=== PATIENT | male | born 1945 | race Caucasian/White ===

== ENCOUNTER → 2023-07-16 13:03 | Outpatient (REF) | payer MEDICARE, OTHER, SELFPAY ==
[2023-07-16 12:19] LABS: % Basophils 0.5 % (0-2); % Eosinophils 5.1 % (0-6); % Immature Granulocytes 0.2 % (0-0.5); % Lymphocytes 42.7 % (20.5-51.1); % Monocytes 8.7 % (1.7-9.3); % Neutrophils 42.8 % (42.2-75.2); Absolute Eosinophils 0.3 10^3/uL (0-0.7); Absolute Lymphocytes 2.8 10^3/uL (1.2-3.4); Absolute Monocytes 0.6 10^3/uL (0.1-0.6); Absolute Neutrophils 2.8 10^3/uL (1.4-6.5); Hematocrit 38.8 % (39.0-52.0); Hemoglobin 13.1 g/dL (13.0-18.0); Mean Corp Hgb Conc. 33.8 g/dL (33.0-37.0); Mean Corpuscular Hgb 32.2 pg (27.0-31.0); Mean Corpuscular Volume 95.3 fL (80.0-94.0); Mean Platelet Volume 9.9 fL (7.4-10.4); Platelet Count 256 10^3/uL (130-400); Red Blood Cell Count 4.07 10^6/uL (4.70-6.10); White Blood Cell Count 6.4 10^3/uL (4.8-10.8)
[2023-07-16 13:07] LABS: ALT (SGPT) 19 U/L (0-50); AST (SGOT) 36 U/L (17-59); Albumin 4.3 g/dl (3.5-5.0); Alkaline Phosphatase 65 U/L (38-126); Blood Urea Nitrogen 22 mg/dl (9-20); Calcium 9.9 mg/dl (8.4-10.2); Carbon Dioxide 26 mmol/L (22-30); Chloride 105 mmol/L (98-107); Glucose 110 mg/dl (70-99); Sodium 137 mmol/L (135-145); Total Bilirubin 0.9 mg/dl (0.2-1.3); Total Protein 7.1 g/dl (6.3-8.2); eGFR > 60.00
[2023-07-16 13:27] LABS: PSA, Total - Diagnostic 2.28 ng/ml (0.0-4.0)
== END ==
LOC: OIDL 13:03
PROVIDERS: ATTENDING PHYSICIAN Nurse Practitioner Adult Health
DX: C61 Malignant neoplasm of prostate (principal)
CPT/HCPCS: 80053; 84153; 85025

== ENCOUNTER → 2023-08-06 09:45 | Outpatient (REF) | payer MEDICARE, OTHER, SELFPAY ==
[2023-08-06 12:42] LABS: % Basophils 0.7 % (0-2); % Eosinophils 2.7 % (0-6); % Immature Granulocytes 0.3 % (0-0.5); % Lymphocytes 34.8 % (20.5-51.1); % Monocytes 8.8 % (1.7-9.3); % Neutrophils 52.7 % (42.2-75.2); Absolute Basophils 0.1 10^3/uL (0-0.2); Absolute Eosinophils 0.3 10^3/uL (0-0.7); Absolute Lymphocytes 4.2 10^3/uL (1.2-3.4); Absolute Monocytes 1.1 10^3/uL (0.1-0.6); Absolute Neutrophils 6.3 10^3/uL (1.4-6.5); Hematocrit 38.3 % (39.0-52.0); Hemoglobin 12.9 g/dL (13.0-18.0); Mean Corp Hgb Conc. 33.7 g/dL (33.0-37.0); Mean Platelet Volume 10.6 fL (7.4-10.4); Nucleated Red Blood Cells % 0 % (-); Platelet Count 316 10^3/uL (130-400); Red Blood Cell Count 4.03 10^6/uL (4.70-6.10); Red Cell Dist. Width 12.8 % (11.5-14.5); White Blood Cell Count 11.9 10^3/uL (4.8-10.8)
[2023-08-06 13:16] LABS: ALT (SGPT) 18 U/L (0-50); AST (SGOT) 34 U/L (17-59); Albumin 4.5 g/dl (3.5-5.0); Alkaline Phosphatase 60 U/L (38-126); Blood Urea Nitrogen 27 mg/dl (9-20); Calcium 10.1 mg/dl (8.4-10.2); Carbon Dioxide 26 mmol/L (22-30); Chloride 104 mmol/L (98-107); Glucose 84 mg/dl (70-99); Potassium 4.6 mmol/L (3.5-5.1); Sodium 135 mmol/L (135-145); Total Protein 7.3 g/dl (6.3-8.2); eGFR > 60.00
[2023-08-06 13:47] LABS: PSA, Total - Diagnostic 2.28 ng/ml (0.0-4.0)
== END ==
LOC: HWLAB 09:45
PROVIDERS: ATTENDING PHYSICIAN Internal Medicine Hematology & Oncology; FAMILY PHYSICIAN Family Medicine
DX: C61 Malignant neoplasm of prostate (principal); C79.51 Secondary malignant neoplasm of bone; G89.3 Neoplasm related pain (acute) (chronic)
CPT/HCPCS: 36415; 80053; 84153; 85025

== ENCOUNTER → 2023-09-03 12:39 | Outpatient (REF) | payer MEDICARE, OTHER, SELFPAY ==
[2023-09-03 16:17] LABS: % Basophils 0.8 % (0-2); % Eosinophils 4.5 % (0-6); % Immature Granulocytes 0.4 % (0-0.5); % Lymphocytes 43.9 % (20.5-51.1); % Monocytes 9.2 % (1.7-9.3); % Neutrophils 41.2 % (42.2-75.2); Absolute Basophils 0.1 10^3/uL (0-0.2); Absolute Eosinophils 0.4 10^3/uL (0-0.7); Absolute Lymphocytes 3.7 10^3/uL (1.2-3.4); Absolute Monocytes 0.8 10^3/uL (0.1-0.6); Absolute Neutrophils 3.4 10^3/uL (1.4-6.5); Hematocrit 37.9 % (39.0-52.0); Hemoglobin 12.9 g/dL (13.0-18.0); Mean Corpuscular Hgb 32.7 pg (27.0-31.0); Mean Corpuscular Volume 95.9 fL (80.0-94.0); Mean Platelet Volume 10.9 fL (7.4-10.4); Nucleated Red Blood Cells % 0 % (-); Platelet Count 282 10^3/uL (130-400); Red Blood Cell Count 3.95 10^6/uL (4.70-6.10); Red Cell Dist. Width 12.5 % (11.5-14.5); White Blood Cell Count 8.4 10^3/uL (4.8-10.8)
[2023-09-03 16:20] LABS: ALT (SGPT) 17 U/L (0-50); AST (SGOT) 35 U/L (17-59); Albumin 4.2 g/dl (3.5-5.0); Alkaline Phosphatase 67 U/L (38-126); Blood Urea Nitrogen 25 mg/dl (9-20); Calcium 10.4 mg/dl (8.4-10.2); Carbon Dioxide 28 mmol/L (22-30); Chloride 103 mmol/L (98-107); Glucose 88 mg/dl (70-99); Potassium 4.3 mmol/L (3.5-5.1); Sodium 136 mmol/L (135-145); Total Bilirubin 1.1 mg/dl (0.2-1.3); eGFR > 60.00
[2023-09-03 16:50] LABS: PSA, Total - Diagnostic 1.79 ng/ml (0.0-4.0)
== END ==
LOC: HWLAB 12:39
PROVIDERS: ATTENDING PHYSICIAN Internal Medicine Hematology & Oncology; FAMILY PHYSICIAN Family Medicine
DX: C61 Malignant neoplasm of prostate (principal); C79.51 Secondary malignant neoplasm of bone; G89.3 Neoplasm related pain (acute) (chronic)
CPT/HCPCS: 36415; 80053; 84153; 85025

== ENCOUNTER → 2023-10-01 10:56 | Outpatient (REF) | payer MEDICARE, OTHER, SELFPAY ==
[2023-10-01 12:19] LABS: % Basophils 0.7 % (0-2); % Eosinophils 3.2 % (0-6); % Immature Granulocytes 0.3 % (0-0.5); % Lymphocytes 39.1 % (20.5-51.1); % Monocytes 8.1 % (1.7-9.3); % Neutrophils 48.6 % (42.2-75.2); Absolute Basophils 0.1 10^3/uL (0-0.2); Absolute Eosinophils 0.3 10^3/uL (0-0.7); Absolute Lymphocytes 3.5 10^3/uL (1.2-3.4); Absolute Monocytes 0.7 10^3/uL (0.1-0.6); Absolute Neutrophils 4.4 10^3/uL (1.4-6.5); Hematocrit 37.1 % (39.0-52.0); Hemoglobin 12.5 g/dL (13.0-18.0); Mean Corp Hgb Conc. 33.7 g/dL (33.0-37.0); Mean Corpuscular Hgb 32.6 pg (27.0-31.0); Mean Corpuscular Volume 96.9 fL (80.0-94.0); Mean Platelet Volume 10.3 fL (7.4-10.4); Nucleated Red Blood Cells % 0 % (-); Platelet Count 286 10^3/uL (130-400); Red Blood Cell Count 3.83 10^6/uL (4.70-6.10); Red Cell Dist. Width 12.8 % (11.5-14.5)
[2023-10-01 12:21] LABS: ALT (SGPT) 15 U/L (0-50); AST (SGOT) 28 U/L (17-59); Albumin 4.2 g/dl (3.5-5.0); Alkaline Phosphatase 59 U/L (38-126); Blood Urea Nitrogen 23 mg/dl (9-20); Calcium 10.1 mg/dl (8.4-10.2); Carbon Dioxide 30 mmol/L (22-30); Chloride 102 mmol/L (98-107); Glucose 104 mg/dl (70-99); Potassium 4.6 mmol/L (3.5-5.1); Sodium 139 mmol/L (135-145); Total Bilirubin 0.8 mg/dl (0.2-1.3); Total Protein 6.9 g/dl (6.3-8.2); eGFR > 60.00
[2023-10-01 12:59] LABS: PSA, Total - Diagnostic 2.07 ng/ml (0.0-4.0)
== END ==
LOC: HWLAB 10:56
PROVIDERS: ATTENDING PHYSICIAN Internal Medicine Hematology & Oncology; FAMILY PHYSICIAN Family Medicine
DX: C61 Malignant neoplasm of prostate (principal); C79.51 Secondary malignant neoplasm of bone; G89.3 Neoplasm related pain (acute) (chronic)
CPT/HCPCS: 36415; 80053; 84153; 85025

== ENCOUNTER 2023-10-07 06:18 | Outpatient (RCR) | payer MEDICARE, OTHER, SELFPAY | END 2023-10-07 10:34 | disposition home or self-care (01) | LOC: RPT 06:18 | PROVIDERS: ATTENDING PHYSICIAN Nurse Practitioner Adult Health; FAMILY PHYSICIAN Family Medicine | DX: G89.3 Neoplasm related pain (acute) (chronic) (principal); R53.83 Other fatigue; R26.89 Other abnormalities of gait and mobility; Z73.6 Limitation of activities due to disability | CPT/HCPCS: 97161 ==

== ENCOUNTER 2023-10-25 16:13 | Inpatient (IN) | payer MEDICARE, OTHER, SELFPAY ==
[2023-10-25] VITALS (24 sets, daily range): BP systolic 83–131; BP diastolic 40–88; BMI 33.4
--- NOTE | 2023-10-25 07:58 | ED.GENMED ---
History of Present Illness
General
Chief Complaint: Breathing Problem
Time Seen by Provider: 10/25/23 07:52
History of Present Illness
History of Present Illness:
77-year-old male with history of metastatic prostate cancer presents to the emergency department for evaluation of cough, shortness of breath, and general fatigue/weakness for the past 2 to 3 days. Patient's son notes that his blood pressure has
been running low this weekend. He has been constipated as well after starting new opiate pain medications for back pain secondary to prostate cancer metastases. He denies subjective fever however was noted to be febrile on arrival. He is also
hypoxic on arrival and does not require supplemental oxygen use.
Past History
Past History
ED Past Medical History: CAD, HTN and Other (Myotonic dystrophy)
ED Past Surgical History: Cardiac (cabg x 3, stents x 2)
Social History
Tobacco: Non-smoker
Alcohol: None
Drug: None
Personal:
Living: with family
Review of Systems
Review of Systems
Allergies reviewed?: Yes
All Other Systems: ROS reviewed and negative except as documented in HPI and ROS
Phy Exam
Physical Exam
Physical Exam:
GEN: Well appearing, NAD, WDWN
Eyes: PERRLA, EOMs intact, no scleral icterus
HENT: NCAT, oral mucosa moist, no JVD, no cervical adenopathy.
Lungs: Tachypnea, diminished breath sounds with bibasilar crackles, no wheezes
Cardiac: RRR, no M/R/G, no peripheral edema. Radial pulses 2+ bilat
Abdomen: S, NT, ND, NABS, no masses or hepatosplenomegaly
Neuro: AO x 3
MSK: No gross deformity or ecchymosis. 2+ bilateral lower extremity edema reportedly chronic. No digital clubbing
Skin: No rashes, petechiae. Normal color, no pallor or jaundice.
Psych: Calm, cooperative, proper hygiene
Scores
Heart Failure Risk
Heart Failure Risk Score: Not Applicable
Course
Orders/Labs/Results
Orders:
Orders
10/25/23 07:59
CR Chest - 2 Views Urgent
Comment:
Reason For Exam: cough/SOB
10/25/23 08:01
COVID-19 Antigen Urgent
Source: Nasal Swab
Complete Blood Count/With Diff Urgent
Comprehensive Metabolic Panel Urgent
Lactic Acid Q4H
Comment: CANCEL 2nd LACTIC ACID IF 1st LACTIC ACID IS LESS THAN 2
Prothrombin Time Urgent
Influenza A+B Rapid Molecular Urgent
KORIN Source: Nasal Swab
Specimen Description:
10/25/23 08:02
Blood Culture Q30M
KORIN Source: Blood/Venous
Specimen Description:
10/25/23 08:19
Blood Culture Q30M
KORIN Source: Blood/Venous
Specimen Description:
10/25/23 09:30
Acetaminophen [Tylenol] 650 mg PO NOW STA
Ibuprofen [Motrin] 400 mg PO NOW STA
10/25/23 09:39
Procalcitonin Urgent
PCT Algorithmm Indication: Respiratory
Azithromycin 500 mg/250 ml [Zithromax Infusion] 500 mg in 250 ml IV NOW
CefTRIAXone [Rocephin] 1,000 mg IV NOW STA
10/25/23 09:45
Add On- LAB Urgent
Tests Added?: procalcitonin
10/25/23 10:15
0.9% Sodium Chloride 1000 ml [Nss] 1,000 ml IV BOLUS
10/25/23 11:36
0.9% Sodium Chloride 1000 ml [Nss] 1,000 ml IV BOLUS
10/25/23 11:37
CT Chest Pe Study Urgent
Comment:
Reason For Exam: hypoxia, hypotension
10/25/23 12:00
Lactic Acid Q4H
Comment: CANCEL 2nd LACTIC ACID IF 1st LACTIC ACID IS LESS THAN 2
10/25/23 12:36
Urinalysis Reflex To Culture Urgent
Date Specimen was Collected: 10/25/23
Time Specimen was Collected: 12:35
Abnormal Lab Results
10/25/23
08:01
RBC 3.74 L 10^6/uL
(4.70-6.10)
Hgb 12.2 L g/dL
(13.0-18.0)
Hct 34.8 L %
(39.0-52.0)
MCH 32.6 H pg
(27.0-31.0)
Absolute Neuts (auto) 7.2 H 10^3/uL
(1.4-6.5)
Absolute Monos (auto) 1.3 H 10^3/uL
(0.1-0.6)
Lymphocytes % 15.9 L %
(20.5-51.1)
Monocytes % 12.1 H %
(1.7-9.3)
Creatinine 0.6 L mg/dL
(0.7-1.3)
Glucose 147 H mg/dl
(70-99)
10/25/23 08:01
10/25/23 08:01
Vital Signs
Initial and Last Documented VS:
Initial Vital Signs
Temp Pulse Resp BP Pulse Ox
100.4 F H 90 16 130/71 91
10/25/23 07:50 10/25/23 07:50 10/25/23 07:50 10/25/23 07:50 10/25/23 07:50
Last Documented Vital Signs
Temp Pulse Resp BP Pulse Ox
100.4 F H 90 16 107/60 97
10/25/23 07:50 10/25/23 07:50 10/25/23 07:50 10/25/23 12:30 10/25/23 12:30
MDM/Problems Addressed
MDM/Problems Addressed:
Unclear etiology of the patient's fever although with presence of cough and hypoxia with suspected pneumonia, no obvious infiltrate on chest x-ray however given patient's immunocompromise in the setting of metastatic prostate cancer we will cover
him with broad-spectrum pulmonary antibiotics and admit to the hospitalist service for further management and evaluation
*Critical Care Note
Total Time (30-74mins, 75-104mins- exclusive of procedures): Not Applicable
Update Note
Update Note:
1138: Pt with persistent/worsening hypotension despite IV fluids. Will obtain CTA chest to r/o PE
ED Attending Note
-
Portions of this chart may have been created with voice recognition software.� Occasional wrong word or��sound alike� substitutions may have occurred due to the inherent limitations of voice recognition software.
Discharge Plan
Departure
Patient Disposition: Admit
Date of Disposition: 10/25/23
Time of Disposition: 09:41
Admit to: Med/Surg
Presentation/result/management discussed w/ accepting MD/DO: Hospitalist
Discharge Problem:
Acute respiratory insufficiency, Pneumonia
Prescriptions:
No Action
metoprolol succinate 50 MG tablet extended release 24 hr
50 mg PO DAILY
aspirin 81 MG tablet,delayed release (DR/EC)
81 mg PO DAILY
[id number]-jcc-fmn-whccsaa-ast [MegaRed [place]-3 Krill Oil] 1,000-230-60 mg Capsule
1 cap PO DAILY
atorvastatin 40 mg tablet
40 mg PO DAILY
lisinopril 5 mg Tablet
5 mg PO DAILY
tamsulosin 0.4 mg Capsule
0.4 mg PO BID Qty: 60 0RF
docusate sodium 100 mg Capsule
100 mg PO BID Qty: 60 0RF
calcium carbonate [Calcium 600] 600 mg calcium (1,500 mg) Tablet
600 mg PO DAILY
ascorbic acid (vitamin C) [Vitamin C] 500 mg Tablet
500 mg PO DAILY
magnesium citrate Solution
300 ml PO DAILYPRN PRN (Reason: constipation)
cholecalciferol (vitamin D3) [Vitamin D3] 10 mcg (400 unit) Tablet
10 mcg PO DAILY
pyridoxine (vitamin B6) 500 mg Tablet
500 mg PO DAILY
folic acid 0.8 mg Capsule
0.8 mg PO DAILY
Orgovyx 120 mg Tablet
120 mg PO DAILY
Referrals:
Linda Ng DO [Family Provider] -
Interventions
Interventions:
*Risk Screen - Suicide Last Done: 10/25/23 07:59
*General Assessment Last Done: 10/25/23 07:55
*Neglect/Abuse Screening Last Done: 10/25/23 07:59
*ED COVID-19 Vaccine History Last Done: 10/25/23 07:50
ED- Cardiac Assessment Last Done: 10/25/23 07:58
ED- Pulmonary Assessment Last Done: 10/25/23 07:58
Discharge Date and Time
Print Language: INDONESIAN
[2023-10-25 08:19] LABS: % Basophils 0.7 % (0-2); % Immature Granulocytes 0.3 % (0-0.5); % Lymphocytes 15.9 % (20.5-51.1); % Monocytes 12.1 % (1.7-9.3); Absolute Basophils 0.1 10^3/uL (0-0.2); Absolute Eosinophils 0.1 10^3/uL (0-0.7); Absolute Lymphocytes 1.6 10^3/uL (1.2-3.4); Absolute Monocytes 1.3 10^3/uL (0.1-0.6); Absolute Neutrophils 7.2 10^3/uL (1.4-6.5); Hematocrit 34.8 % (39.0-52.0); Hemoglobin 12.2 g/dL (13.0-18.0); Mean Corp Hgb Conc. 35.1 g/dL (33.0-37.0); Mean Corpuscular Hgb 32.6 pg (27.0-31.0); Mean Platelet Volume 9.4 fL (7.4-10.4); Nucleated Red Blood Cells % 0 % (-); Platelet Count 329 10^3/uL (130-400); Red Blood Cell Count 3.74 10^6/uL (4.70-6.10); Red Cell Dist. Width 12.4 % (11.5-14.5); White Blood Cell Count 10.3 10^3/uL (4.8-10.8)
[2023-10-25 08:29] LABS: Lactic Acid 1.9 mmol/L (0.7-2.0)
[2023-10-25 08:30] LABS: ALT (SGPT) 18 U/L (0-50); AST (SGOT) 30 U/L (17-59); Albumin 4.1 g/dl (3.5-5.0); Alkaline Phosphatase 85 U/L (38-126); Blood Urea Nitrogen 18 mg/dl (9-20); Calcium 9.5 mg/dl (8.4-10.2); Carbon Dioxide 23 mmol/L (22-30); Chloride 102 mmol/L (98-107); Estimated Creatinine Clearance 107 ml/min; Glucose 147 mg/dl (70-99); Potassium 4.3 mmol/L (3.5-5.1); Sodium 137 mmol/L (135-145); Total Bilirubin 1.2 mg/dl (0.2-1.3); Total Protein 7.1 g/dl (6.3-8.2); eGFR > 60.00
[2023-10-25 08:33] LABS: COVID-19 Antigen Negative (Negative)
[2023-10-25] MEDS: TYLENOL 650 MG PO (09:33)
[2023-10-25] MEDS: MOTRIN 400 MG PO (09:33)
[2023-10-25] MEDS: ROCEPHIN 1000 MG IV (09:50)
[2023-10-25] MEDS: ZITHROMAX INFUSION 250 IV (09:50)
[2023-10-25] MEDS: NSS 1000 IV ×4 (10:18→21:18)
[2023-10-25 12:58] LABS: Urine Albumin Trace (Neg - Trace); Urine Bilirubin Negative (Negative); Urine Character Clear (Clear); Urine Color Yellow; Urine Glucose Negative (Negative); Urine Ketone Negative (Negative); Urine Leukocyte Negative (Negative); Urine Nitrite Negative (Negative); Urine Occult Blood Negative (Negative); Urine Urobilinogen Negative (Neg - 1+); Urine pH 6.5 (5.0-9.0)
[2023-10-25 14:38] LABS: Procalcitonin 0.07 ng/ml (0.0-0.25)
--- NOTE | 2023-10-25 15:38 | EDRN ---
ED RN: pt hypotensive but asymptomatic. Attending MD notified and awaiting further orders.
--- NOTE | 2023-10-25 16:02 | HPS.HSE ---
Addendum entered and electronically signed by Marisol Werner MD 10/25/23 19:40:
Patient seen and examined independently--agree with plan set forth by Dr. Perez
GENERAL: well developed, well nourished, male in no apparent distress
HEENT: NC/AT--O2 NC in place
HEART: regular rate and rhythm, +S1, +S2
LUNGS : clear to auscultation bilaterally
ABDOM: soft, nontender, nondistended, + bowel sounds
EXT: no cyanosis, clubbing, or edema
NEUROLOGIC: grossly intact
Pneumonia--likely community acquired--early sepsis with hypotension/shock but does not meet strict SIRS criteria--Lactate 1.9--CT chest 10/25/2023�There is no pulmonary embolism--There is right upper lobe pneumonia--There are blastic osseous
metastasis in the left scapula, T5 and M87--phexgnxd Rocephin/Doxycycline (interaction of azithromycin with relugolix)--continue IV fluids, received sepsis bolus dosing and is still hypotensive--started pressors--admit to IMU
Acute hypoxic respiratory insufficiency--due to community-acquired pneumonia--Patient on 2 L oxygen--Wean as tolerated, with O2 saturation maintained above 93%--Incentive spirometry
Prostate cancer--Metastatic prostate cancer with sclerotic bone lesions--On hormonal therapy with relugolix
Hyperlipidemia--Continue atorvastatin
Essential Hypertension--Metoprolol and lisinopril on hold due to hypotension
Constipation--MiraLAX as needed
DVT proph
CODE STATUS -- full code
Original Note:
Family Physician
-
Family Physician: Linda Ng
Chief Complaint
-
Shortness of breath, generalized weakness , cough
History of Present Illness
77-year-old male with past medical history of metastatic prostate cancer, CAD s/p CABG X3, hypertension, myotonic dystrophy type II presents to the hospital for evaluation of shortness of breath, cough and general fatigue/weakness since 4 days. He
denies chest pain, palpitations, abdominal pain, recent travel, recent sick contact. Patient reports his blood pressure has been running low from the past couple of weeks. He also reported having dizziness over the weekend, but no falls. Patient
reports taking tramadol as recommended by his oncologist for his low back pain secondary to prostate cancer bone mets, 5 days ago which made him constipated. He also reports having chronic urinary issues (thin urinary stream ). He denies
subjective fever however was noted to be febrile on arrival. He was also hypoxic requiring 2 L oxygen supplementation, nasal cannula. He was hypotensive at the time of examination 84/49.
Medical History
Past Medical History
Past Medical History: Reports CAD and HTN
Additional Past Medical History:
Prostate cancer with bone metastasis, myotonic dystrophy type II
Past Surgical History: Reports Other
Additional Past Surgical History:
CABG X3
Social History
Tobacco: Non-smoker
Alcohol: Occasional
Personal:
Living: With Family
Employment: Employed
Family History
Family History: Not pertinent
Allergies / Home Medications
Allergies reflects when Allergies were last updated in [employer]
Home Medications with original date entered in [employer]
Allergy/Medication List:
Home Medications Table - record
�Medication �Instructions �Recorded �Confirmed
aspirin 81 mg tablet,delayed 81 mg PO DAILY Blood clot 10/31/11 10/25/23
release prevention/tx
krill 1,000 mg-omega-3 230 mg-dha 1 cap PO DAILY Supplement 10/31/11 10/25/23
60 ad-ugz-sbyzysedo-astaxan
capsule (MegaRed [place]-3 Krill Oil)
metoprolol succinate 50 mg 50 mg PO DAILY Heart 10/31/11 10/25/23
tablet,extended release 24 hr disease/condition
atorvastatin 40 mg tablet 40 mg PO DAILY High cholesterol 07/02/22 10/25/23
lisinopril 5 mg tablet 5 mg PO DAILY Blood Pressure 02/25/23 10/25/23
docusate sodium 100 mg capsule 100 mg PO BID #60 caps 02/27/23 10/25/23
tamsulosin 0.4 mg capsule 0.4 mg PO BID #60 caps 02/27/23 10/25/23
ascorbic acid (vitamin C) 500 mg 500 mg PO DAILY 10/25/23 10/25/23
tablet (Vitamin C)
calcium carbonate (Calcium 600) 600 mg PO DAILY 10/25/23 10/25/23
cholecalciferol (vitamin D3) 10 10 mcg PO DAILY 10/25/23 10/25/23
mcg (400 unit) tablet (Vitamin D3)
folic acid 0.8 mg capsule 0.8 mg PO DAILY 10/25/23 10/25/23
magnesium citrate 300 ml PO DAILYPRN PRN constipation 10/25/23 10/25/23
pyridoxine (vitamin B6) 500 mg 500 mg PO DAILY 10/25/23 10/25/23
tablet
relugolix 120 mg tablet (Orgovyx) 120 mg PO DAILY 10/25/23 10/25/23
Patient Allergies
Allergy/AdvReac Type Severity Reaction Status Date / Time
clopidogrel bisulfate Allergy Hives Verified 10/25/23 07:52
[From Plavix]
ezetimibe Allergy muscle Verified 10/25/23 07:52
[From Vytorin 10-10] aches
simvastatin Allergy muscle Verified 10/25/23 07:52
[From Vytorin 10-10] aches
Review of Systems
-
A 12 point ROS was completed and negative except as noted: Yes
Physical Exam
Vital Signs
Vital Signs
Temp Pulse Resp BP Pulse Ox
100.4 F H 68 27 104/61 96
10/25/23 07:50 10/25/23 16:00 10/25/23 16:00 10/25/23 16:00 10/25/23 16:00
Physical Exam
General: Well Developed and Well Nourished
HEENT: NormoCephalic and Anicteric
Respiratory: Other (egophony right upper lobe)
Cardiac: S1/S2
GI: Soft, Non Tender, Non Distended and Normal Bowel Sounds
Skin: Warm and Dry
Neuro: Awake, Alert, Oriented and AO x 3
Psych: Calm
Laboratory Results
-
10/25/23 08:01
10/25/23 08:01
Laboratory Results
PT 14.0 Sec (11.4-14.6) 10/25/23 08:01
INR 1.10 10/25/23 08:01
Lactic Acid 1.9 mmol/L (0.7-2.0) 10/25/23 08:01
Total Bilirubin 1.2 mg/dl (0.2-1.3) 10/25/23 08:01
AST 30 U/L (17-59) 10/25/23 08:01
ALT 18 U/L (0-50) 10/25/23 08:01
Alkaline Phosphatase 85 U/L (38-126) 10/25/23 08:01
Impression/Plan
-
IMPRESSION:
Pneumonia
Acute hypoxic respiratory insufficiency
Hypotension
Prostate cancer
Hyperlipidemia
Hypertension
Constipation
PLAN:
#Pneumonia
Patient is febrile
Hypotensive
No leukocytosis, WBC 10.3
[address] chest 10/25/2023�There is no pulmonary embolism
There is right upper lobe pneumonia
There are blastic osseous metastasis in the left scapula, T5 and T12
Started on Rocephin, azithromycin
Trend fever curve
Trend CBC
#Acute hypoxic respiratory insufficiency
Patient on 2 L oxygen
Wean as tolerated, with O2 saturation maintained above 93%
Incentive spirometry
#Hypotension
IV fluids
Levophed, maintain MAP greater than 65
#Prostate cancer
Metastatic prostate cancer with sclerotic bone lesions
On hormonal therapy with relugolix
#Hyperlipidemia
Continue atorvastatin
#Hypertension
Metoprolol and lisinopril on hold
#Constipation
MiraLAX as needed
[2023-10-25] MEDS: FLOMAX 0.400000000000000022 MG PO (20:07)
[2023-10-25] MEDS: LOVENOX 40 MG SC (20:07)
[2023-10-25] MEDS: COLACE 100 MG PO (20:07)
[2023-10-25] MEDS: VIBRAMYCIN 100 MG PO (21:17)
[2023-10-26] VITALS (11 sets, daily range): BP systolic 99–126; BP diastolic 53–69; PULSE 78; O2SAT 96
[2023-10-26] MEDS: NSS 1000 IV ×3 (00:29→17:44)
[2023-10-26] MEDS: TYLENOL 650 MG PO ×4 (01:19→19:34)
[2023-10-26 04:32] LABS: % Basophils 0.6 % (0-2); % Eosinophils 2.7 % (0-6); % Immature Granulocytes 0.4 % (0-0.5); % Lymphocytes 22.4 % (20.5-51.1); % Monocytes 12.5 % (1.7-9.3); % Neutrophils 61.4 % (42.2-75.2); Absolute Basophils 0.1 10^3/uL (0-0.2); Absolute Eosinophils 0.2 10^3/uL (0-0.7); Absolute Monocytes 1.1 10^3/uL (0.1-0.6); Absolute Neutrophils 5.6 10^3/uL (1.4-6.5); Hematocrit 29.1 % (39.0-52.0); Mean Corp Hgb Conc. 34.4 g/dL (33.0-37.0); Mean Corpuscular Hgb 32.6 pg (27.0-31.0); Mean Corpuscular Volume 94.8 fL (80.0-94.0); Mean Platelet Volume 9.9 fL (7.4-10.4); Nucleated Red Blood Cells % 0 % (-); Platelet Count 292 10^3/uL (130-400); Red Blood Cell Count 3.07 10^6/uL (4.70-6.10); Red Cell Dist. Width 12.6 % (11.5-14.5); White Blood Cell Count 9.1 10^3/uL (4.8-10.8)
[2023-10-26 04:53] LABS: ALT (SGPT) 14 U/L (0-50); AST (SGOT) 28 U/L (17-59); Albumin 2.9 g/dl (3.5-5.0); Alkaline Phosphatase 70 U/L (38-126); Blood Urea Nitrogen 15 mg/dl (9-20); Carbon Dioxide 24 mmol/L (22-30); Chloride 108 mmol/L (98-107); Estimated Creatinine Clearance 107 ml/min; Glucose 98 mg/dl (70-99); Potassium 4.2 mmol/L (3.5-5.1); Sodium 137 mmol/L (135-145); Total Bilirubin 0.6 mg/dl (0.2-1.3); Total Protein 5.3 g/dl (6.3-8.2); eGFR > 60.00
--- NOTE | 2023-10-26 06:13 | PTCARENOTE ---
pt had 3 bm's and urinated each time- unable to get u/a. ax3- low grade fevers medicated with Tylenol. Levophed never needed- 2 liters to maintain sats- lungs are coarse. [employer] fundraiser cough
[2023-10-26] MEDS: FOLVITE 0.800000000000000044 MG PO (08:25)
[2023-10-26] MEDS: OSCAL CAL 500 500 MG PO (08:25)
[2023-10-26] MEDS: VITAMIN C 500 MG PO (08:25)
[2023-10-26] MEDS: FLOMAX 0.400000000000000022 MG PO ×2 (08:25→19:34)
[2023-10-26] MEDS: VIBRAMYCIN 100 MG PO ×2 (08:25→19:34)
[2023-10-26] MEDS: ASPIR LOW (ENTERIC COATED) 81 MG PO (08:25)
[2023-10-26] MEDS: VITAMIN D3 (cholecalciferol) 10 MCG PO (08:25)
[2023-10-26] MEDS: LIPITOR 40 MG PO (08:25)
[2023-10-26] MEDS: COLACE 100 MG PO ×2 (08:25→19:34)
[2023-10-26] MEDS: ROCEPHIN 1000 MG IV (10:14)
[2023-10-26] MEDS: STERILE WATER FOR INJECTION 10 ML IV (10:14)
[2023-10-26] MEDS: PREPARATION H OINTMENT 1 APPLIC RECTAL (11:05)
--- NOTE | 2023-10-26 13:13 | CM ---
Patient with Hx Metastatic prostate cancer with Dx pneumonia. O2 2L. Receiving IV Abx. PT & OT recommend HH.
Met with patient who resides with his in a 2 story house with ramp through garage entrance.
The patient has been independent in ADLs and ambulates using his rollator.
He also takes a SPC with him when he goes out in case he feels like he might fall - he uses it to help him get up off the ground.
The patient states he fell 5 days ago and also 2 months ago.
He works out at a gym 3x/week and has gym equipment at home.
DME - rollator, SPC
No prior VN or SNF.
PCP - Linda Ng
[facility]armacy - [facility]
Son Grabiel is primary contact per patient.
Offered VN and patient chooses [facility]- he agrees to SN/PT/OT.
Referral to [facility].
Plan watch for home O2 needs.
Plan home with [facility].
--- NOTE | 2023-10-26 13:33 | PTCARENOTE ---
Received patient to [place] alert and oriented. Ambulates with steady gait and 1 stand by assist, uses rollator. Oriented to room , call kaur in reach, denies any complaints or pain or discomfort.
--- NOTE | 2023-10-26 15:40 | W.PN.HOSP.TC ---
Today's Communication/Plan
-
Transfer to [facility]
Continue antibiotics
wean off o2 as possible
Assessment / Plan
Assessment / Plan
Community acquired Pneumonia
-early sepsis with hypotension/shock but does not meet strict SIRS criteria
-Lactate 1.9 in ER
-CT chest 10/25/2023�There is no pulmonary embolism--There is right upper lobe pneumonia--There are blastic osseous metastasis in the left scapula, T5 and T12
-continue Rocephin/Doxycycline (interaction of azithromycin with relugolix)
-BP remains soft although asymptomatic, transfer to med/surg.
Acute hypoxic respiratory insufficiency
-due to community-acquired pneumonia
-Patient on 2 L oxygen
-Wean as tolerated, with O2 saturation maintained above 93%
-Incentive spirometry
Prostate cancer
-Metastatic prostate cancer with sclerotic bone lesions
-On hormonal therapy with relugolix
Hyperlipidemia
-Continue atorvastatin
Essential Hypertension
-Metoprolol and lisinopril on hold due to hypotension
Constipation
-MiraLAX as needed
DVT proph
CODE STATUS -- full code
Anticipated Discharge: 24 - 48 hours
Subjective/Interval History
-
Date of Service: October 26, 2023
afebrile in night
remains on o2
no acute issues reported
Objective Data
-
Labs:
Laboratory Results
10/26/23
03:41
WBC 9.1
Hgb 10.0 L
Hct 29.1 L
Plt Count 292
Sodium 137
Potassium 4.2
Chloride 108 H
Carbon Dioxide 24
BUN 15
Creatinine 0.5 L
Glucose 98
Calcium 8.0 L D
Total Bilirubin 0.6
AST 28
ALT 14
Alkaline Phosphatase 70
Vital Signs:
Vital Signs
Temp Pulse Resp BP Pulse Ox
100.3 F 92 20 126/58 96
10/26/23 15:37 10/26/23 15:37 10/26/23 15:37 10/26/23 15:37 10/26/23 15:37
Review of Systems
-
Respiratory: Reports No Symptoms
Cardiac: Reports No Symptoms
Abdomen/GI: Reports No Symptoms
Physical Exam
-
General: No Apparent Distress and Comfortable
HEENT: Negative Oxygen
Respiratory: Clear to Auscultation
Cardiac: Regular Rhythm and S1/S2; Negative Murmur or Rub
GI: Soft, Nontender, Nondistended and Normal Bowel Sounds
Musculoskeletal: No Edema
Neuro: Awake, Alert, Oriented, No Motor Deficits and Nonfocal/Grossly Intact
Psych: Calm
[2023-10-26] MEDS: LOVENOX 40 MG SC (17:43)
[2023-10-26 20:39] LABS: Urine Albumin Negative (Neg - Trace); Urine Bilirubin Negative (Negative); Urine Character Clear (Clear); Urine Color Yellow; Urine Glucose Negative (Negative); Urine Ketone Negative (Negative); Urine Leukocyte Negative (Negative); Urine Nitrite Negative (Negative); Urine Occult Blood Negative (Negative); Urine Specific Gravity 1.015 (<1.030); Urine Urobilinogen Negative (Neg - 1+)
[2023-10-26] MEDS: NON-FORMULARY ITEM PO (21:54)
[2023-10-27] MEDS: TYLENOL 650 MG PO ×3 (01:35→18:35)
[2023-10-27 07:57] VITALS: BP 101/54
[2023-10-27] MEDS: NON-FORMULARY ITEM 120 MG PO (08:48)
[2023-10-27] MEDS: COLACE 100 MG PO ×2 (08:49→20:36)
[2023-10-27] MEDS: OSCAL CAL 500 500 MG PO (08:49)
[2023-10-27] MEDS: LIPITOR 40 MG PO (08:49)
[2023-10-27] MEDS: FLOMAX 0.400000000000000022 MG PO ×2 (08:49→20:36)
[2023-10-27] MEDS: VIBRAMYCIN 100 MG PO ×2 (08:49→20:36)
[2023-10-27] MEDS: ASPIR LOW (ENTERIC COATED) 81 MG PO (08:49)
[2023-10-27] MEDS: FOLVITE 0.800000000000000044 MG PO (08:49)
[2023-10-27] MEDS: VITAMIN D3 (cholecalciferol) 10 MCG PO (08:49)
[2023-10-27] MEDS: VITAMIN C 500 MG PO (08:50)
[2023-10-27] MEDS: STERILE WATER FOR INJECTION 10 ML IV (08:50)
[2023-10-27] MEDS: ROCEPHIN 1000 MG IV (08:50)
[2023-10-27 11:02] LABS: Hematocrit 29.9 % (39.0-52.0); Hemoglobin 10.2 g/dL (13.0-18.0); Mean Corp Hgb Conc. 34.1 g/dL (33.0-37.0); Mean Corpuscular Hgb 32.5 pg (27.0-31.0); Mean Corpuscular Volume 95.2 fL (80.0-94.0); Mean Platelet Volume 9.3 fL (7.4-10.4); Platelet Count 310 10^3/uL (130-400); Red Blood Cell Count 3.14 10^6/uL (4.70-6.10); White Blood Cell Count 12.3 10^3/uL (4.8-10.8)
[2023-10-27 11:24] LABS: Blood Urea Nitrogen 11 mg/dl (9-20); Calcium 8.5 mg/dl (8.4-10.2); Carbon Dioxide 25 mmol/L (22-30); Chloride 107 mmol/L (98-107); Estimated Creatinine Clearance 107 ml/min; Glucose 116 mg/dl (70-99); Potassium 3.7 mmol/L (3.5-5.1); Sodium 137 mmol/L (135-145); eGFR > 60.00
--- NOTE | 2023-10-27 11:39 | CM ---
Patient seen bedside, remains on O2. Patient reports his is on home O2 through [employer] if patient does require home oxygen. CM will continue to follow for all discharge planning needs.
Plan; home with [facility] when stable, watch O2 needs.
[2023-10-27 16:00] VITALS: BP 110/50
--- NOTE | 2023-10-27 16:44 | W.PN.HOSP.TC ---
Today's Communication/Plan
-
continue abx
wean off o2 as possible
Assessment / Plan
Assessment / Plan
Community acquired Pneumonia
-early sepsis with hypotension/shock but does not meet strict SIRS criteria
-Lactate 1.9 in ER
-CT chest 10/25/2023�There is no pulmonary embolism--There is right upper lobe pneumonia--There are blastic osseous metastasis in the left scapula, T5 and T12
-continue Rocephin/Doxycycline (interaction of azithromycin with relugolix)
-BP remains soft although asymptomatic, transfer to med/surg.
Acute hypoxic respiratory insufficiency
-due to community-acquired pneumonia
-Patient on 2 L oxygen
-Wean as tolerated, with O2 saturation maintained above 93%
-Incentive spirometry
Prostate cancer
-Metastatic prostate cancer with sclerotic bone lesions
-On hormonal therapy with relugolix
Hyperlipidemia
-Continue atorvastatin
Essential Hypertension
-Metoprolol and lisinopril on hold due to hypotension
Constipation
-MiraLAX as needed
DVT proph
CODE STATUS -- full code
Anticipated Discharge: Within 24 hours
Subjective/Interval History
-
Date of Service: October 27, 2023
Remains hypoxic on 2l O2 through nasal cannula
No other acute issues
Objective Data
-
Labs:
Laboratory Results
10/27/23
10:45
WBC 12.3 H
Hgb 10.2 L
Hct 29.9 L
Plt Count 310
Sodium 137
Potassium 3.7
Chloride 107
Carbon Dioxide 25
BUN 11
Creatinine 0.5 L
Glucose 116 H
Calcium 8.5
Vital Signs:
Vital Signs
Temp Pulse Resp BP Pulse Ox
97.4 F 79 18 110/50 94
10/27/23 16:00 06/25/24 16:00 10/27/23 16:00 10/27/23 16:00 10/27/23 16:00
I&O
10/26/23 10/27/23 10/28/23
06:59 06:59 06:59
Intake Total 870 / 870
Output Total 0 / 0
Balance 870 / 870
Review of Systems
-
Respiratory: Reports No Symptoms
Cardiac: Reports No Symptoms
Abdomen/GI: Reports No Symptoms
Physical Exam
-
General: No Apparent Distress and Comfortable
HEENT: Negative Oxygen
Respiratory: Other (Oxygen through NC)
Cardiac: Regular Rhythm and S1/S2; Negative Murmur or Rub
GI: Soft, Nontender and Nondistended
Musculoskeletal: No Edema
Neuro: Awake, Alert, Oriented, No Motor Deficits and Nonfocal/Grossly Intact
Psych: Calm
[2023-10-27 16:52] VITALS: PULSE 98; O2SAT 95
[2023-10-27] MEDS: LOVENOX 40 MG SC (17:10)
[2023-10-27 23:11] VITALS: BP 113/54
[2023-10-28 07:33] LABS: Hematocrit 28.9 % (39.0-52.0); Hemoglobin 9.9 g/dL (13.0-18.0); Mean Corp Hgb Conc. 34.3 g/dL (33.0-37.0); Mean Corpuscular Hgb 32.4 pg (27.0-31.0); Mean Corpuscular Volume 94.4 fL (80.0-94.0); Mean Platelet Volume 9.9 fL (7.4-10.4); Platelet Count 340 10^3/uL (130-400); Red Blood Cell Count 3.06 10^6/uL (4.70-6.10); Red Cell Dist. Width 13.1 % (11.5-14.5)
[2023-10-28 07:51] LABS: Blood Urea Nitrogen 12 mg/dl (9-20); Calcium 8.7 mg/dl (8.4-10.2); Carbon Dioxide 24 mmol/L (22-30); Chloride 106 mmol/L (98-107); Estimated Creatinine Clearance 107 ml/min; Glucose 107 mg/dl (70-99); Potassium 3.6 mmol/L (3.5-5.1); Sodium 137 mmol/L (135-145); eGFR > 60.00
[2023-10-28 08:00] VITALS: BP 114/57
[2023-10-28] MEDS: OSCAL CAL 500 500 MG PO (08:26)
[2023-10-28] MEDS: VIBRAMYCIN 100 MG PO (08:26)
[2023-10-28] MEDS: ASPIR LOW (ENTERIC COATED) 81 MG PO (08:26)
[2023-10-28] MEDS: NON-FORMULARY ITEM 120 MG PO (08:26)
[2023-10-28] MEDS: VITAMIN D3 (cholecalciferol) 10 MCG PO (08:26)
[2023-10-28] MEDS: FOLVITE 0.800000000000000044 MG PO (08:26)
[2023-10-28] MEDS: VITAMIN C 500 MG PO (08:27)
[2023-10-28] MEDS: LIPITOR 40 MG PO (08:27)
[2023-10-28] MEDS: FLOMAX 0.400000000000000022 MG PO (08:27)
[2023-10-28] MEDS: COLACE 100 MG PO (08:27)
[2023-10-28] MEDS: STERILE WATER FOR INJECTION 10 ML IV (10:09)
[2023-10-28] MEDS: ROCEPHIN 1000 MG IV (10:09)
--- NOTE | 2023-10-28 10:57 | W.PN.HOSP.TC ---
Today's Communication/Plan
-
d/c home with hh
Assessment / Plan
Assessment / Plan
Community acquired Pneumonia
-early sepsis with hypotension/shock but does not meet strict SIRS criteria
-Lactate 1.9 in ER
-CT chest 10/25/2023�There is no pulmonary embolism--There is right upper lobe pneumonia--There are blastic osseous metastasis in the left scapula, T5 and T12
-continue Rocephin/Doxycycline (interaction of azithromycin with relugolix)
-BP remains soft although asymptomatic, transfer to med/surg.
Acute hypoxic respiratory insufficiency
-due to community-acquired pneumonia
-Patient required home oxygen management. Home oxygen assessment ordered.
Prostate cancer
-Metastatic prostate cancer with sclerotic bone lesions
-On hormonal therapy with relugolix
Hyperlipidemia
-Continue atorvastatin
Essential Hypertension
-Metoprolol and lisinopril on hold due to hypotension
Constipation
-MiraLAX as needed
-Patient to get dose of Citroma
Hemorrhoids
-Anusol suppository and Preparation H prescription sent to pharmacy
DVT proph
CODE STATUS -- full code
More than 30 minutes spent in discharge including
Final examination of the patient
Summarizing hospital stay
Instructions for continuing care to all relevant caregivers
Preparation of discharge records, prescriptions, and referral forms
Total time spent (in minutes): 37 mins
Anticipated Discharge: Today
Subjective/Interval History
-
Date of Service: October 28, 2023
Resting comfortably in bed
remains on o2 through NC
no acute issues
Objective Data
-
Labs:
Laboratory Results
10/28/23
06:37
WBC 12.0 H
Hgb 9.9 L
Hct 28.9 L
Plt Count 340
Sodium 137
Potassium 3.6
Chloride 106
Carbon Dioxide 24
BUN 12
Creatinine 0.5 L
Glucose 107 H
Calcium 8.7
Vital Signs:
Vital Signs
Temp Pulse Resp BP Pulse Ox
98 F 76 21 114/57 97
10/28/23 08:00 10/28/23 08:00 10/28/23 08:00 10/28/23 08:00 10/28/23 08:00
I&O
10/27/23 10/28/23 10/29/23
06:59 06:59 06:59
Intake Total 870 / 870 960 / 960
Output Total 0 / 0
Balance 870 / 870 960 / 960
Review of Systems
-
Respiratory: Reports No Symptoms
Cardiac: Reports No Symptoms
Abdomen/GI: Reports No Symptoms
Physical Exam
-
General: No Apparent Distress and Comfortable
HEENT: Oxygen
Respiratory: Other (Oxygen through NC)
Cardiac: Regular Rhythm and S1/S2; Negative Murmur or Rub
GI: Soft, Nontender and Nondistended
Musculoskeletal: No Edema
Neuro: Awake, Alert, Oriented, No Motor Deficits and Nonfocal/Grossly Intact
Psych: Calm
[2023-10-28] MEDS: CITROMA 300 ML PO (12:06)
[2023-10-28] MEDS: ANUSOL HC 25 MG RECTAL (12:06)
--- NOTE | 2023-10-28 12:59 | VNURNOTE ---
Home Health Liaison met with patient at 1130 to discuss [facility] nurse/therapy, visits, schedule and homebound status. Patient is agreeable and understands that visits at home will be 2-3 x per week to assess and teach medical management.
[facility] brochure provided with contact information. Patient is aware that [facility] will contact them for start of care in 1-2 days after discharge from .
[facility] referral completed in [facility].
Awaiting home O2 assessment to be completed to determine need for O2. Patient would like to use [employer] if needed.
[2023-10-28 13:35] VITALS: BP 115/85
--- NOTE | 2023-10-28 14:17 | VNURNOTE ---
Home Health Liaison met with patient and [place] at 1200 to [facility], visits, schedule and homebound status. Patient is agreeable and understands that visits at home will be 2-3 x per week to assess and teach medical
management. Many questions answered.
[facility] brochure provided with contact information. Patient is aware that [facility] will contact them for start of care in 1-2 days after discharge from .
[facility] referral completed in [facility].
Liaison discussed various DME that patient would like to order for home: Lift chair, donut cushion, walker and commode.
Both patient and understand that lift chair could be rented at approximately $125/per month, commode and donut cushion may not be covered by insurance. DME company will call to discuss charges if any and rental fee and arrange delivery of
above items.
Lift chair, donut cushion, commode and walker ordered from [facility], all info faxed at [phone].
--- NOTE | 2023-10-28 14:27 | VNURNOTE ---
Disregard previous note written in error at 1417.
--- NOTE | 2023-10-28 14:51 | CM ---
CM reviewed chart, patient home with [facility]. Per Respiratory, patient does not qualify for home O2. CM will continue to follow for all discharge planning needs.
Plan; home with [facility].
== END 2023-10-28 14:17 | disposition home health service (06) | DRG 871 ==
LOC: 4 WEST ACU 16:13
PROVIDERS: Physician Assistant; Student in an Organized Health Care Education/Training Program; ADMITTING PHYSICIAN Internal Medicine; ATTENDING PHYSICIAN Hospitalist; EMERGENCY PHYSICIAN Emergency Medicine; FAMILY PHYSICIAN Family Medicine
DX: A41.9 Sepsis, unspecified organism (principal); J18.9 Pneumonia, unspecified organism; R65.21 Severe sepsis with septic shock; C79.51 Secondary malignant neoplasm of bone; R06.89 Other abnormalities of breathing; R09.02 Hypoxemia; C61 Malignant neoplasm of prostate; E78.5 Hyperlipidemia, unspecified; I10 Essential (primary) hypertension; K59.00 Constipation, unspecified; K64.9 Unspecified hemorrhoids; Z11.52 Encounter for screening for COVID-19
CPT/HCPCS: 71046; 71275; 80048; 80053; 81003; 83605; 84145; 85025; 85027; 85610; 87040; 87502; 87811; 97116; 97162; 97166; 99285; Q9967

== ENCOUNTER → 2023-11-03 07:40 | Outpatient (REF) | payer MEDICARE, OTHER, SELFPAY ==
[2023-11-03 09:37] LABS: % Basophils 0.8 % (0-2); % Eosinophils 3.6 % (0-6); % Immature Granulocytes 1.3 % (0-0.5); % Lymphocytes 37.5 % (20.5-51.1); % Monocytes 9.5 % (1.7-9.3); % Neutrophils 47.3 % (42.2-75.2); Absolute Basophils 0.1 10^3/uL (0-0.2); Absolute Eosinophils 0.4 10^3/uL (0-0.7); Absolute Immature Granulocytes 0.1 10^3/uL (0-0.05); Absolute Lymphocytes 3.6 10^3/uL (1.2-3.4); Absolute Monocytes 0.9 10^3/uL (0.1-0.6); Absolute Neutrophils 4.6 10^3/uL (1.4-6.5); Hematocrit 36.3 % (39.0-52.0); Hemoglobin 12.5 g/dL (13.0-18.0); Mean Corp Hgb Conc. 34.4 g/dL (33.0-37.0); Mean Corpuscular Hgb 32.2 pg (27.0-31.0); Mean Corpuscular Volume 93.6 fL (80.0-94.0); Mean Platelet Volume 9.2 fL (7.4-10.4); Nucleated Red Blood Cells % 0 % (-); Platelet Count 468 10^3/uL (130-400); Red Blood Cell Count 3.88 10^6/uL (4.70-6.10); Red Cell Dist. Width 13.2 % (11.5-14.5); White Blood Cell Count 9.7 10^3/uL (4.8-10.8)
[2023-11-03 09:52] LABS: ALT (SGPT) 39 U/L (0-50); AST (SGOT) 46 U/L (17-59); Albumin 3.9 g/dl (3.5-5.0); Alkaline Phosphatase 90 U/L (38-126); Blood Urea Nitrogen 20 mg/dl (9-20); Calcium 10.5 mg/dl (8.4-10.2); Carbon Dioxide 28 mmol/L (22-30); Chloride 103 mmol/L (98-107); Glucose 100 mg/dl (70-99); Potassium 4.5 mmol/L (3.5-5.1); Sodium 138 mmol/L (135-145); Total Bilirubin 0.8 mg/dl (0.2-1.3); Total Protein 6.8 g/dl (6.3-8.2); eGFR > 60.00
[2023-11-03 10:21] LABS: PSA, Total - Diagnostic 3.91 ng/ml (0.0-4.0)
[2023-11-03 10:23] LABS: Testosterone, Total 20.2 ng/dl (72-623)
== END ==
LOC: HWLAB 07:40
PROVIDERS: ATTENDING PHYSICIAN Internal Medicine Hematology & Oncology; FAMILY PHYSICIAN Family Medicine
DX: C61 Malignant neoplasm of prostate (principal); C79.51 Secondary malignant neoplasm of bone; G89.3 Neoplasm related pain (acute) (chronic)
CPT/HCPCS: 36415; 80053; 84153; 84403; 85025

== ENCOUNTER → 2023-11-10 08:33 | Outpatient (REF) | payer MEDICARE, OTHER, SELFPAY | LOC: RAD 08:33 | PROVIDERS: ATTENDING PHYSICIAN Internal Medicine Hematology & Oncology; FAMILY PHYSICIAN Family Medicine | DX: C61 Malignant neoplasm of prostate (principal); C79.51 Secondary malignant neoplasm of bone; G89.3 Neoplasm related pain (acute) (chronic) | CPT/HCPCS: 74177; 78306; A9503; Q9967 ==

== ENCOUNTER → 2023-11-17 15:48 | Outpatient (REF) | payer MEDICARE, OTHER, SELFPAY | LOC: HWRCS 15:48 | PROVIDERS: ATTENDING PHYSICIAN Internal Medicine Cardiovascular Disease; FAMILY PHYSICIAN Family Medicine | DX: R06.02 Shortness of breath (principal); Z95.1 Presence of aortocoronary bypass graft; R06.09 Other forms of dyspnea; R01.1 Cardiac murmur, unspecified | CPT/HCPCS: 93306 ==

== ENCOUNTER → 2023-12-02 08:53 | Outpatient (REF) | payer MEDICARE, OTHER, SELFPAY ==
[2023-12-02 12:12] LABS: % Basophils 0.7 % (0-2); % Eosinophils 3.2 % (0-6); % Immature Granulocytes 0.4 % (0-0.5); % Monocytes 8.5 % (1.7-9.3); % Neutrophils 48.2 % (42.2-75.2); Absolute Basophils 0.1 10^3/uL (0-0.2); Absolute Eosinophils 0.3 10^3/uL (0-0.7); Absolute Lymphocytes 3.3 10^3/uL (1.2-3.4); Absolute Monocytes 0.7 10^3/uL (0.1-0.6); Absolute Neutrophils 4.1 10^3/uL (1.4-6.5); Hemoglobin 12.2 g/dL (13.0-18.0); Mean Corp Hgb Conc. 34.9 g/dL (33.0-37.0); Mean Corpuscular Hgb 33.4 pg (27.0-31.0); Mean Corpuscular Volume 95.9 fL (80.0-94.0); Mean Platelet Volume 10.2 fL (7.4-10.4); Nucleated Red Blood Cells % 0 % (-); Platelet Count 314 10^3/uL (130-400); Red Blood Cell Count 3.65 10^6/uL (4.70-6.10); Red Cell Dist. Width 12.9 % (11.5-14.5); White Blood Cell Count 8.5 10^3/uL (4.8-10.8)
[2023-12-02 12:29] LABS: Blood Urea Nitrogen 28 mg/dl (9-20); Carbon Dioxide 23 mmol/L (22-30); Chloride 104 mmol/L (98-107); Glucose 116 mg/dl (70-99); Potassium 4.2 mmol/L (3.5-5.1); Sodium 135 mmol/L (135-145); eGFR > 60.00
[2023-12-02 12:56] LABS: PSA, Total - Diagnostic 4.77 ng/ml (0.0-4.0)
== END ==
LOC: HWLAB 08:53
PROVIDERS: ATTENDING PHYSICIAN Internal Medicine Hematology & Oncology; FAMILY PHYSICIAN Family Medicine
DX: C61 Malignant neoplasm of prostate (principal); C79.51 Secondary malignant neoplasm of bone; G89.3 Neoplasm related pain (acute) (chronic)
CPT/HCPCS: 36415; 80048; 84153; 85025

== ENCOUNTER → 2023-12-28 09:45 | Outpatient (REF) | payer MEDICARE, OTHER, SELFPAY | LOC: HWRAD 09:45 | PROVIDERS: ATTENDING PHYSICIAN Nurse Practitioner Family; FAMILY PHYSICIAN Family Medicine | DX: Z87.01 Personal history of pneumonia (recurrent) (principal) | CPT/HCPCS: 71046 ==

== ENCOUNTER → 2024-01-05 08:04 | Outpatient (REF) | payer MEDICARE, OTHER, SELFPAY ==
[2024-01-05 09:51] LABS: Blood Urea Nitrogen 19 mg/dl (9-20); Calcium 10.3 mg/dl (8.4-10.2); Carbon Dioxide 25 mmol/L (22-30); Chloride 105 mmol/L (98-107); Glucose 100 mg/dl (70-99); Potassium 4.4 mmol/L (3.5-5.1); Sodium 142 mmol/L (135-145); eGFR > 60.00
[2024-01-05 10:17] LABS: % Basophils 0.7 % (0-2); % Eosinophils 3.7 % (0-6); % Immature Granulocytes 0.3 % (0-0.5); % Lymphocytes 49.3 % (20.5-51.1); % Monocytes 9.8 % (1.7-9.3); % Neutrophils 36.2 % (42.2-75.2); Absolute Basophils 0.1 10^3/uL (0-0.2); Absolute Eosinophils 0.3 10^3/uL (0-0.7); Absolute Lymphocytes 3.3 10^3/uL (1.2-3.4); Absolute Monocytes 0.7 10^3/uL (0.1-0.6); Absolute Neutrophils 2.4 10^3/uL (1.4-6.5); Hemoglobin 12.2 g/dL (13.0-18.0); Mean Corp Hgb Conc. 34.9 g/dL (33.0-37.0); Mean Corpuscular Hgb 32.2 pg (27.0-31.0); Mean Corpuscular Volume 92.3 fL (80.0-94.0); Mean Platelet Volume 9.7 fL (7.4-10.4); Nucleated Red Blood Cells % 0 % (-); Platelet Count 345 10^3/uL (130-400); Red Blood Cell Count 3.79 10^6/uL (4.70-6.10); Red Cell Dist. Width 12.8 % (11.5-14.5); White Blood Cell Count 6.7 10^3/uL (4.8-10.8)
[2024-01-05 10:19] LABS: PSA, Total - Diagnostic 9.69 ng/ml (0.0-4.0)
== END ==
LOC: HWLAB 08:04
PROVIDERS: ATTENDING PHYSICIAN Internal Medicine Hematology & Oncology; FAMILY PHYSICIAN Family Medicine
DX: C61 Malignant neoplasm of prostate (principal); C79.51 Secondary malignant neoplasm of bone; G89.3 Neoplasm related pain (acute) (chronic)
CPT/HCPCS: 36415; 80048; 84153; 85025

== ENCOUNTER → 2024-01-19 13:46 | Outpatient (REF) | payer MEDICARE, OTHER, SELFPAY ==
[2024-01-19 15:56] LABS: % Basophils 0.6 % (0-2); % Immature Granulocytes 0.3 % (0-0.5); % Lymphocytes 39.4 % (20.5-51.1); % Monocytes 11.1 % (1.7-9.3); % Neutrophils 46.6 % (42.2-75.2); Absolute Basophils 0.1 10^3/uL (0-0.2); Absolute Eosinophils 0.2 10^3/uL (0-0.7); Absolute Lymphocytes 4.2 10^3/uL (1.2-3.4); Absolute Monocytes 1.2 10^3/uL (0.1-0.6); Hematocrit 37.1 % (39.0-52.0); Hemoglobin 12.6 g/dL (13.0-18.0); Mean Corpuscular Hgb 32.8 pg (27.0-31.0); Mean Corpuscular Volume 96.6 fL (80.0-94.0); Nucleated Red Blood Cells % 0 % (-); Platelet Count 359 10^3/uL (130-400); Red Blood Cell Count 3.84 10^6/uL (4.70-6.10); Red Cell Dist. Width 12.6 % (11.5-14.5); White Blood Cell Count 10.7 10^3/uL (4.8-10.8)
[2024-01-19 16:11] LABS: Blood Urea Nitrogen 28 mg/dl (9-20); Calcium 10.1 mg/dl (8.4-10.2); Carbon Dioxide 25 mmol/L (22-30); Chloride 99 mmol/L (98-107); Glucose 77 mg/dl (70-99); Potassium 4.7 mmol/L (3.5-5.1); Sodium 139 mmol/L (135-145); eGFR > 60.00
== END ==
LOC: HWLAB 13:46
PROVIDERS: ATTENDING PHYSICIAN Internal Medicine Hematology & Oncology; FAMILY PHYSICIAN Family Medicine
DX: C61 Malignant neoplasm of prostate (principal); C79.51 Secondary malignant neoplasm of bone; G89.3 Neoplasm related pain (acute) (chronic)
CPT/HCPCS: 36415; 80048; 84153; 85025

== ENCOUNTER → 2024-02-01 08:59 | Outpatient (REF) | payer MEDICARE, OTHER, SELFPAY ==
[2024-02-01 12:25] LABS: % Basophils 0.4 % (0-2); % Eosinophils 1.6 % (0-6); % Immature Granulocytes 0.1 % (0-0.5); % Monocytes 5.7 % (1.7-9.3); % Neutrophils 55.2 % (42.2-75.2); Absolute Eosinophils 0.1 10^3/uL (0-0.7); Absolute Lymphocytes 2.7 10^3/uL (1.2-3.4); Absolute Monocytes 0.4 10^3/uL (0.1-0.6); Absolute Neutrophils 4.1 10^3/uL (1.4-6.5); Hematocrit 36.8 % (39.0-52.0); Hemoglobin 12.9 g/dL (13.0-18.0); Mean Corp Hgb Conc. 35.1 g/dL (33.0-37.0); Mean Corpuscular Hgb 33.2 pg (27.0-31.0); Mean Corpuscular Volume 94.8 fL (80.0-94.0); Mean Platelet Volume 9.8 fL (7.4-10.4); Nucleated Red Blood Cells % 0 % (-); Platelet Count 313 10^3/uL (130-400); Red Blood Cell Count 3.88 10^6/uL (4.70-6.10); Red Cell Dist. Width 12.6 % (11.5-14.5); White Blood Cell Count 7.4 10^3/uL (4.8-10.8)
[2024-02-01 12:34] LABS: Blood Urea Nitrogen 16 mg/dl (9-20); Calcium 9.9 mg/dl (8.4-10.2); Carbon Dioxide 25 mmol/L (22-30); Chloride 103 mmol/L (98-107); Glucose 156 mg/dl (70-99); Potassium 3.9 mmol/L (3.5-5.1); Sodium 141 mmol/L (135-145); eGFR > 60.00
== END ==
LOC: HWLAB 08:59
PROVIDERS: ATTENDING PHYSICIAN Internal Medicine Hematology & Oncology; FAMILY PHYSICIAN Family Medicine
DX: C61 Malignant neoplasm of prostate (principal); C79.51 Secondary malignant neoplasm of bone; G89.3 Neoplasm related pain (acute) (chronic)
CPT/HCPCS: 36415; 80048; 84153; 85025

== ENCOUNTER → 2024-02-11 07:49 | Outpatient (REF) | payer MEDICARE, OTHER, SELFPAY | LOC: PAVMRI 07:49 | PROVIDERS: ATTENDING PHYSICIAN Internal Medicine Hematology & Oncology; FAMILY PHYSICIAN Family Medicine | DX: C61 Malignant neoplasm of prostate (principal); C79.51 Secondary malignant neoplasm of bone; G89.3 Neoplasm related pain (acute) (chronic); R97.21 Rising PSA following treatment for malignant neoplasm of prostate | CPT/HCPCS: 72158; A9575 ==

== ENCOUNTER → 2024-02-16 13:32 | Outpatient (REF) | payer MEDICARE, OTHER, SELFPAY ==
[2024-02-16 15:51] LABS: % Basophils 0.6 % (0-2); % Eosinophils 3.1 % (0-6); % Immature Granulocytes 0.2 % (0-0.5); % Lymphocytes 39.6 % (20.5-51.1); % Monocytes 10.3 % (1.7-9.3); % Neutrophils 46.2 % (42.2-75.2); Absolute Basophils 0.1 10^3/uL (0-0.2); Absolute Eosinophils 0.3 10^3/uL (0-0.7); Absolute Lymphocytes 3.3 10^3/uL (1.2-3.4); Absolute Monocytes 0.9 10^3/uL (0.1-0.6); Absolute Neutrophils 3.8 10^3/uL (1.4-6.5); Hematocrit 37.7 % (39.0-52.0); Mean Corp Hgb Conc. 34.5 g/dL (33.0-37.0); Mean Corpuscular Hgb 32.7 pg (27.0-31.0); Mean Platelet Volume 9.9 fL (7.4-10.4); Nucleated Red Blood Cells % 0 % (-); Platelet Count 297 10^3/uL (130-400); Red Blood Cell Count 3.97 10^6/uL (4.70-6.10); Red Cell Dist. Width 12.7 % (11.5-14.5); White Blood Cell Count 8.3 10^3/uL (4.8-10.8)
[2024-02-16 16:13] LABS: Blood Urea Nitrogen 21 mg/dl (9-20); Calcium 10.1 mg/dl (8.4-10.2); Carbon Dioxide 29 mmol/L (22-30); Chloride 98 mmol/L (98-107); Glucose 75 mg/dl (70-99); Potassium 4.5 mmol/L (3.5-5.1); Sodium 136 mmol/L (135-145); eGFR > 60.00
== END ==
LOC: HWLAB 13:32
PROVIDERS: ATTENDING PHYSICIAN Internal Medicine Hematology & Oncology; FAMILY PHYSICIAN Family Medicine
DX: C61 Malignant neoplasm of prostate (principal); C79.51 Secondary malignant neoplasm of bone; G89.3 Neoplasm related pain (acute) (chronic)
CPT/HCPCS: 36415; 80048; 84153; 85025

== ENCOUNTER 2024-02-26 12:07 | Emergency (ER) | payer MEDICARE, OTHER, SELFPAY ==
[2024-02-26 12:08] VITALS: BP 140/73
[2024-02-26 13:35] VITALS: BMI 30.2
--- NOTE | 2024-02-26 13:55 | ED.GENMED ---
History of Present Illness
<Leonie Dimas PA-C - Last Filed: 02/26/24 18:46>
General
Chief Complaint: Abdominal Pain
Source: patient
Exam Limitations: none
Time Seen by Provider: 02/26/24 13:21
Nursing documentation reviewed up to this point in time: agreed with
History of Present Illness
History of Present Illness:
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 Patient reports
that he started a new oral chemotherapy drug, Xtandi, 2 days ago and developed lower abdominal pain that day. He states pain has persisted, yet worsened since onset. He describes it as a constant aching pain throughout his lower abdomen. Patient
denies any fevers or chills. He has had a few episodes of vomiting over the past few days. His last bowel movement was 2 days ago. Patient denies any urinary symptoms.
Patient does take tramadol 50 mg every 6 hours for cancer related pain.
Patient did speak with his oncologist today, Dr. Pearson who recommended that patient be seen in the emergency department as they are unsure this abdominal pain may be secondary to new medication, progression of disease, but to rule out a possible
bowel obstruction. No history of prior abdominal surgeries.
Past History
<Leonie Dimas PA-C - Last Filed: 02/26/24 18:46>
Past History
ED Past Medical History: CAD, HTN and Other (Myotonic dystrophy)
ED Past Surgical History: Cardiac (cabg x 3, stents x 2)
Social History
Tobacco: Non-smoker
Alcohol: None
Drug: None
Personal:
Living: with family
Review of Systems
<Leonie Dimas PA-C - Last Filed: 02/26/24 18:46>
Review of Systems
Allergies reviewed?: Yes
All Other Systems: ROS reviewed and negative except as documented in HPI and ROS
Phy Exam
<Leonie Dimas PA-C - Last Filed: 02/26/24 18:46>
Physical Exam
Physical Exam:
Vitals: Patient's vital signs are stable. Afebrile
General: Patient is well appearing, no acute distress
Skin: Warm and dry, no rashes or lesions
Head: Normocephalic, atraumatic
Eyes: Sclera nonicteric. EOMs intact. No nystagmus.
Throat: Protecting airway
Neck: Normal ROM, no cervical spine tenderness, no meningismus
Cardiac: Regular rate and rhythm, no murmurs.
Pulm: Normal respiratory effort, no wheezes, rales, rhonchi heard on exam.
Abdomen: Abdomen soft. Mild diffuse abdominal tenderness. No rebound tenderness or guarding. No CVA tenderness
Extremities: No evidence of cyanosis or edema
Neuro: AAOx3. No focal neurologic deficits.
Psychiatric: Normal affect.
Course
<Leonie Dimas PA-C - Last Filed: 02/26/24 18:46>
Orders/Labs/Results
Orders:
Orders
02/26/24 13:35
IV Insert/Care/Rem.- Treatment PRN
02/26/24 13:37
Complete Blood Count/With Diff Urgent
Comprehensive Metabolic Panel Urgent
Lipase Urgent
02/26/24 13:53
0.9% Sodium Chloride 500 ml [Nss] 500 ml IV BOLUS
Iohexol [Omnipaque] See Protocol PO NOW STA
Morphine Sulfate 4 mg IV NOW STA
02/26/24 13:54
CT Abd/pel W Iv And Oral Contr Urgent
Comment: metastatic prostate cancer w/ mets to spine
Reason For Exam: Diffuse abdominal pain
02/26/24 14:07
Urinalysis Reflex To Culture Urgent
Date Specimen was Collected: 02/26/24
Time Specimen was Collected: 14:04
Urine Microscopic Reflex Cult Urgent
02/26/24 15:56
Morphine Sulfate 2 mg IV NOW STA
02/26/24 17:33
Lactulose [Duphalac/Chronulac] 30 grams PO NOW STA
02/26/24 17:59
Ondansetron Injectable [Zofran] 4 mg IV NOW STA
02/26/24 18:00
Ondansetron Injectable [Zofran] 4 mg .ROUTE .STK-MED ONE
Abnormal Lab Results
02/26/24 02/26/24
13:37 14:07
WBC 11.6 H 10^3/uL
(4.8-10.8)
RBC 4.02 L 10^6/uL
(4.70-6.10)
Hgb 12.6 L g/dL
(13.0-18.0)
Hct 36.4 L %
(39.0-52.0)
MCH 31.1 H pg
(27.0-31.0)
MPV 10.9 H fL
(7.4-10.4)
Abs Immat Gran (auto) 0.1 H 10^3/uL
(0-0.05)
Absolute Neuts (auto) 8.5 H 10^3/uL
(1.4-6.5)
Absolute Monos (auto) 0.9 H 10^3/uL
(0.1-0.6)
Lymphocytes % 18.5 L %
(20.5-51.1)
BUN 25 H mg/dl
(9-20)
Creatinine 0.6 L mg/dL
(0.7-1.3)
Ur Occult Blood Reflex 4+ A
(Negative)
Urine RBC 11-15 A /HPF
(0-2)
Urine Bacteria (Reflex) Few A
(Negative)
02/26/24 13:37
02/26/24 13:37
Vital Signs
Initial and Last Documented VS:
Initial Vital Signs
Temp Pulse Resp BP Pulse Ox
98.0 F 74 16 140/73 98
02/26/24 12:08 02/26/24 12:08 02/26/24 12:08 02/26/24 12:08 02/26/24 12:08
Last Documented Vital Signs
Temp Pulse Resp BP Pulse Ox
98.0 F 74 16 147/76 93
02/26/24 12:08 02/26/24 12:08 02/26/24 12:08 02/26/24 16:00 02/26/24 16:25
<Alexey Balderas, DO - Last Filed: 02/26/24 14:43>
Orders/Labs/Results
Orders:
Orders
02/26/24 13:35
IV Insert/Care/Rem.- Treatment PRN
02/26/24 13:37
Complete Blood Count/With Diff Urgent
Comprehensive Metabolic Panel Urgent
Lipase Urgent
02/26/24 13:53
0.9% Sodium Chloride 500 ml [Nss] 500 ml IV BOLUS
Iohexol [Omnipaque] See Protocol PO NOW STA
Morphine Sulfate 4 mg IV NOW STA
02/26/24 13:54
CT Abd/pel W Iv And Oral Contr Urgent
Comment: metastatic prostate cancer w/ mets to spine
Reason For Exam: Diffuse abdominal pain
02/26/24 14:07
Urinalysis Reflex To Culture Urgent
Date Specimen was Collected: 02/26/24
Time Specimen was Collected: 14:04
Urine Microscopic Reflex Cult Urgent
02/26/24 15:56
Morphine Sulfate 2 mg IV NOW STA
02/26/24 17:33
Lactulose [Duphalac/Chronulac] 30 grams PO NOW STA
02/26/24 17:59
Ondansetron Injectable [Zofran] 4 mg IV NOW STA
02/26/24 18:00
Ondansetron Injectable [Zofran] 4 mg .ROUTE .STK-MED ONE
Abnormal Lab Results
02/26/24 02/26/24
13:37 14:07
WBC 11.6 H 10^3/uL
(4.8-10.8)
RBC 4.02 L 10^6/uL
(4.70-6.10)
Hgb 12.6 L g/dL
(13.0-18.0)
Hct 36.4 L %
(39.0-52.0)
MCH 31.1 H pg
(27.0-31.0)
MPV 10.9 H fL
(7.4-10.4)
Abs Immat Gran (auto) 0.1 H 10^3/uL
(0-0.05)
Absolute Neuts (auto) 8.5 H 10^3/uL
(1.4-6.5)
Absolute Monos (auto) 0.9 H 10^3/uL
(0.1-0.6)
Lymphocytes % 18.5 L %
(20.5-51.1)
BUN 25 H mg/dl
(9-20)
Creatinine 0.6 L mg/dL
(0.7-1.3)
Ur Occult Blood Reflex 4+ A
(Negative)
Urine RBC 11-15 A /HPF
(0-2)
Urine Bacteria (Reflex) Few A
(Negative)
02/26/24 13:37
02/26/24 13:37
Vital Signs
Initial and Last Documented VS:
Initial Vital Signs
Temp Pulse Resp BP Pulse Ox
98.0 F 74 16 140/73 98
02/26/24 12:08 02/26/24 12:08 02/26/24 12:08 02/26/24 12:08 02/26/24 12:08
Last Documented Vital Signs
Temp Pulse Resp BP Pulse Ox
98.0 F 74 16 147/76 93
02/26/24 12:08 02/26/24 12:08 02/26/24 12:08 02/26/24 16:00 02/26/24 16:25
<Leonie Dimas PA-C - Last Filed: 02/26/24 18:46>
MDM/Problems Addressed
Differential Diagnosis Includes:
Not limited to: Medication side effect, constipation, bowel obstruction, diverticulitis, appendicitis, cholecystitis, etc.
MDM/Problems Addressed:
78-year-old male with history of metastatic prostate cancer presents to the emergency department for a few days of generalized abdominal pain. Did recently start new p.o. chemotherapy. Has not had a bowel movement in 2 days. He has had few
episodes of vomiting although denies any current nausea. No fevers or chills. No urinary symptoms. Patient sent by oncologist to rule out possible obstruction vs progression of disease vs other. Patient mildly hypertensive on arrival to
emergency department, otherwise vital signs stable. He is afebrile. Physical exam as above. Will obtain basic labs. Will check urine. Will obtain CT abdomen/pelvis with p.o./IV contrast for further evaluation. Patient given IV fluids, morphine.
Labs noted. No clinically significant abnormalities. Urine does show RBCs, no evidence of infection. CT report reviewed. There is mild progression of tumor around prostate gland causing mild obstruction of distal right ureter. No evidence of
bowel obstruction. Did discuss CT report with attending physician. Unknown if progressing tumor contributing to patient's symptoms. Although�on my own read of CT exam it does appear to be a significant amount of stool in the ascending colon.
Constipation likely contributing to patient's pain. Patient's new chemotherapy does have known side effect of constipation. Lower suspicion for acute infectious pathology given patient is afebrile, well-appearing, with no infectious evidence on CT
exam. Did discuss this with patient's oncologist, Dr. Pearson. Patient was given a dose of lactulose in the emergency department. Patient wanted to leave prior to having bowel movement. Advised to continue medications prescribed. He can trial
magnesium citrate at home if no bowel movement in a day or 2. Strict return precautions discussed with patient. He will follow with oncology, primary care. Patient comfortable with plan. All questions answered. Patient well-appearing, stable
upon discharge
Chronic conditions affecting care:
Metastatic prostate cancer with mets to bone
Acute Exacerbation and/or Progression of Chronic Illness:
N/A
<Leonie Dimas PA-C - Last Filed: 02/26/24 18:46>
*Radiology
Radiology exam reviewed: preliminary read by ED provider and radiology read reviewed
*Pulse Oximetry
Patient hypoxic: no
*EKG
Interpreted by ED Provider?: NA
*Chief Nurse Interpretation
Rate: Chief Nurse- N/A
*Critical Care Note
Total Time (30-74mins, 75-104mins- exclusive of procedures): Not Applicable
<Leonie Dimas PA-C - Last Filed: 02/26/24 18:46>
Patient Management
Discussion with other providers: Diamond Grader (Oncology - Dr. Pearson)
ED Attending Note
<Leonie Dimas PA-C - Last Filed: 02/26/24 18:46>
-
Portions of this chart may have been created with voice recognition software.� Occasional wrong word or��sound alike� substitutions may have occurred due to the inherent limitations of voice recognition software.
<Alexey Balderas DO - Last Filed: 02/26/24 14:43>
ED Attending Note
Patient seen and examined by attending physician: Yes
I performed the substantive portion of visit, reviewed & personally made and approve the management plan that is documented in note by myself or CHERI.: Yes
ED Attending Note:
Seen with PA examined independently 78-year-old male presents with constipation metastatic prostate cancer to [facility] referred in by his oncologist to rule out obstruction had a bowel movement 2 days ago which was incomplete, nontoxic-appearing,
clinically labs CT scan
Discharge Plan
Departure
Patient Disposition: Home (Routine Discharge)
Date of Disposition: 02/26/24
Time of Disposition: 17:56
Patient with high blood pressure during this ER visit?: Yes
Condition: Good
Discharge Problem:
Abdominal pain, Constipation
Instructions: Constipation, Adult (DC), Abdominal Pain, BLOOD PRESSURE
Prescriptions:
No Action
aspirin 81 MG tablet,delayed release (DR/EC)
81 mg PO DAILY
[id number]-ast [MegaRed [place]-3 Krill Oil] 1,000-230-60 mg Capsule
1 cap PO DAILY
atorvastatin 40 mg tablet
40 mg PO DAILY
lisinopril 5 mg Tablet
5 mg PO DAILY
tamsulosin 0.4 mg Capsule
0.4 mg PO BID Qty: 60 0RF
docusate sodium 100 mg Capsule
100 mg PO BID Qty: 60 0RF
calcium carbonate [Calcium 600] 600 mg calcium (1,500 mg) Tablet
600 mg PO DAILY
ascorbic acid (vitamin C) [Vitamin C] 500 mg Tablet
500 mg PO DAILY
magnesium citrate Solution
300 ml PO DAILYPRN PRN (Reason: constipation)
cholecalciferol (vitamin D3) [Vitamin D3] 10 mcg (400 unit) Tablet
10 mcg PO DAILY
pyridoxine (vitamin B6) 500 mg Tablet
500 mg PO DAILY
folic acid 0.8 mg Capsule
0.8 mg PO DAILY
Orgovyx 120 mg Tablet
120 mg PO DAILY
cefdinir 300 mg capsule
300 mg PO BID 5 Days Qty: 10 0RF
doxycycline hyclate 100 mg capsule
100 mg PO BID Qty: 10 0RF
hydrocortisone acetate [Anusol-HC] 25 mg suppository
25 mg [place] HS Qty: 12 0RF
Rx Instructions:
DONT USE MORE THEN 5 NIGHTS IN A ROW
Preparation H 0.25-14-74.9 % ointment
1 applic [place] [facility] PRN (Reason: hemorrhoids) Qty: 57 0RF
Referrals:
Denise Grant MD [Active] - Follow up in 2-3 days
Linda Ng DO [Family Provider] -
Activity Restrictions/Additional Instructions:
RETURN TO THE EMERGENCY DEPARTMENT WITH FEVERS, WORSENING ABDOMINAL PAIN, INTRACTABLE NAUSEA/VOMITING, INABILITY TO URINATE, WORSENING IN CURRENT SYMPTOMS, OR ANY OTHER CONCERS
-As discussed�your CT scan in the emergency department did not show any evidence of a bowel obstruction today.
-It is possible that some of your symptoms are related to your constipation. You were given a dose of lactulose in the emergency department. If you do not have a bowel movement in a day or so you can try magnesium citrate at home which you can buy
[id number].
-Continue to take your medications as prescribed. You should follow a high-fiber diet. Stay very well-hydrated.
-Follow-up with your oncologist/primary care for further evaluation/management
Monitor your symptoms closely return to the emergency department with any acute worsening/new symptoms.
Interventions
Interventions:
*Risk Screen - Suicide Last Done: 02/26/24 12:08
*General Assessment Last Done: 02/26/24 13:36
*Neglect/Abuse Screening Last Done: 02/26/24 12:08
ED- Fall Risk Assessment Last Done: 02/26/24 13:45
*ED COVID-19 Vaccine History Last Done: 02/26/24 13:36
RE-Dsihjm-Eblyornyuu Assessment Last Done: 02/26/24 13:45
Discharge Date and Time
Print Language: GERMAN
[2024-02-26 13:56] LABS: ALT (SGPT) 22 U/L (0-50); AST (SGOT) 52 U/L (17-59); Alkaline Phosphatase 47 U/L (38-126); Blood Urea Nitrogen 25 mg/dl (9-20); Calcium 10.1 mg/dl (8.4-10.2); Carbon Dioxide 26 mmol/L (22-30); Chloride 103 mmol/L (98-107); Estimated Creatinine Clearance 100 ml/min; Glucose 99 mg/dl (70-99); Lipase 37 U/L (23-300); Sodium 138 mmol/L (135-145); Total Bilirubin 1.2 mg/dl (0.2-1.3); Total Protein 6.5 g/dl (6.3-8.2); eGFR > 60.00
[2024-02-26] MEDS: MORPHINE SULFATE 4 MG IV (13:57)
[2024-02-26] MEDS: OMNIPAQUE 50 ML PO (13:58)
[2024-02-26] MEDS: NSS 500 IV (13:59)
[2024-02-26 14:16] LABS: Urine Albumin Negative (Neg - Trace); Urine Bilirubin Negative (Negative); Urine Character Clear (Clear); Urine Color Yellow; Urine Glucose Negative (Negative); Urine Ketone Negative (Negative); Urine Leukocyte Negative (Negative); Urine Nitrite Negative (Negative); Urine Occult Blood 4+ (Negative); Urine Urobilinogen Negative (Neg - 1+)
[2024-02-26 14:21] LABS: Urine Bacteria Few (Negative); Urine Mucus Few; Urine Squamous Cell 0-2 /LPF (Few); Urine White Cell 0-2 /HPF (0-5)
[2024-02-26 14:37] LABS: % Basophils 0.2 % (0-2); % Eosinophils 0.2 % (0-6); % Immature Granulocytes 0.4 % (0-0.5); % Lymphocytes 18.5 % (20.5-51.1); % Neutrophils 72.9 % (42.2-75.2); Absolute Immature Granulocytes 0.1 10^3/uL (0-0.05); Absolute Lymphocytes 2.2 10^3/uL (1.2-3.4); Absolute Monocytes 0.9 10^3/uL (0.1-0.6); Absolute Neutrophils 8.5 10^3/uL (1.4-6.5); Hematocrit 36.4 % (39.0-52.0); Hemoglobin 12.6 g/dL (13.0-18.0); Mean Corp Hgb Conc. 33.9 g/dL (33.0-37.0); Mean Corpuscular Hgb 31.1 pg (27.0-31.0); Mean Corpuscular Volume 91.8 fL (80.0-94.0); Mean Platelet Volume 10.9 fL (7.4-10.4); Nucleated Red Blood Cells % 0 % (-); Platelet Count 297 10^3/uL (130-400); Red Blood Cell Count 4.02 10^6/uL (4.70-6.10); Red Cell Dist. Width 13.1 % (11.5-14.5); White Blood Cell Count 11.6 10^3/uL (4.8-10.8)
[2024-02-26 15:00] VITALS: BP 141/79
[2024-02-26 16:00] VITALS: BP 147/76
[2024-02-26] MEDS: MORPHINE SULFATE 2 MG IV (16:19)
[2024-02-26] MEDS: DUPHALAC/CHRONULAC 30 GRAMS PO (17:47)
[2024-02-26] MEDS: ZOFRAN 4 MG IV (18:00)
== END 2024-02-26 19:08 | disposition home or self-care (01) ==
LOC: EMR 12:07
PROVIDERS: Physician Assistant; EMERGENCY PHYSICIAN Emergency Medicine; FAMILY PHYSICIAN Family Medicine
DX: K59.00 Constipation, unspecified (principal); R10.30 Lower abdominal pain, unspecified; R11.10 Vomiting, unspecified; C61 Malignant neoplasm of prostate; C79.51 Secondary malignant neoplasm of bone; I25.10 Atherosclerotic heart disease of native coronary artery without angina pectoris; E78.5 Hyperlipidemia, unspecified; G89.3 Neoplasm related pain (acute) (chronic); I10 Essential (primary) hypertension; G71.11 Myotonic muscular dystrophy; Z79.82 Long term (current) use of aspirin; Z95.1 Presence of aortocoronary bypass graft; Z95.5 Presence of coronary angioplasty implant and graft; Z88.8 Allergy status to other drugs, medicaments and biological substances
CPT/HCPCS: 99285; 96375; 96361; 96374; 96376; 74177; 80053; 81003; 81015; 83690; 85025; Q9967

== ENCOUNTER → 2024-03-15 08:36 | Outpatient (REF) | payer MEDICARE, OTHER, SELFPAY ==
[2024-03-15 12:14] LABS: % Basophils 0.5 % (0-2); % Eosinophils 2.5 % (0-6); % Immature Granulocytes 0.9 % (0-0.5); % Lymphocytes 17.1 % (20.5-51.1); % Monocytes 8.8 % (1.7-9.3); % Neutrophils 70.2 % (42.2-75.2); Absolute Basophils 0.1 10^3/uL (0-0.2); Absolute Eosinophils 0.3 10^3/uL (0-0.7); Absolute Immature Granulocytes 0.1 10^3/uL (0-0.05); Absolute Lymphocytes 1.9 10^3/uL (1.2-3.4); Absolute Neutrophils 7.9 10^3/uL (1.4-6.5); Hematocrit 35.4 % (39.0-52.0); Hemoglobin 12.1 g/dL (13.0-18.0); Mean Corp Hgb Conc. 34.2 g/dL (33.0-37.0); Mean Corpuscular Hgb 32.2 pg (27.0-31.0); Mean Corpuscular Volume 94.1 fL (80.0-94.0); Mean Platelet Volume 9.4 fL (7.4-10.4); Nucleated Red Blood Cells % 0 % (-); Platelet Count 362 10^3/uL (130-400); Red Blood Cell Count 3.76 10^6/uL (4.70-6.10); Red Cell Dist. Width 13.4 % (11.5-14.5); White Blood Cell Count 11.2 10^3/uL (4.8-10.8)
[2024-03-15 12:54] LABS: Blood Urea Nitrogen 43 mg/dl (9-20); Calcium 9.7 mg/dl (8.4-10.2); Carbon Dioxide 25 mmol/L (22-30); Chloride 104 mmol/L (98-107); Glucose 100 mg/dl (70-99); Potassium 4.3 mmol/L (3.5-5.1); Sodium 139 mmol/L (135-145); eGFR > 60.00
== END ==
LOC: HWLAB 08:36
PROVIDERS: ATTENDING PHYSICIAN Internal Medicine Hematology & Oncology; FAMILY PHYSICIAN Family Medicine
DX: C61 Malignant neoplasm of prostate (principal); C79.51 Secondary malignant neoplasm of bone; G89.3 Neoplasm related pain (acute) (chronic)
CPT/HCPCS: 36415; 80048; 84153; 85025

== ENCOUNTER 2024-04-03 12:03 | Inpatient (IN) | payer MEDICARE, OTHER, SELFPAY ==
[2024-04-03] VITALS (10 sets, daily range): BP systolic 94–148; BP diastolic 51–86; BMI 29.1
--- NOTE | 2024-04-03 08:06 | ED.GENMED ---
History of Present Illness
General
Chief Complaint: Breathing Problem
Time Seen by Provider: 04/03/24 08:06
History of Present Illness
History of Present Illness:
TIME OF INITIAL ENCOUNTER:
HPI: The patient presents due to shortness of breath and low oxygen readings at home. He states that his room air sats at rest were around 88% and with exertion were in the low 80%'s. When he was discharged this past October, he was on oxygen but has
not been using it more recently because his more recent sats have been in the mid to high 90% without the aid of oxygen. He appears to have prominence of the lower extremities however he states this is normal size for him and reports no new swelling.
EXAM:
GENERAL: The patient appears somewhat generally weak however he is able to lean forward without on the stretcher, room air sats are 88 to 89% (his meter showed 90%) on room air
HEENT: Moist oral mucosa
CARDIOVASCULAR: No murmurs, normal heart rate, regular rhythm, No chest wall tenderness
PULMONARY: No respiratory distress, some faint rales at the bases
ABDOMEN: Soft with no peritoneal signs, no tenderness
NEUROLOGIC: Good/fair equal strength all extremities, no coordination deficits
PSYCHIATRIC: Appropriate mental status, normal insight and judgement
EXTREMITIES: Nontender, soft tissue prominence of the distal lower extremities, moves all extremities equally
SKIN: No rash, no lesions
NUMBER AND COMPLEXITY OF PROBLEMS ADDRESSED AT THE ENCOUNTER
� Chronic conditions affecting care: Muscular dystrophy, has had pneumonia, CAD, high blood pressure
� Acute Exacerbation and/or Progression of Chronic Illness: This is an acute problem
� Differential Diagnosis includes: Progression of respiratory insufficiency related to muscular dystrophy, pneumonia, deconditioned state, CHF, progression of metastatic prostate
AMOUNT AND/OR COMPLEXITY OF DATA TO BE REVIEWED AND ANALYZED
� I performed an independent evaluation of and my interpretation is:
EKG: Sinus 93, right bundle branch block with associated ST abnormality, inferior Q waves
CT: CTA shows bilateral opacities with extensive differential per radiologist
X-rays: Chest x-ray unremarkable
Laboratory Studies: White count 4.5, hemoglobin 11.7, troponin 0.022, BNP 667
Other:
� Review of other/old records: The patient was admitted here in October 2023. At that time was diagnosed with community-acquired pneumonia. He was discharged on home oxygen at that time as well as cefdinir and doxycycline.
� Clinical information was obtained by an independent historian: I spoke to son and at bedside
� Prescriptions/Medications Considered but not given:
� Further testing considered but not performed:
RISK OF COMPLICATIONS AND/OR MORBIDITY OR MORTALITY OF PATIENT MANAGEMENT
� Social determinants of health affecting care: Lives at home, no longer requires oxygen
� Discussion with other providers: Hospitalist for admission, Dr. Knox
� Escalation of care including admission/observation vs risk of discharge considered: No evidence for PE based on CT imaging. However CT does show groundglass opacities of uncertain significance. However he is hypoxic. Will
try antibiotics and recommend he stay in the hospital as he has worsening room air sats.
ANY OTHER UPDATES:
Past History
Past History
ED Past Medical History: CAD, HTN and Other (Myotonic dystrophy)
ED Past Surgical History: Cardiac (cabg x 3, stents x 2)
Social History
Tobacco: Non-smoker
Alcohol: None
Drug: None
Personal:
Living: with family
Phy Exam
Physical Exam
Physical Exam:
See HPI
Scores
Heart Failure Risk
Heart Failure Risk Score: Not Applicable
Course
Orders/Labs/Results
Orders:
Orders
04/03/24 08:08
CR Chest - 2 Views Urgent
Comment:
Reason For Exam: sob
04/03/24 08:17
Ipratropium/Albuterol Sulfate [Duoneb] 3 ml INH R NOW ONE
04/03/24 08:42
Basic Metabolic Panel Urgent
Complete Blood Count/With Diff Urgent
NT-proBNP Urgent
Troponin I Urgent
04/03/24 08:57
CT Chest Pe Study Urgent
Comment:
Reason For Exam: hypoxia
04/03/24 10:39
Azithromycin 500 mg/250 ml [Zithromax Infusion] 500 mg in 250 ml IV NOW
CefTRIAXone [Rocephin] 1,000 mg IV NOW STA
04/03/24 10:42
Electrocardiogram (*1) Urgent
Reason for Study: Shortness of Breath
EKG- Treatment ONCE
04/03/24 11:21
COVID-19 Antigen Stat
Source: Nasal Swab
Procalcitonin Stat
PCT Algorithmm Indication: Respiratory
Influenza A+B Rapid Molecular Stat
KORIN Source: Nasal Swab
Specimen Description:
Abnormal Lab Results
04/03/24
08:42
WBC 4.5 L 10^3/uL
(4.8-10.8)
RBC 3.61 L 10^6/uL
(4.70-6.10)
Hgb 11.7 L g/dL
(13.0-18.0)
Hct 34.1 L %
(39.0-52.0)
MCV 94.5 H fL
(80.0-94.0)
MCH 32.4 H pg
(27.0-31.0)
Absolute Lymphs (auto) 1.0 L 10^3/uL
(1.2-3.4)
Immature Gran % 0.7 H %
(0-0.5)
Monocytes % 10.8 H %
(1.7-9.3)
BUN 22 H mg/dl
(9-20)
Creatinine 0.6 L mg/dL
(0.7-1.3)
Glucose 112 H mg/dl
(70-99)
04/03/24 08:42
04/03/24 08:42
Vital Signs
Initial and Last Documented VS:
Initial Vital Signs
Temp Pulse Resp BP Pulse Ox
36.6 C 101 18 112/80 92
04/03/24 07:58 04/03/24 07:58 04/03/24 07:58 04/03/24 07:58 04/03/24 07:58
Last Documented Vital Signs
Temp Pulse Resp BP Pulse Ox
36.6 C 91 16 127/70 95
04/03/24 07:58 04/03/24 09:00 04/03/24 09:00 04/03/24 09:00 04/03/24 09:00
*Critical Care Note
Total Time (30-74mins, 75-104mins- exclusive of procedures): Not Applicable
ED Attending Note
-
Portions of this chart may have been created with voice recognition software.� Occasional wrong word or��sound alike� substitutions may have occurred due to the inherent limitations of voice recognition software.
Discharge Plan
Departure
Patient Disposition: Admit
Date of Disposition: 04/03/24
Time of Disposition: 11:28
Presentation/result/management discussed w/ accepting MD/DO: Hospitalist
Discharge Problem:
Shortness of breath
Prescriptions:
No Action
aspirin 81 MG tablet,delayed release (DR/EC)
81 mg PO DAILY
[id number]-ast [MegaRed [place]-3 Krill Oil] 1,000-230-60 mg Capsule
1 cap PO DAILY
atorvastatin 40 mg tablet
40 mg PO DAILY
lisinopril 5 mg Tablet
5 mg PO DAILY
tamsulosin 0.4 mg Capsule
0.4 mg PO BID Qty: 60 0RF
docusate sodium 100 mg Capsule
100 mg PO BID Qty: 60 0RF
calcium carbonate [Calcium 600] 600 mg calcium (1,500 mg) Tablet
600 mg PO DAILY
ascorbic acid (vitamin C) [Vitamin C] 500 mg Tablet
500 mg PO DAILY
magnesium citrate Solution
300 ml PO DAILYPRN PRN (Reason: constipation)
cholecalciferol (vitamin D3) [Vitamin D3] 10 mcg (400 unit) Tablet
10 mcg PO DAILY
pyridoxine (vitamin B6) 500 mg Tablet
500 mg PO DAILY
folic acid 0.8 mg Capsule
0.8 mg PO DAILY
Orgovyx 120 mg Tablet
120 mg PO DAILY
cefdinir 300 mg capsule
300 mg PO BID 5 Days Qty: 10 0RF
doxycycline hyclate 100 mg capsule
100 mg PO BID Qty: 10 0RF
hydrocortisone acetate [Anusol-HC] 25 mg suppository
25 mg [place] HS Qty: 12 0RF
Rx Instructions:
DONT USE MORE THEN 5 NIGHTS IN A ROW
Preparation H 0.25-14-74.9 % ointment
1 applic [place] [facility] PRN (Reason: hemorrhoids) Qty: 57 0RF
Referrals:
Linda Ng DO [Family Provider] -
Interventions
Interventions:
*Risk Screen - Suicide Last Done: 04/03/24 08:01
*General Assessment Last Done: 04/03/24 08:01
*Neglect/Abuse Screening Last Done: 04/03/24 08:01
Discharge Date and Time
Print Language: [place]
[2024-04-03] MEDS: DUONEB 3 ML INH ×3 (09:04→19:57)
[2024-04-03 09:14] LABS: % Basophils 0.9 % (0-2); % Eosinophils 4.9 % (0-6); % Immature Granulocytes 0.7 % (0-0.5); % Lymphocytes 21.4 % (20.5-51.1); % Monocytes 10.8 % (1.7-9.3); % Neutrophils 61.3 % (42.2-75.2); Absolute Eosinophils 0.2 10^3/uL (0-0.7); Absolute Monocytes 0.5 10^3/uL (0.1-0.6); Absolute Neutrophils 2.8 10^3/uL (1.4-6.5); Hematocrit 34.1 % (39.0-52.0); Hemoglobin 11.7 g/dL (13.0-18.0); Mean Corp Hgb Conc. 34.3 g/dL (33.0-37.0); Mean Corpuscular Hgb 32.4 pg (27.0-31.0); Mean Corpuscular Volume 94.5 fL (80.0-94.0); Nucleated Red Blood Cells % 0 % (-); Platelet Count 283 10^3/uL (130-400); Red Blood Cell Count 3.61 10^6/uL (4.70-6.10); Red Cell Dist. Width 13.8 % (11.5-14.5); White Blood Cell Count 4.5 10^3/uL (4.8-10.8)
[2024-04-03 09:23] LABS: Blood Urea Nitrogen 22 mg/dl (9-20); Calcium 9.6 mg/dl (8.4-10.2); Carbon Dioxide 26 mmol/L (22-30); Chloride 105 mmol/L (98-107); Glucose 112 mg/dl (70-99); Potassium 4.2 mmol/L (3.5-5.1); Sodium 141 mmol/L (135-145); eGFR > 60.00
[2024-04-03 09:34] LABS: NT-proBNP 667 pg/ml; Troponin I 0.022 ng/ml
[2024-04-03] MEDS: ZITHROMAX INFUSION 250 IV (11:20)
[2024-04-03] MEDS: ROCEPHIN 1000 MG IV (11:21)
--- NOTE | 2024-04-03 11:23 | HPS.HSE ---
Family Physician
-
Family Physician: Linda Ng
Chief Complaint
-
hypoxia
History of Present Illness
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 CT chest with
patchy groundglass opacities that were not seen on CT chest in November 2023. Patient reports that he started a new oral chemotherapy drug, Xtandi on 02/24/24 and stopped 1 week before admission due to worsened dyspnea. Patient is not clear in his
history, said that dyspnea was only for 1 week but Xtandi stopped same time, says that he was d/c on O2 in October, however son stated that he was not a candidate for O2.
Recent PET in Feb 17 - without lung involvement
Medical History
Past Medical History
Past Medical History: Reports Other
Additional Past Medical History:
see HPI
Past Surgical History: Reports Other
Additional Past Surgical History:
See HPI
Social History
Tobacco: Non-smoker
Alcohol: None
Drug: None
Family History
Family History: Not pertinent
Allergies / Home Medications
Allergies reflects when Allergies were last updated in [facility].
Home Medications with original date entered in [facility]
Allergy/Medication List:
Allergies
Allergy/AdvReac Type Severity Reaction Status Date / Time
succinylcholine Allergy Severe Unknown Verified 04/03/24 07:56
clopidogrel bisulfate Allergy Hives Verified 02/26/24 12:11
[From Plavix]
ezetimibe Allergy muscle Verified 02/26/24 12:11
[From Vytorin 10-10] aches
simvastatin Allergy muscle Verified 02/26/24 12:11
[From Vytorin 10-10] aches
Home Medications - not reconciled at the time
aspirin 81 mg tablet,delayed release 81 mg PO DAILY Blood clot prevention/tx 10/31/11
krill 1,000 mg-omega-3 230 mg-dha 60 ix-wkb-iscrzckvi-astaxan capsule (MegaRed [place]-3 Krill Oil) 1 cap PO DAILY Supplement 10/31/11
atorvastatin 40 mg tablet 40 mg PO DAILY High cholesterol 07/02/22
lisinopril 5 mg tablet 5 mg PO DAILY Blood Pressure 02/25/23
docusate sodium 100 mg capsule 100 mg PO BID #60 caps 02/27/23
tamsulosin 0.4 mg capsule 0.4 mg PO BID #60 caps 02/27/23
ascorbic acid (vitamin C) 500 mg tablet (Vitamin C) 500 mg PO DAILY Supplement 10/25/23
calcium carbonate (Calcium 600) 600 mg PO DAILY Supplement 10/25/23
cholecalciferol (vitamin D3) 10 mcg (400 unit) tablet (Vitamin D3) 10 mcg PO DAILY Supplement 10/25/23
folic acid 0.8 mg capsule 0.8 mg PO DAILY Supplement 10/25/23
magnesium citrate 300 ml PO DAILYPRN PRN constipation 10/25/23
pyridoxine (vitamin B6) 500 mg tablet 500 mg PO DAILY Supplement 10/25/23
relugolix 120 mg tablet (Orgovyx) 120 mg PO DAILY PROSTATE CANCER 10/25/23
cefdinir 300 mg capsule 300 mg PO BID 5 days #10 caps 10/28/23
doxycycline hyclate 100 mg capsule 100 mg PO BID #10 caps 10/28/23
hydrocortisone acetate 25 mg rectal suppository (Anusol-HC) 25 mg TX HS #12 ea 10/28/23
phenylephrine 0.25 %-mineral oil 14 %-petrolatm 74.9 % rectal ointment (Preparation H) 1 applic TX AMHS PRN hemorrhoids #57 grams 10/28/23
Review of Systems
-
History Source: Patient
A 12 point ROS was completed and negative except as noted: Yes
Respiratory: Reports Trouble Breathing; Denies Cough
Physical Exam
Vital Signs
Vital Signs
Temp Pulse Resp BP Pulse Ox
97.9 F 91 16 127/70 95
04/03/24 07:58 04/03/24 09:00 04/03/24 09:00 04/03/24 09:00 04/03/24 09:00
Physical Exam
General: Well Nourished, No Apparent Distress and Comfortable
HEENT: NormoCephalic, Anicteric and Moist mucous membranes
Respiratory: Clear and Crackles (b/l); No Wheezes or Rales
Cardiac: S1/S2 and Regular Rhythm; No Murmur
GI: Soft, Non Tender and Non Distended
Genito-urinary: No costovertebral tender
Musculoskeletal: No Clubbing, No Cyanosis and No Edema
Skin: Warm
Neuro: Awake, Alert, Oriented and AO x 3
Psych: Calm
Laboratory Results
-
04/03/24 08:42
04/03/24 08:42
Laboratory Results
Troponin I 0.022 ng/ml 04/03/24 08:42
Data Reviewed
-
CT Scan: Report Reviewed by me
Lab Data: Labs Reviewed by me
Impression/Plan
-
A/P:
#Acute hypoxic respiratory failure, suspect pneumonitis, possibly drug induced
CT showed ground glass opacity, Velcro-like crackles on auscultation
Check procalcitonin
Started on Abx in ED - reasonable to cont
Check Legionella and S.Pneumonia Ag
Steroids in view of recent CA treatment change
Duoneb
Pulm consult
Might need home O2
#mild anemia
#mild leukopenia
follow CBC
#Prostate CA with osseous mets and R hydroureter with progression
#BPH
follow Cr
watch for urinary retention
Hematology consult
#CAD s/p CABG
#Essential HTN
#HLD
cont home meds
Trop 0.022
ProBNP 667 - less then on previous admission
DVt ppx on Lovenox
Full code
I have spent at least 79min reviewing chart, test results, communication with consultants and direct patient care
[2024-04-03 11:47] LABS: COVID-19 Antigen Negative (Negative)
[2024-04-03 11:59] LABS: Procalcitonin < 0.05 ng/ml (0.0-0.25)
--- NOTE | 2024-04-03 12:23 | CON.PUL ---
Consultation
Consultation Request
Date/Time Consultation Requested: 04/03/24
Date/Time Consultation Performed: 04/03/24
Performing Provider: Luis
Reason for Consultation: SOB
Medical History
-
History of Present Illness:
Patient is an 78-year-old male with previous history of CAD, hypertension, myotonic dystrophy presenting to ER with shortness of breath and desaturation at home. Reportedly saturations were 88% on room air and with exertion was in the low 80s.
He was hospitalized back in October for community acquired pneumonia and required oxygen supplementation.
Was started on Xtandi for his 3rd line chemotherapy agent and began developing symptoms. CT chest showing bilateral interstitial process. ProBNP and procal negative.
This agent has been stopped for 3 days now.
Denies history of lung disease in the past, never smoker.
Past Medical History
Past Medical History: Other (see list below)
Social History
Tobacco: Non-smoker
Alcohol: None
Drug: None
Family History
Family History: Reviewed & Not Pertinent
Allergies / Home Medications
Allergies
Allergy/AdvReac Type Severity Reaction Status Date / Time
succinylcholine Allergy Severe Unknown Verified 04/03/24 07:56
clopidogrel bisulfate Allergy Hives Verified 02/26/24 12:11
[From Plavix]
ezetimibe Allergy muscle Verified 02/26/24 12:11
[From Vytorin 10-10] aches
simvastatin Allergy muscle Verified 02/26/24 12:11
[From Vytorin 10-10] aches
Home Medications
�Medication �Instructions �Recorded �Confirmed �Last Taken �Type
aspirin 81 mg tablet,delayed 81 mg PO DAILY Blood clot 10/31/11 10/25/23 10/25/23 History
release prevention/tx
krill 1,000 mg-omega-3 230 mg-dha 1 cap PO DAILY Supplement 10/31/11 10/25/23 10/25/23 History
60 nb-gzr-bxsbkocow-astaxan
capsule (MegaRed [place]-3 Krill Oil)
atorvastatin 40 mg tablet 40 mg PO DAILY High cholesterol 07/02/22 10/25/23 10/25/23 History
lisinopril 5 mg tablet 5 mg PO DAILY Blood Pressure 02/25/23 10/25/23 10/25/23 History
docusate sodium 100 mg capsule 100 mg PO BID #60 caps 02/27/23 10/25/23 Unknown Rx
tamsulosin 0.4 mg capsule 0.4 mg PO BID #60 caps 02/27/23 10/25/23 10/25/23 Rx
ascorbic acid (vitamin C) 500 mg 500 mg PO DAILY Supplement 10/25/23 10/25/23 10/25/23 History
tablet (Vitamin C)
calcium carbonate (Calcium 600) 600 mg PO DAILY Supplement 10/25/23 10/25/23 10/25/23 History
cholecalciferol (vitamin D3) 10 10 mcg PO DAILY Supplement 10/25/23 10/25/23 10/25/23 History
mcg (400 unit) tablet (Vitamin D3)
folic acid 0.8 mg capsule 0.8 mg PO DAILY Supplement 10/25/23 10/25/23 10/25/23 History
magnesium citrate 300 ml PO DAILYPRN PRN constipation 10/25/23 10/25/23 10/23/23 History
pyridoxine (vitamin B6) 500 mg 500 mg PO DAILY Supplement 10/25/23 10/25/23 10/25/23 History
tablet
relugolix 120 mg tablet (Orgovyx) 120 mg PO DAILY PROSTATE CANCER 10/25/23 10/25/23 10/25/23 History
cefdinir 300 mg capsule 300 mg PO BID 5 days #10 caps 10/28/23 Unknown Rx
doxycycline hyclate 100 mg capsule 100 mg PO BID #10 caps 10/28/23 Unknown Rx
hydrocortisone acetate 25 mg 25 mg HI HS #12 ea 10/28/23 Unknown Rx
rectal suppository (Anusol-HC)
phenylephrine 0.25 %-mineral oil 1 applic HI AMHS PRN hemorrhoids 10/28/23 Unknown Rx
14 %-petrolatm 74.9 % rectal #57 grams
ointment (Preparation H)
Review of Systems
-
History Source: Patient
All other systems: Negative unless noted
Vitals / Labs / Diagnostic Testing
Vital Signs
Temp Pulse Resp BP Pulse Ox
97.9 F 91 16 127/70 95
04/03/24 07:58 04/03/24 09:00 04/03/24 09:00 04/03/24 09:00 04/03/24 09:00
Lab Data
04/03/24 08:42
04/03/24 08:42
Microbiology
04/03/24 11:21 Nasal Swab Influenza Types A & B (ZAIN) - Final
Negative for Influenza A & B, NAAT
Negative results must be combined with clinical observations
and patient history.
Nucleic Acid Amplification test (NAAT)performed on the
[employer] platform.
Diagnostic Testing:
Physical Exam
-
HEENT: Normocephalic, Anicteric and Moist Mucous Membranes
Cardiovascular: S1/S2 and Regular Rhythm
Respiratory: Clear and Non-Labored Respirations
GI: Soft, Non Distended and Non Tender
Neurology: Awake, Alert, Oriented and No Motor Deficits
Skin: Warm, Dry and Good Color
General: Comfortable and Other (NAD)
Assessment
-
Patient is an 78-year-old male with previous history of CAD, hypertension, myotonic dystrophy presenting to ER with shortness of breath and desaturation at home. Reportedly saturations were 88% on room air and with exertion was in the low 80s.
He was hospitalized back in October for community acquired pneumonia and required oxygen supplementation.
Was started on Xtandi for his 3rd line chemotherapy agent and began developing symptoms. CT chest showing bilateral interstitial process. ProBNP and procal negative.
We are asked for evaluation of abnormal CT 04/03/24.
Acute hypoxic respiratory failure
Shortness of breath
Abnormal CT Chest
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
Conditions present prior to admission
Prostate cancer with sclerotic bone lesions
Hyperlipidemia
Hypertension
Chronic constipation
Hemorrhoids
CAD status post CABG x 3, stents x 2
Myotonic dystrophy
RLD
Plan
No oxygen was needed on admission, currently saturating >90% on RA
Denies history of lung disease in the past, never smoker.
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
CXR/CT obtained indicating diffuse interstitial process, less likely metastatic disease though lymphangitic spread may appear this way on imaging
Xtandi has been stopped for 3 days now.
Would repeat CT chest in next 48 hours to assess if it has improved
If not, or worsening, may consider diagnostic bronchoscopy
Agree with IV steroids for now
Rapid taper if improving, given history of myotonic dystrophy
Could be concern for aspiration, has seen speech in 2022 and did well
Reconsult speech for eval again
ProBNP and procal negative
Prior ECHO results are reviewed indicating stable function
Will need outpatient pulmonary evaluation in our office for PFTs and 6MWT
Reviewed with patient
History of prostate cancer with disease to bone
Discussed case with Dr. Pearson as well, his OP oncologist
We will follow
Diagnostic Data
Chest X-Ray:
CT Scan: CHEST 04/03/24- No evidence of pulmonary embolism.
Moderate patchy groundglass opacity bilaterally in the upper and lower lobes. No focal dense consolidation. There is a broad differential, which may include air trapping/small airway disease, infection (usually atypical), interstitial edema, diffuse
alveolar damage, hypersensitivity pneumonitis, and acute eosinophilic pneumonia. Other possible considerations may include aspiration or hemorrhage. In the chronic setting, consider hypersensitivity pneumonitis, nonspecific interstitial pneumonia,
desquamative interstitial pneumonia/respiratory bronchiolitis, sarcoidosis, or alveolar proteinosis.
PET/CT 02/18/24- MEDIASTINUM: No suspicious [id number] lesions. LUNGS: No suspicious [id number] lesions.
There are multiple patent new retroperitoneal and pelvic lymphadenopathy which demonstrates Ga-68 avidity.
Gallium-68 avid osseous lesions noted as well.
Echo: 11/17/23- 1. Mild LVH with normal LV size and function with EF 61%
2. Mild to moderate MR
3. Aortic sclerosis without stenosis
4. Mild HI
PFT's:
Reports and relevant images were personally reviewed.
Total time spent on this consultation __75__ minutes which includes review of history, physical exam, medications, laboratory data, personal review of imaging, extensive review of outpatient records, discussion with care team and respiratory therapy.
[2024-04-03] MEDS: VIBRAMYCIN 100 MG PO ×2 (14:32→21:38)
[2024-04-03] MEDS: SOLU-MEDROL PF 40 MG IV (14:32)
[2024-04-03] MEDS: DUONEB INH (15:20)
[2024-04-03] MEDS: LOVENOX 40 MG SC (16:56)
--- NOTE | 2024-04-03 20:02 | CON.ONC ---
Impression
Impression
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
Hypoxic respiratory failure with diffuse GGO, suspect hypersensitivity to Xtandi
Myotnoic dystrophy
Plan
Plan
Has been started on steroids. Appreciate Pulmonary input.
Due to concerns about minimizing chances of steroid myopathy, consider bronch if not improving within a few days.
Disease progression in lung highly unlikely due to improving PSA.
D/C Xtandi and will explore other treatment options as outpt. Xtandi was first treatment in castrate resistant setting.
Thank you for consult, will follow along with you.
Patient History
History of Present Illness
78 yo male well known to me from the outpt setting for history of metastatic prostate cancer. Metastatic at to bone diagnosis. Efforts to treat disease have been complicated due to hx of myotonic dystrophy as pt anxious to avoid any therapies
which could contribute to loss of muscle mass. 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 He was on dexamethasone 4 mg daily 02/21 - 03/12 for pain control, discontinued
when he finished radiation to L1 with Dr. Otero/[facility]. He was started on Xtandi 02/22, has not felt well since then. Pain has completed resolved and PSA improved but pt started with shortness of breath and malaise shortly after starting Xtandi.
Came to ED yesterday with shortness of breath, found to be hypoxic, denies fever. Chest CT shows diffuse GGO b/l, upper and lower lobes. BNP unremarkable. Last dose of Xtandi was three days ago.
PMHx of CAD s/p CABG, HLD, HTN, BPH, Hx of acute hypoxic failure 2/2 pneumonia in October 2023.
Past-Medical/Surgical History
Past Medical History:
Myotonic dystrophy, CAD s/p CABG, HLD, HTN, BPH, Hx of acute hypoxic failure 2/2 pneumonia in October 2023.
Past Surgical History:
CABG x 2011
Social History
Tobacco: Non-smoker
Alcohol: None
Drug: None
Family History
Family History: Not pertinent
Patient Medication
�Medication �Instructions �Recorded �Confirmed �Last Taken �Type
aspirin 81 mg tablet,delayed 81 mg PO DAILY Blood clot 10/31/11 04/03/24 04/03/24 History
release prevention/tx
atorvastatin 40 mg tablet 40 mg PO QPM High cholesterol 07/02/22 04/03/24 04/02/24 History
lisinopril 5 mg tablet 5 mg PO DAILY Blood Pressure 02/25/23 04/03/24 04/03/24 History
tamsulosin 0.4 mg capsule 0.4 mg PO BID #60 caps 02/27/23 04/03/24 04/03/24 Rx
cholecalciferol (vitamin D3) 10 25 mcg PO DAILY Supplement 10/25/23 04/03/24 04/03/24 History
mcg (400 unit) tablet (Vitamin D3)
folic acid 0.8 mg capsule 0.8 mg PO DAILY Supplement 10/25/23 04/03/24 04/03/24 History
relugolix 120 mg tablet (Orgovyx) 120 mg PO DAILY PROSTATE CANCER 10/25/23 04/03/24 04/03/24 History
bisacodyl 5 mg tablet,delayed 15 mg PO DAILYPRN PRN constipation 04/03/24 04/03/24 04/01/24 History
release (Dulcolax (bisacodyl))
denosumab 120 mg/1.7 mL (70 mg/mL) 120 mg SC Q4W 04/03/24 04/03/24 Unknown History
subcutaneous solution (Xgeva)
metoprolol succinate 50 mg 25 mg PO DAILY 04/03/24 04/03/24 04/03/24 History
tablet,extended release 24 hr
(Toprol XL)
peg 400-propylene glycol (PF) 0.4 1 drp BOTH EYES DAILY 04/03/24 04/03/24 04/03/24 History
%-0.3 % eye drops in a dropperette
(Systane (PF))
polyethylene glycol 3350 17 gram 17 g PO DAILYPRN PRN constipation 04/03/24 04/03/24 04/02/24 History
oral powder packet (Miralax)
Active Medications
Generic Name Dose Route Start Last Admin
Trade Name Freq PRN Reason Stop Dose Admin
Acetaminophen 650 mg 04/03/24 13:31
Acetaminophen 325 Mg Tablet PO 05/01/24 13:30
Q4HPRN PRN
mild pain/ENGEL/temp> 100.4F
Albuterol/Ipratropium 3 ml 04/03/24 13:31 04/03/24 19:57
Ipratropium 0.5/Albuterol 3 Mg (3 Ml Ampul) INH 3 ml
R QID STEPHON Administration
Protocol
Albuterol/Ipratropium 3 ml 04/03/24 13:31
Ipratropium 0.5/Albuterol 3 Mg (3 Ml Ampul) INH
R Q4HPRN PRN
shortness of breath
Protocol
Aspirin 81 mg 04/04/24 08:00
Aspirin 81 Mg (Enteric Coated) Tablet PO 05/02/24 07:59
DAILY STEPHON
Atorvastatin Calcium 40 mg 04/04/24 08:00
Atorvastatin (Lipitor) 40 Mg Tablet PO 05/02/24 07:59
DAILY STEPHON
Bisacodyl 10 mg 04/03/24 13:31
Bisacodyl 10 Mg Rectal Suppository RECTAL 05/01/24 13:30
[id number] PRN
constipation
Ceftriaxone Sodium 1,000 mg 04/04/24 12:00
Ceftriaxone 1000 Mg / 10 Ml Vial IV
Q24H STEPHON
Doxycycline Hyclate 100 mg 04/03/24 13:31 04/03/24 14:32
Doxycycline 100 Mg Capsule PO 100 mg
Q12 STEPHON Administration
Enoxaparin Sodium 40 mg 04/03/24 18:00 04/03/24 16:56
Enoxaparin Sodium 40 Mg/0.4 Ml Syringe SC 05/01/24 17:59 40 mg
QPM STEPHON Administration
Folic Acid 0.8 mg 04/04/24 08:00
Folic Acid 0.4 Mg Tablet PO 05/02/24 07:59
DAILY STEPHON
Lisinopril 5 mg 04/04/24 08:00
Lisinopril 5 Mg Tablet PO 05/02/24 07:59
DAILY STEPHON
Methylprednisolone Sodium Succinate 40 mg 04/03/24 14:00 04/03/24 14:32
Methylprednisolone Pf 40 Mg/Ml Vial IV 05/01/24 13:59 40 mg
Q12H STEPHON Administration
Metoprolol Succinate 25 mg 04/04/24 08:00
Metoprolol 25 Mg Extended Release Tablet PO 05/02/24 07:59
DAILY STEPHON
Miconazole Nitrate 0 applic 04/03/24 20:00
Miconazole Powder Bottle TOPICAL 05/01/24 19:59
BID STEPHON
Patient's Own Med ( 0 mg 04/04/24 08:00
Relugolix [Orgovyx] PO 05/02/24 07:59
120 Mg Tablet 1 DAILY@0800 STEPHON
Tablet Po Daily)
Polyethylene Glycol 17 grams 04/03/24 13:31
Polyethylene Glycol Powder 17 Grams Packet PO 05/01/24 13:30
DAILYPRN PRN
constipation
Senna/Docusate Sodium 1 tablet 04/03/24 13:31
Docusate W/Senna (Tina-Colace) Tablet PO 05/01/24 13:30
BIDPRN PRN
constipation
Sodium Chloride 0 flush 04/03/24 20:00
Sodium Chloride 0.9% (Flush) Syringe IV 05/01/24 19:59
PER PROTOCOL STEPHON
Tamsulosin HCl 0.4 mg 04/03/24 20:00
Tamsulosin 0.4 Mg Capsule PO 05/01/24 19:59
BID STEPHON
Review of Systems
-
Denies fevers, chills. Denies cough.
Admits to progressive weakness.
HPI otherwise negative in detail except as per HPI.
Physical Exam
-
Awake, alert, non-toxic
Heart RRR
Lungs clear
Abd soft, non-tender
Extrem no edema
Neuro grossly non-focal
Labs
Lab Results
WBC 4.5 10^3/uL (4.8-10.8) L 04/03/24 08:42
RBC 3.61 10^6/uL (4.70-6.10) L 04/03/24 08:42
Hgb 11.7 g/dL (13.0-18.0) L 04/03/24 08:42
Hct 34.1 % (39.0-52.0) L 04/03/24 08:42
MCV 94.5 fL (80.0-94.0) H 04/03/24 08:42
MCH 32.4 pg (27.0-31.0) H 04/03/24 08:42
MCHC 34.3 g/dL (33.0-37.0) 04/03/24 08:42
RDW 13.8 % (11.5-14.5) 04/03/24 08:42
Plt Count 283 10^3/uL (130-400) 04/03/24 08:42
MPV 9.0 fL (7.4-10.4) 04/03/24 08:42
Abs Immat Gran (auto) 0.0 10^3/uL (0-0.05) 04/03/24 08:42
Absolute Neuts (auto) 2.8 10^3/uL (1.4-6.5) 04/03/24 08:42
Absolute Lymphs (auto) 1.0 10^3/uL (1.2-3.4) L 04/03/24 08:42
Absolute Monos (auto) 0.5 10^3/uL (0.1-0.6) 04/03/24 08:42
Absolute Eos (auto) 0.2 10^3/uL (0-0.7) 04/03/24 08:42
Absolute Basos (auto) 0.0 10^3/uL (0-0.2) 04/03/24 08:42
Immature Gran % 0.7 % (0-0.5) H 04/03/24 08:42
Neutrophils % 61.3 % (42.2-75.2) 04/03/24 08:42
Lymphocytes % 21.4 % (20.5-51.1) 04/03/24 08:42
Monocytes % 10.8 % (1.7-9.3) H 04/03/24 08:42
Eosinophils % 4.9 % (0-6) 04/03/24 08:42
Basophils % 0.9 % (0-2) 04/03/24 08:42
Creatinine 0.6 mg/dL (0.7-1.3) L 04/03/24 08:42
Vital Signs
Vital Signs
Temp Pulse Resp BP Pulse Ox
98.4 F 88 16 96/52 95
04/03/24 15:52 04/03/24 20:00 04/03/24 20:00 04/03/24 15:52 04/03/24 20:00
[2024-04-03] MEDS: FLOMAX 0.4 MG PO (21:38)
[2024-04-03] MEDS: DESENEX/MITRAZOL/ZEASORB 1 APPLIC TOPICAL (21:38)
[2024-04-04] MEDS: SOLU-MEDROL PF 40 MG IV ×2 (02:08→13:05)
[2024-04-04] MEDS: DUONEB 3 ML INH ×4 (07:30→19:45)
[2024-04-04 07:35] VITALS: BP 116/54
[2024-04-04] MEDS: ZESTRIL 5 MG PO (08:15)
[2024-04-04] MEDS: ASPIR LOW (ENTERIC COATED) 81 MG PO (08:15)
[2024-04-04] MEDS: TOPROL XL 25 MG PO (08:15)
[2024-04-04] MEDS: FLOMAX 0.4 MG PO ×2 (08:15→21:26)
[2024-04-04] MEDS: FOLVITE 0.8 MG PO (08:15)
[2024-04-04] MEDS: LIPITOR 40 MG PO (08:15)
[2024-04-04] MEDS: VIBRAMYCIN 100 MG PO ×2 (08:15→21:26)
[2024-04-04] MEDS: DESENEX/MITRAZOL/ZEASORB 1 APPLIC TOPICAL ×2 (08:17→21:26)
--- NOTE | 2024-04-04 09:45 | PTOTSP ---
Speech Therapy Evaluation:
Pt seen for bedside swallow evaluation. Pt with oropharyngeal swallow that appears within functional limits with no overt s/sx of aspiration with regular solids or thin liquids. Recommend to continue current diet level. CANE PILER to s/o.
Recommend:
1. Continue IDDSI Level 7 (regular) solids and thin liquids
2. Medications whole with thins
3. General aspiration precautions
4. CANE PILER to s/o. Please re-consult if indicated.
[2024-04-04 09:56] LABS: Hematocrit 31.6 % (39.0-52.0); Hemoglobin 10.7 g/dL (13.0-18.0); Mean Corp Hgb Conc. 33.9 g/dL (33.0-37.0); Mean Corpuscular Hgb 32.3 pg (27.0-31.0); Mean Corpuscular Volume 95.5 fL (80.0-94.0); Mean Platelet Volume 9.2 fL (7.4-10.4); Platelet Count 293 10^3/uL (130-400); Red Blood Cell Count 3.31 10^6/uL (4.70-6.10); Red Cell Dist. Width 13.9 % (11.5-14.5); White Blood Cell Count 3.3 10^3/uL (4.8-10.8)
--- NOTE | 2024-04-04 09:59 | W.PN.PUL.V3 ---
Today's Communication / Plan
-
Finite course of antibiotics.
Methylprednisolone-fairly rapid taper.
Radiographic follow-up.
Wean oxygen and increase activity
Assessment
-
Patient is an 78-year-old male with previous history of CAD, hypertension, myotonic dystrophy presenting to ER with shortness of breath and desaturation at home. Reportedly saturations were 88% on room air and with exertion was in the low 80s.
He was hospitalized back in October for community acquired pneumonia and required oxygen supplementation.
Was started on Xtandi for his 3rd line chemotherapy agent and began developing symptoms. CT chest showing bilateral interstitial process. ProBNP and procal negative.
We are asked for evaluation of abnormal CT 04/03/24.
Acute hypoxic respiratory failure
Shortness of breath
Abnormal CT Chest
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
Conditions present prior to admission:
Prostate cancer with sclerotic bone lesions
Hyperlipidemia
Hypertension
Chronic constipation
Hemorrhoids
CAD status post CABG x 3, stents x 2
Myotonic dystrophy
RLD
Plan
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
CXR/CT obtained indicating diffuse interstitial process, less likely metastatic disease though lymphangitic spread may appear this way on imaging
Xtandi has been stopped for 5 days now.
Would repeat CT chest in next 48 hours to assess if it has improved
If not, or worsening, may consider diagnostic bronchoscopy.
Nebulizers.
Wean oxygen
No oxygen was needed on admission, currently saturating >90% on RA
Denies history of lung disease in the past, never smoker.
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
Check cultures.
Ceftriaxone and doxycycline empirically-finite course
Continue with steroids-Methylprednisolone 40 mg IV every 12 hourstaper fairly rapidly given history of myotonic dystrophy.
Aspiration precautions.
Speech therapy evaluation noted-level VII, regular solids with thin liquids
History of prostate cancer with disease to bone
Discussed case with Dr. Pearson as well, his OP oncologist
Will need outpatient pulmonary evaluation in our office for PFTs and 6MWT
Reviewed with patient
Diagnostic Data
CT Scan: CHEST 04/03/24- No evidence of pulmonary embolism.
Moderate patchy groundglass opacity bilaterally in the upper and lower lobes. No focal dense consolidation. There is a broad differential, which may include air trapping/small airway disease, infection (usually atypical), interstitial edema, diffuse
alveolar damage, hypersensitivity pneumonitis, and acute eosinophilic pneumonia. Other possible considerations may include aspiration or hemorrhage. In the chronic setting, consider hypersensitivity pneumonitis, nonspecific interstitial pneumonia,
desquamative interstitial pneumonia/respiratory bronchiolitis, sarcoidosis, or alveolar proteinosis.
PET/CT 02/18/24- MEDIASTINUM: No suspicious [id number]-xhot lesions. LUNGS: No suspicious [id number] lesions.
There are multiple patent new retroperitoneal and pelvic lymphadenopathy which demonstrates Ga-68 avidity.
Gallium-68 avid osseous lesions noted as well.
Echo: 11/17/23- 1. Mild LVH with normal LV size and function with EF 61%
2. Mild to moderate MR
3. Aortic sclerosis without stenosis
4. Mild FL
Reports and relevant images were personally reviewed.
Subjective Data
-
Date of Service:
Date of Service: April 04, 2024
Chief Complaint: Pulmonary Follow Up and Dyspnea Follow Up
Subjective:
Overall feels better, less short of breath, saturations improved on room air, no chest pain, productive cough, or abdominal pain
Review of Systems
General: Other ( perHPI)
Objective Data
Data Reviewed
Vital Signs / I&O:
Vital Signs
Temp Pulse Resp BP Pulse Ox
98.4 F 115 20 107/62 93
04/04/24 07:35 04/04/24 08:15 04/04/24 07:35 04/04/24 08:15 04/04/24 07:35
Intake and Output
04/03/24 04/04/24 04/05/24
06:59 06:59 06:59
Intake Total 960 / 960
Balance 960 / 960
SaO2: 93
Nasal Cannula flow liters per minute: 3
Physical Exam
General: Respiratory Distress (n) and Comfortable
HEENT: Normocephalic and Anicteric
Cardiovascular: Regular Rhythm
Respiratory: Wheeze (n), Crackles, Rhonchi (n), Non-Labored Respirations, Accessory Resp Muscle Use (n) and Stridor (n)
GI: Soft, Non Distended and Non Tender
Neurology: Awake, Alert and Other ( muscular dystrophy)
Labs/Micro/Reports
Lab Data
04/04/24 09:03
Microbiology
04/03/24 17:03 Urine Legionella Urinary Antigen - Final
Negative for Legionella pneumophila Serogroup 1 antigen.
A negative result does not rule out the possiblity of
Legionella infection due to other serogroups or species of
Legionella. Clinical correlation is recommended.
04/03/24 17:03 Urine Streptococcus pneumoniae Antigen (M - Final
Negative for Streptococcus pneumoniae antigen.
A negative result does not exclude infection with
Streptococcus pneumoniae. Clinical correlation is
recommended.
04/03/24 11:21 Nasal Swab Influenza Types A & B (ZAIN) - Final
Negative for Influenza A & B, NAAT
Negative results must be combined with clinical observations
and patient history.
Nucleic Acid Amplification test (NAAT)performed on the
[employer] platform.
--- NOTE | 2024-04-04 10:09 | CM ---
Pt seen bedside. Initial assessment completed.
Pt lives w/ spouse in a 2STH-1 step to enter the home. Per pt, he and his reside only on [address].
Pt uses walker for ambulating. No other DME was identified
Pt denies SNF hx, had [facility] in the past
Address, point of contacts and insurances verified
PCP: Dr. Linda Ng
Pharmacy: [facility]
Plan: CM will cont to follow for d/c planning
[2024-04-04 10:22] LABS: ALT (SGPT) 15 U/L (0-50); AST (SGOT) 22 U/L (17-59); Albumin 3.3 g/dl (3.5-5.0); Alkaline Phosphatase 67 U/L (38-126); Blood Urea Nitrogen 23 mg/dl (9-20); Calcium 9.1 mg/dl (8.4-10.2); Carbon Dioxide 25 mmol/L (22-30); Chloride 104 mmol/L (98-107); Estimated Creatinine Clearance 92 ml/min; Glucose 247 mg/dl (70-99); Potassium 4.1 mmol/L (3.5-5.1); Sodium 138 mmol/L (135-145); Total Bilirubin 0.4 mg/dl (0.2-1.3); Total Protein 5.5 g/dl (6.3-8.2); eGFR > 60.00
--- NOTE | 2024-04-04 12:02 | W.PN.HOSP.TC ---
Today's Communication/Plan
-
IV steroids
Wean o2
Pulm recs
oob/pt/ot
Assessment / Plan
Assessment / Plan
General: Well Nourished, No Apparent Distress and Comfortable
HEENT: NormoCephalic, Anicteric and Moist mucous membranes
Respiratory: Clear and Crackles (b/l); No Wheezes or Rales
Cardiac: S1/S2 and Regular Rhythm; No Murmur
GI: Soft, Non Tender and Non Distended
Genito-urinary: No costovertebral tender
Musculoskeletal: No Clubbing, No Cyanosis and No Edema
Skin: Warm
Neuro: Awake, Alert, Oriented and AO x 3
Psych: Calm
A/P:
#Acute hypoxic respiratory failure, suspect pneumonitis, possibly drug induced
CT showed ground glass opacity, Velcro-like crackles on auscultation
Check procalcitonin
Started on Abx in ED - reasonable to cont however, procal negative.
Check Legionella and S.Pneumonia Ag-negative
COVID/FLU negative
Steroids in view of recent CA treatment change
Duoneb
Pulm consult
Might need home O2
Plan for repeat CT chest in 24-48h.
#mild anemia
#mild leukopenia
follow CBC
#Prostate CA with osseous mets and R hydroureter with progression
#BPH
follow Cr
watch for urinary retention
Hematology consult
#CAD s/p CABG
#Essential HTN
#HLD
cont home meds
Trop 0.022
ProBNP 667 - less then on previous admission
DVt ppx on Lovenox
Full code
Anticipated Discharge: > 48 hours
Subjective/Interval History
-
Date of Service: April 04, 2024
states breathing has improved
remains on 2L oxygen
Objective Data
-
Labs:
Laboratory Results
04/04/24
09:03
WBC 3.3 L
Hgb 10.7 L
Hct 31.6 L
Plt Count 293
Sodium 138
Potassium 4.1
Chloride 104
Carbon Dioxide 25
BUN 23 H
Creatinine 0.6 L
Glucose 247 H
Calcium 9.1
Total Bilirubin 0.4
AST 22
ALT 15
Alkaline Phosphatase 67
Vital Signs:
Vital Signs
Temp Pulse Resp BP Pulse Ox
98.4 F 85 16 107/62 95
04/04/24 07:35 04/04/24 11:35 04/04/24 11:35 04/04/24 08:15 04/04/24 11:35
I&O
04/03/24 04/04/24 04/05/24
06:59 06:59 06:59
Intake Total 960 / 960
Balance 960 / 960
Data Reviewed
-
Total Time Spent with Patient (in minutes): 52
[2024-04-04] MEDS: ROCEPHIN 1000 MG IV (13:04)
[2024-04-04 14:27] VITALS: BMI 29.1
[2024-04-04 14:44] VITALS: BP 97/49; PULSE 98; O2SAT 93
[2024-04-04 15:20] VITALS: BP 84/46
[2024-04-04] MEDS: ProAmatine 5 MG PO ×2 (15:27→23:31)
[2024-04-04] MEDS: NON-FORMULARY ITEM PO (17:05)
[2024-04-04] MEDS: LOVENOX 40 MG SC (17:17)
--- NOTE | 2024-04-04 20:52 | W.PN.ONC2 ---
Today's Communication / Plan
-
Monitor for improvement on steroids.
Low threshold for bronch.
Prefer to minimize steroids, if not needed, due to baseline muscle weakness.
Impression
Impression
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
Hypoxic respiratory failure with diffuse GGO, suspect hypersensitivity to Xtandi
Myotonic dystrophy
Plan
Plan
Has been started on steroids. Appreciate Pulmonary input.
Due to concerns about minimizing chances of steroid myopathy, consider bronch if not improving within a few days.
Disease progression in lung highly unlikely due to improving PSA.
D/C Xtandi and will explore other treatment options as outpt. Xtandi was first treatment in castrate resistant setting.
Subjective/Objective
Chief Complaint
Heme/Onc follow up of metastatic prostate cancer
Subjective
Feels a little better than yesterday although no change in O2 requirement so far. Gets short of breath with minimal activity.
Vital Signs:
Vital Signs
Temp Pulse Resp BP Pulse Ox
97.4 F 90 16 84/46 95
04/04/24 15:20 04/04/24 19:47 04/04/24 19:47 04/04/24 15:27 04/04/24 19:47
Lab Results:
Laboratory Data
WBC 3.3 10^3/uL (4.8-10.8) L 04/04/24 09:03
Hgb 10.7 g/dL (13.0-18.0) L 04/04/24 09:03
Plt Count 293 10^3/uL (130-400) 04/04/24 09:03
eGFR > 60.00 04/04/24 09:03
Physical Exam
HEENT: Moist Mucous Membranes; No Jaundice
Cardiology: Normal Sinus Rhythm, S1 and S2
Pulmonary: Clear
GI: Soft
Extremities: No C/C/E
Neuro: Non Focal
Review of Systems
Review of Systems
Constitutional: Reports Fatigue; Denies Fever
[2024-04-04 23:28] VITALS: BP 99/64
[2024-04-05] MEDS: SOLU-MEDROL PF 40 MG IV (01:37)
[2024-04-05 07:35] VITALS: BP 125/66
[2024-04-05] MEDS: FLOMAX 0.4 MG PO ×2 (07:39→20:12)
[2024-04-05] MEDS: TOPROL XL 12.5 MG PO (07:39)
[2024-04-05] MEDS: NON-FORMULARY ITEM 120 MG PO (07:40)
[2024-04-05] MEDS: LIPITOR 40 MG PO (07:40)
[2024-04-05] MEDS: VITAMIN D3 (cholecalciferol) 25 MCG PO (07:40)
[2024-04-05] MEDS: FOLVITE 0.8 MG PO (07:40)
[2024-04-05] MEDS: ASPIR LOW (ENTERIC COATED) 81 MG PO (07:40)
[2024-04-05] MEDS: VIBRAMYCIN 100 MG PO ×2 (07:40→20:12)
[2024-04-05] MEDS: REFRESH EYE DROPS (PF) 1 DROPS BOTH EYES (07:40)
[2024-04-05] MEDS: DESENEX/MITRAZOL/ZEASORB TOPICAL (07:45)
[2024-04-05] MEDS: DUONEB 3 ML INH ×4 (08:19→19:37)
[2024-04-05 08:39] LABS: % Basophils 0.2 % (0-2); % Immature Granulocytes 0.8 % (0-0.5); % Lymphocytes 18.8 % (20.5-51.1); % Neutrophils 75.2 % (42.2-75.2); Absolute Monocytes 0.3 10^3/uL (0.1-0.6); Absolute Neutrophils 3.8 10^3/uL (1.4-6.5); Hematocrit 33.6 % (39.0-52.0); Hemoglobin 11.1 g/dL (13.0-18.0); Mean Corpuscular Hgb 31.8 pg (27.0-31.0); Mean Corpuscular Volume 96.3 fL (80.0-94.0); Mean Platelet Volume 9.3 fL (7.4-10.4); Nucleated Red Blood Cells % 0 % (-); Platelet Count 350 10^3/uL (130-400); Red Blood Cell Count 3.49 10^6/uL (4.70-6.10); Red Cell Dist. Width 14.1 % (11.5-14.5)
[2024-04-05 08:58] LABS: Blood Urea Nitrogen 24 mg/dl (9-20); Calcium 9.4 mg/dl (8.4-10.2); Carbon Dioxide 26 mmol/L (22-30); Chloride 107 mmol/L (98-107); Estimated Creatinine Clearance 92 ml/min; Glucose 134 mg/dl (70-99); Potassium 4.6 mmol/L (3.5-5.1); Sodium 141 mmol/L (135-145); eGFR > 60.00
--- NOTE | 2024-04-05 10:15 | W.PN.PUL.V3 ---
Today's Communication / Plan
-
Decrease steroids-convert to prednisone 40 mg with fairly rapid taper in the next 24 hours
Wean oxygen
Increase activity
Outpatient radiographic follow-up
Hold on endoscopy
Assessment
-
Patient is an 78-year-old male with previous history of CAD, hypertension, myotonic dystrophy presenting to ER with shortness of breath and desaturation at home. Reportedly saturations were 88% on room air and with exertion was in the low 80s.
He was hospitalized back in October for community acquired pneumonia and required oxygen supplementation.
Was started on Xtandi for his 3rd line chemotherapy agent and began developing symptoms. CT chest showing bilateral interstitial process. ProBNP and procal negative.
We are asked for evaluation of abnormal CT 04/03/24.
Acute hypoxic respiratory failure
Shortness of breath
Abnormal CT Chest
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
Conditions present prior to admission:
Prostate cancer with sclerotic bone lesions
Hyperlipidemia
Hypertension
Chronic constipation
Hemorrhoids
CAD status post CABG x 3, stents x 2
Myotonic dystrophy
RLD
Plan
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
CXR/CT obtained indicating diffuse interstitial process, less likely metastatic disease though lymphangitic spread may appear this way on imaging
Xtandi has been stopped for 5 days now.
Clinically responding to discontinuation of medications and steroids
Repeat CT chest can be done as an outpatient
Assess for discharge supplemental oxygen needs-reportedly ambulated on room air with desaturation beata 89%-would not qualify for home oxygen
Nebulizers as needed
Hold off on bronchoscopy for now-explained rationale to him-improving
No oxygen was needed on admission, currently saturating >90% on RA
Denies history of lung disease in the past, never smoker.
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
Cultures reviewed-unrevealing
Ceftriaxone and doxycycline empirically-finite course
Continue with steroids-Methylprednisolone 40 mg IV every 12 hours-reduce to once daily and convert to prednisone 40 mg with fairly rapid taper in the next 24 hours
Aspiration precautions.
Speech therapy evaluation noted-level VII, regular solids with thin liquids
History of prostate cancer with disease to bone
Discussed case with Dr. Pearson as well, his OP oncologist
Will need outpatient pulmonary evaluation in our office for PFTs and 6MWT
Reviewed with patient
Diagnostic Data
CT Scan: CHEST 04/03/24- No evidence of pulmonary embolism.
Moderate patchy groundglass opacity bilaterally in the upper and lower lobes. No focal dense consolidation. There is a broad differential, which may include air trapping/small airway disease, infection (usually atypical), interstitial edema, diffuse
alveolar damage, hypersensitivity pneumonitis, and acute eosinophilic pneumonia. Other possible considerations may include aspiration or hemorrhage. In the chronic setting, consider hypersensitivity pneumonitis, nonspecific interstitial pneumonia,
desquamative interstitial pneumonia/respiratory bronchiolitis, sarcoidosis, or alveolar proteinosis.
PET/CT 02/18/24- MEDIASTINUM: No suspicious [id number]-avnc lesions. LUNGS: No suspicious Yo50-oudn lesions.
There are multiple patent new retroperitoneal and pelvic lymphadenopathy which demonstrates Ga-68 avidity.
Gallium-68 avid osseous lesions noted as well.
Echo: 11/17/23- 1. Mild LVH with normal LV size and function with EF 61%
2. Mild to moderate MR
3. Aortic sclerosis without stenosis
4. Mild CO
Reports and relevant images were personally reviewed.
Subjective Data
-
Date of Service:
Date of Service: April 05, 2024
Chief Complaint: Pulmonary Follow Up and Dyspnea Follow Up
Subjective:
Feels better, less desaturations, no chest congestion, sputum production, pleurisy or abdominal pain
Review of Systems
General: Other (Per HPI)
Objective Data
Data Reviewed
Vital Signs / I&O:
Vital Signs
Temp Pulse Resp BP Pulse Ox
98.0 F 105 20 125/66 94
04/05/24 07:35 04/05/24 08:22 04/05/24 08:22 04/05/24 07:39 04/05/24 08:22
Intake and Output
04/04/24 04/05/24 04/06/24
06:59 06:59 06:59
Intake Total 960 / 960 840 / 840
Balance 960 / 960 840 / 840
SaO2: 94
Nasal Cannula flow liters per minute: 2
Physical Exam
General: Respiratory Distress (n) and Comfortable
HEENT: Normocephalic and Anicteric
Cardiovascular: Regular Rhythm
Respiratory: Wheeze (n), Crackles, Rhonchi (n), Non-Labored Respirations, Accessory Resp Muscle Use (n) and Stridor (n)
GI: Soft, Non Distended and Non Tender
Neurology: Awake, Alert and Other ( muscular dystrophy)
Labs/Micro/Reports
Lab Data
04/05/24 07:32
04/05/24 07:32
Microbiology
04/03/24 17:03 Urine Legionella Urinary Antigen - Final
Negative for Legionella pneumophila Serogroup 1 antigen.
A negative result does not rule out the possiblity of
Legionella infection due to other serogroups or species of
Legionella. Clinical correlation is recommended.
04/03/24 17:03 Urine Streptococcus pneumoniae Antigen (M - Final
Negative for Streptococcus pneumoniae antigen.
A negative result does not exclude infection with
Streptococcus pneumoniae. Clinical correlation is
recommended.
04/03/24 11:21 Nasal Swab Influenza Types A & B (ZAIN) - Final
Negative for Influenza A & B, NAAT
Negative results must be combined with clinical observations
and patient history.
Nucleic Acid Amplification test (NAAT)performed on the
[employer] platform.
--- NOTE | 2024-04-05 11:43 | W.PN.HOSP.TC ---
Today's Communication/Plan
-
Decrease steroids to daily
Home O2 eval in the morning
Quick steroid taper regimen
Encourage out of bed
Off lisinopril. Monitor blood pressure.
Assessment / Plan
Assessment / Plan
General: Well Nourished, No Apparent Distress and Comfortable
HEENT: NormoCephalic, Anicteric and Moist mucous membranes
Respiratory: Dec bs, no franco crackles heard today, not tachypneic
Cardiac: S1/S2 and Regular Rhythm; No Murmur
GI: Soft, Non Tender and Non Distended
Genito-urinary: No costovertebral tender
Musculoskeletal: No Clubbing, No Cyanosis and No Edema
Skin: Warm
Neuro: Awake, Alert, Oriented and AO x 3
Psych: Calm
A/P:
#Acute hypoxic respiratory failure, suspect pneumonitis, possibly drug induced
CT showed ground glass opacity, Velcro-like crackles on auscultation
Check procalcitonin
Started on Abx in ED - reasonable to cont however, procal negative.
Check Legionella and S.Pneumonia Ag-negative
COVID/FLU negative
Steroids in view of recent CA treatment change
Duoneb
Pulm consult
Symptomatically patient improved significantly and no need for repeat CT chest. Pulmonary correspondence noted. Solu-Medrol decreased to 40 mg daily. Quick steroid taper on discharge.
Home O2 eval in morning
#mild anemia
#mild leukopenia
follow CBC
#Prostate CA with osseous mets and R hydroureter with progression
#BPH
follow Cr
watch for urinary retention
Hematology consult
#CAD s/p CABG
#Essential HTN
#HLD
Patient with soft blood pressure at times. DC lisinopril.
Trop 0.022
ProBNP 667 - less then on previous admission
DVt ppx on Lovenox
Full code
PT/OT-Home VN
Anticipated Discharge: Within 24 hours
Subjective/Interval History
-
Date of Service: April 05, 2024
Patient walking around the hallway
on room air
Sats >88%
Objective Data
-
Labs:
Laboratory Results
04/05/24
07:32
WBC 5.0
Hgb 11.1 L
Hct 33.6 L
Plt Count 350
Sodium 141
Potassium 4.6
Chloride 107
Carbon Dioxide 26
BUN 24 H
Creatinine 0.5 L
Glucose 134 H
Calcium 9.4
Vital Signs:
Vital Signs
Temp Pulse Resp BP Pulse Ox
98.0 F 105 20 125/66 94
04/05/24 07:35 04/05/24 08:22 04/05/24 08:22 04/05/24 07:39 04/05/24 10:15
I&O
04/04/24 04/05/24 04/06/24
06:59 06:59 06:59
Intake Total 960 / 960 840 / 840
Balance 960 / 960 840 / 840
Data Reviewed
-
Total Time Spent with Patient (in minutes): 51
[2024-04-05] MEDS: ROCEPHIN 1000 MG IV (11:46)
--- NOTE | 2024-04-05 11:59 | PN.CDI ---
CDI
- -
CDI:
Physician Documentation Request
Admit Date: 04/03/24 12:03
Dear Doctor Valentine,
Patient admitted for respiratory failure.
04/04 Heel Cover Splitter Assessment: 'Compared to weight of 205 lbs 1 month ago pt with a 20 lb (10%) weight loss significant. With weight loss of > 5% in 1 month and < 75% estimated needs > 1 month pt meets AND/ASPEN criteria for moderate protein
calorie malnutrition of chronic illness.'
Based on the above information and your assessment, which of the following most accurately represents the patient's nutritional status?
Moderate protein calorie malnutrition
Other
[place] Criteria ([facility] 2017)
2 or more criteria must be present for either
non severe or severe malnutrition
Note that the criteria differs related to the
presence of an acute or chronic illness
Acute Illness Chronic Illness
Energy Intake Non Severe: <75% for >7 days Non Severe: <75% for >1 month
Severe: <50% for >5 days Severe: <75% for >1 month
Weight Loss Non Severe: 1-2% over 1 week Non Severe: 5% over 1 month
5% over 1 month 7.5% over 3 months
7.5% over 3 months 10% over 6 months
1 year N/A 20% over 1 year
Severe: >2% over 1 week Severe: >5% over 1 month
>5% over 1 month >7.5% over 3 months
>7.5% over 3 months >10% over 6 months
1 year N/A >20% over 1 year
Body Fat Non Severe: Mild Decrease Non Severe: Mild Loss
Severe: Moderate Decrease Severe: Severe Loss
Muscle Mass Non Severe: Mild Decrease Non Severe: Mild Loss
Severe: Moderate Decrease Severe: Severe Loss
Fluid Accumulation Non Severe: Mild Accumulation Non Severe: Mild Accumulation
Severe: Moderate to severe Severe: Moderate to severe
accumulation accumulation
Reduced Outsole Splicer Strength Non Severe: N/A Non Severe: N/A
Severe: Measurably reduced Severe: Measurably reduced
Additional criteria that can be used to Determine if Mild or Moderate Malnutrition ([employer] Manual 2018)
Mild Moderate Severe
Albumin gm/dl <3.0 gm/dl <2.5 gm/dl <2.0 gm/dl
Pre Albumin mg/dl <15 gm/dl <10 mg/dl <5.0 mg/dl
BMI <18.5 <17 <16
Use of terms such as suspected, likely, concern for, or probable (associated with a specific diagnosis that is being evaluated, monitored, or treated as if it exists) are acceptable and can be coded in the inpatient setting, when documented at the
time of discharge.
Thank you,
Yudith Painter RN, BSN
CDI Specialist
Available via [place] text
Please use your independent medical judgment in providing your response.
--- NOTE | 2024-04-05 12:55 | CM ---
Chart reviewed. Pt currently on 2L O2. Home O2 eval tomorrow morning
BP monitoring
Per hospitalist note, poss d/c tomorrow
Will watch for home O2 eval recommendations if any
Plan: Home w/ possibly no needs vs needs
--- NOTE | 2024-04-05 14:32 | W.PN.ONC2 ---
Today's Communication / Plan
-
steroid taper per pulmonary. Prefer to minimize steroids, if not needed, due to baseline muscle weakness
OP follow up will be arranged upon discharge
Impression
Impression
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
Hypoxic respiratory failure with diffuse GGO, suspect hypersensitivity to Xtandi. Clinically responding to discontinuation of Xtandi and now on steroids
Myotonic dystrophy
Plan
Plan
Has been started on steroids taper. Appreciate Pulmonary input.
Disease progression in lung highly unlikely due to improving PSA.
D/C Xtandi and will explore other treatment options as outpt. Xtandi was first treatment in castrate resistant setting.
Subjective/Objective
Subjective
no new complaints
Vital Signs:
Vital Signs
Temp Pulse Resp BP Pulse Ox
98.0 F 105 20 125/66 94
04/05/24 07:35 04/05/24 08:22 04/05/24 08:22 04/05/24 07:39 04/05/24 10:15
Lab Results:
Laboratory Data
WBC 5.0 10^3/uL (4.8-10.8) 04/05/24 07:32
Hgb 11.1 g/dL (13.0-18.0) L 04/05/24 07:32
Plt Count 350 10^3/uL (130-400) 04/05/24 07:32
eGFR > 60.00 04/05/24 07:32
[2024-04-05 15:01] VITALS: BP 107/53
[2024-04-05 15:27] VITALS: BP 110/62; PULSE 110; PULSE 140; O2SAT 92
[2024-04-05] MEDS: LOVENOX 40 MG SC (17:43)
[2024-04-05] MEDS: DESENEX/MITRAZOL/ZEASORB 1 APPLIC TOPICAL (20:18)
[2024-04-05 23:43] VITALS: BP 135/71
[2024-04-06 06:31] VITALS: BMI 29.4
--- NOTE | 2024-04-06 06:42 | W.PN.ONC2 ---
Today's Communication / Plan
-
Outpt F/U Dr. Pearson.
Stable for D/C from Oncology perspective.
Oncology will sign off.
Impression
Impression
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
Hypoxic respiratory failure with diffuse GGO, suspect hypersensitivity to Xtandi. Clinically responding to discontinuation of Xtandi and now on steroids
Myotonic dystrophy
Plan
Plan
Has been started on steroids taper. Appreciate Pulmonary input.
Disease progression in lung highly unlikely due to improving PSA.
D/C Xtandi and will explore other treatment options as outpt. Xtandi was first treatment in castrate resistant setting.
Subjective/Objective
Chief Complaint
ACS Heme Onc
Subjective
Hoping to go home. Feels okay.
Vital Signs:
Vital Signs
Temp Pulse Resp BP Pulse Ox
98.4 F 98 18 135/71 93
04/05/24 23:43 04/05/24 23:43 04/05/24 23:43 04/05/24 23:43 04/05/24 23:43
Lab Results:
Laboratory Data
WBC 5.0 10^3/uL (4.8-10.8) 04/05/24 07:32
Hgb 11.1 g/dL (13.0-18.0) L 04/05/24 07:32
Plt Count 350 10^3/uL (130-400) 04/05/24 07:32
eGFR > 60.00 04/05/24 07:32
[2024-04-06 07:53] VITALS: BP 135/64
[2024-04-06 07:59] LABS: % Basophils 0.6 % (0-2); % Eosinophils 3.4 % (0-6); % Lymphocytes 20.6 % (20.5-51.1); % Monocytes 11.1 % (1.7-9.3); % Neutrophils 63.3 % (42.2-75.2); Absolute Eosinophils 0.2 10^3/uL (0-0.7); Absolute Immature Granulocytes 0.1 10^3/uL (0-0.05); Absolute Monocytes 0.6 10^3/uL (0.1-0.6); Absolute Neutrophils 3.1 10^3/uL (1.4-6.5); Hematocrit 34.5 % (39.0-52.0); Hemoglobin 11.5 g/dL (13.0-18.0); Mean Corp Hgb Conc. 33.3 g/dL (33.0-37.0); Mean Corpuscular Volume 96.1 fL (80.0-94.0); Mean Platelet Volume 8.9 fL (7.4-10.4); Nucleated Red Blood Cells % 0 % (-); Platelet Count 358 10^3/uL (130-400); Red Blood Cell Count 3.59 10^6/uL (4.70-6.10); Red Cell Dist. Width 14.2 % (11.5-14.5)
[2024-04-06] MEDS: DUONEB 3 ML INH (07:59)
[2024-04-06 08:32] LABS: Blood Urea Nitrogen 26 mg/dl (9-20); Calcium 9.5 mg/dl (8.4-10.2); Carbon Dioxide 27 mmol/L (22-30); Chloride 106 mmol/L (98-107); Estimated Creatinine Clearance 92 ml/min; Glucose 79 mg/dl (70-99); Potassium 3.9 mmol/L (3.5-5.1); Sodium 141 mmol/L (135-145); eGFR > 60.00
[2024-04-06] MEDS: TOPROL XL 12.5 MG PO (09:20)
[2024-04-06] MEDS: FOLVITE 0.8 MG PO (09:23)
[2024-04-06] MEDS: VIBRAMYCIN 100 MG PO (09:23)
[2024-04-06] MEDS: LIPITOR 40 MG PO (09:27)
[2024-04-06] MEDS: FLOMAX 0.4 MG PO (09:28)
[2024-04-06] MEDS: FLUSH (NSS) 2 FLUSH IV ×2 (09:28→12:56)
[2024-04-06] MEDS: SOLU-MEDROL PF 40 MG IV (09:28)
[2024-04-06] MEDS: VITAMIN D3 (cholecalciferol) 25 MCG PO (09:28)
[2024-04-06] MEDS: ASPIR LOW (ENTERIC COATED) 81 MG PO (09:28)
[2024-04-06] MEDS: REFRESH EYE DROPS (PF) 1 DROPS BOTH EYES (09:28)
[2024-04-06] MEDS: NON-FORMULARY ITEM 120 MG PO (09:29)
[2024-04-06] MEDS: DESENEX/MITRAZOL/ZEASORB 1 APPLIC TOPICAL (09:30)
--- NOTE | 2024-04-06 10:31 | W.PN.PUL.V3 ---
Today's Communication / Plan
-
.
Change methylprednisolone to prednisone with fairly rapid taper.
Outpatient pulmonary follow-up with radiographs to ensure clearing.
Outpatient oncological follow-up as well
Assessment
-
Patient is an 78-year-old male with previous history of CAD, hypertension, myotonic dystrophy presenting to ER with shortness of breath and desaturation at home. Reportedly saturations were 88% on room air and with exertion was in the low 80s.
He was hospitalized back in October for community acquired pneumonia and required oxygen supplementation.
Was started on Xtandi for his 3rd line chemotherapy agent and began developing symptoms. CT chest showing bilateral interstitial process. ProBNP and procal negative.
We are asked for evaluation of abnormal CT 04/03/24.
Acute hypoxic respiratory failure
Shortness of breath
Abnormal CT Chest
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
Conditions present prior to admission:
Prostate cancer with sclerotic bone lesions
Hyperlipidemia
Hypertension
Chronic constipation
Hemorrhoids
CAD status post CABG x 3, stents x 2
Myotonic dystrophy
RLD
Plan
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
CXR/CT obtained indicating diffuse interstitial process, less likely metastatic disease though lymphangitic spread may appear this way on imaging
Xtandi has been stopped for 6 days now-only took 3 days
Clinically responding to discontinuation of medications and steroids
Repeat CT chest can be done as an outpatient
Assess for discharge supplemental oxygen needs-reportedly ambulated on room air with desaturation beata 89%-would not qualify for home oxygen
Nebulizers as needed
Hold off on bronchoscopy for now-explained rationale to him-improving
No oxygen was needed on admission, currently saturating >90% on RA
Denies history of lung disease in the past, never smoker.
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
Cultures reviewed-unrevealing
Ceftriaxone and doxycycline empirically-finite course
Continue with steroids-Methylprednisolone 40 mg IV every 12 hours-reduce to once daily and convert to prednisone 40 mg with fairly rapid taper in the next 24 hours
Aspiration precautions.
Speech therapy evaluation noted-level VII, regular solids with thin liquids
History of prostate cancer with disease to bone
Discussed case with Dr. Castrejon
Will need outpatient pulmonary evaluation in our office for PFTs and 6MWT
Diagnostic Data
CT Scan: CHEST 04/03/24- No evidence of pulmonary embolism.
Moderate patchy groundglass opacity bilaterally in the upper and lower lobes. No focal dense consolidation. There is a broad differential, which may include air trapping/small airway disease, infection (usually atypical), interstitial edema, diffuse
alveolar damage, hypersensitivity pneumonitis, and acute eosinophilic pneumonia. Other possible considerations may include aspiration or hemorrhage. In the chronic setting, consider hypersensitivity pneumonitis, nonspecific interstitial pneumonia,
desquamative interstitial pneumonia/respiratory bronchiolitis, sarcoidosis, or alveolar proteinosis.
PET/CT 02/18/24- MEDIASTINUM: No suspicious Rf64-[id number] lesions. LUNGS: No suspicious Qd18-bttu lesions.
There are multiple patent new retroperitoneal and pelvic lymphadenopathy which demonstrates Ga-68 avidity.
Gallium-68 avid osseous lesions noted as well.
Echo: 11/17/23- 1. Mild LVH with normal LV size and function with EF 61%
2. Mild to moderate MR
3. Aortic sclerosis without stenosis
4. Mild AR
Reports and relevant images were personally reviewed.
Subjective Data
-
Date of Service:
Date of Service: April 06, 2024
Chief Complaint: Pulmonary Follow Up and Dyspnea Follow Up
Subjective:
Weaned to room air, no complaints shortness of breath, overall improved, no chest pain or abdominal pain
Review of Systems
General: Other ( per HPI)
Objective Data
Data Reviewed
Vital Signs / I&O:
Vital Signs
Temp Pulse Resp BP Pulse Ox
98 F 93 16 135/64 95
12/04/24 07:53 04/06/24 09:20 04/06/24 08:01 04/06/24 09:20 04/06/24 08:01
Intake and Output
04/05/24 04/06/24 04/07/24
06:59 06:59 06:59
Intake Total 840 / 840 1180 / 1180
Balance 840 / 840 1180 / 1180
SaO2: 95
Nasal Cannula flow liters per minute: 2
Physical Exam
General: Respiratory Distress (n) and Comfortable
HEENT: Normocephalic and Anicteric
Cardiovascular: Regular Rhythm
Respiratory: Wheeze (n), Crackles, Rhonchi (n), Non-Labored Respirations, Accessory Resp Muscle Use (n) and Stridor (n)
GI: Soft, Non Distended and Non Tender
Neurology: Awake, Alert and Other ( muscular dystrophy)
Labs/Micro/Reports
Lab Data
04/06/24 07:39
04/06/24 07:39
Microbiology
04/03/24 17:03 Urine Legionella Urinary Antigen - Final
Negative for Legionella pneumophila Serogroup 1 antigen.
A negative result does not rule out the possiblity of
Legionella infection due to other serogroups or species of
Legionella. Clinical correlation is recommended.
04/03/24 17:03 Urine Streptococcus pneumoniae Antigen (M - Final
Negative for Streptococcus pneumoniae antigen.
A negative result does not exclude infection with
Streptococcus pneumoniae. Clinical correlation is
recommended.
04/03/24 11:21 Nasal Swab Influenza Types A & B (ZAIN) - Final
Negative for Influenza A & B, NAAT
Negative results must be combined with clinical observations
and patient history.
Nucleic Acid Amplification test (NAAT)performed on the
[address] platform.
--- NOTE | 2024-04-06 12:06 | W.PN.HOSP.TC ---
Addendum entered and electronically signed by Santi Grijalva MD 04/06/24 12:56:
moderate protein calorie malnutrition of chronic illness.'
Addendum entered and electronically signed by Santi Grijalva MD 04/06/24 12:55:
95% room air rest- 91% room air ambulated 200 feet-did not qualify for home oxygen
Original Note:
Today's Communication/Plan
-
prednisone quick taper
Op pulm f/u
HOME 02 Eval pending
Assessment / Plan
Assessment / Plan
General: Well Nourished, No Apparent Distress and Comfortable
HEENT: NormoCephalic, Anicteric and Moist mucous membranes
Respiratory: Dec bs, with mild dry crackles heard
Cardiac: S1/S2 and Regular Rhythm; No Murmur
GI: Soft, Non Tender and Non Distended
Genito-urinary: No costovertebral tender
Musculoskeletal: No Clubbing, No Cyanosis and No Edema
Skin: Warm
Neuro: Awake, Alert, Oriented and AO x 3
Psych: Calm
A/P:
#Acute hypoxic respiratory failure, suspect pneumonitis, possibly drug induced vs. low likelihood of pna.
CT showed ground glass opacity, Velcro-like crackles on auscultation
Check procalcitonin
Started on Abx in ED - reasonable to cont however, procal negative. completed 5d course.
Check Legionella and S.Pneumonia Ag-negative
COVID/FLU negative
Steroids in view of recent CA treatment change.
Improvement noted with discontinuation of medication xTANDI
No plan for bronchoscopy for now
Duoneb
Pulm consult
Symptomatically patient improved significantly and no need for repeat CT chest. Pulmonary correspondence noted. Solu-Medrol decreased to 40 mg daily. Quick steroid taper on discharge.
Home O2 eval pending
#mild anemia
#mild leukopenia
follow CBC
#Prostate CA with osseous mets and R hydroureter with progression
#BPH
follow Cr
watch for urinary retention
Hematology consult-OP f/u
#CAD s/p CABG
#Essential HTN
#HLD
Patient with soft blood pressure at times. DC lisinopril.
Trop 0.022
ProBNP 667 - less then on previous admission
Myotonic dystrophy
RLD
DVt ppx on Lovenox
Full code
PT/OT-Home VN
Anticipated Discharge: Today
Subjective/Interval History
-
Date of Service: April 06, 2024
seen on room air this morning
states breathing has improved alot
Objective Data
-
Labs:
Laboratory Results
04/06/24
07:39
WBC 5.0
Hgb 11.5 L
Hct 34.5 L
Plt Count 358
Sodium 141
Potassium 3.9
Chloride 106
Carbon Dioxide 27
BUN 26 H
Creatinine 0.6 L
Glucose 79
Calcium 9.5
Vital Signs:
Vital Signs
Temp Pulse Resp BP Pulse Ox
98 F 93 16 135/64 95
04/06/24 07:53 04/06/24 09:20 04/06/24 08:01 04/06/24 09:20 04/06/24 10:31
I&O
04/05/24 04/06/24 04/07/24
06:59 06:59 06:59
Intake Total 840 / 840 1180 / 1180
Balance 840 / 840 1180 / 1180
--- NOTE | 2024-04-06 12:14 | W.DCSUMMARY ---
Discharge Summary
Discharge Data
Date of Admission: 04/03/24
Date of Discharge: 04/06/24
-
Pending Results: No
Hospital Course
78-year-old male with previous history of CAD, hypertension, myotonic dystrophy, prostate cancer, CAD status post CABG, hyperlipidemia, to ER with shortness of breath and hypoxemia at home. Patient has been receiving Xtandi chemotherapy regimen
for his prostate cancer. Patient was found to be in acute hypoxic respiratory failure. Patient was started on antibiotics. Patient underwent CT of the chest which showed No evidence of pulmonary embolism. Moderate patchy groundglass opacity
bilaterally in the upper and lower lobes. No focal dense consolidation. There is a broad differential, which may include air trapping/small airway disease, infection (usually atypical), interstitial edema, diffuse alveolar damage, hypersensitivity
pneumonitis, and acute eosinophilic pneumonia. Other possible considerations may include aspiration or hemorrhage. In the chronic setting, consider hypersensitivity pneumonitis, nonspecific interstitial pneumonia, desquamative interstitial
pneumonia/respiratory bronchiolitis, sarcoidosis, or alveolar proteinosis. Patient was started on high-dose of IV Decadron. Pulmonary and oncology was consulted. Patient was only be able to wean off oxygenation. Patient with soft blood pressure
lisinopril was discontinued. Patient was significant improvement with IV steroids. Antibiotics will be transitioned to p.o. antibiotics on discharge. IV Decadron with transition to p.o. prednisone quick taper regimen on discharge. Patient was
ambulating in the hallway without any difficulty. Patient did not qualify for home oxygenation. Patient was recommend to follow-up outpatient with pulmonary and oncology.
Discharge Plan
-
Patient Disposition: Home (Routine Discharge)
Discharge Diagnosis/Procedures: Acute hypoxic respiratory failure, suspect pneumonitis, possibly drug induced vs. low likelihood of pneumonia
Condition: Fair
Diet: As tolerated
Activity: With assistance and As tolerated
Driving Restrictions: As prior to admission
Referrals:
Eber Franco MD [Active] - in one to two weeks (Spirometry. 6 minute walk test)
Notte,Linda K., DO [Family Provider] - in less than 1 week
Additional Discharge Medication Instructions: Lisinopril was discontinued.
Prescriptions:
New
doxycycline hyclate 100 mg Capsule
100 mg PO Q12 2 Days Qty: 4 0RF
cefdinir 300 mg capsule
300 mg PO Q12H Qty: 4 0RF
prednisone 10 mg Tablet
See Rx Instructions .ROUTE .COMPLEX Qty: 30 0RF
Rx Instructions:
Take By Mouth:
40 mg daily x3 days, 30 mg daily x3 days,
20 mg daily x3 days, 10 mg daily x3 days.
Continued
aspirin 81 MG tablet,delayed release (DR/EC)
81 mg PO DAILY
atorvastatin 40 mg tablet
40 mg PO QPM
tamsulosin 0.4 mg Capsule
0.4 mg PO BID Qty: 60 0RF
cholecalciferol (vitamin D3) [Vitamin D3] 10 mcg (400 unit) Tablet
25 mcg PO DAILY
folic acid 0.8 mg Capsule
0.8 mg PO DAILY
Orgovyx 120 mg Tablet
120 mg PO DAILY
polyethylene glycol 3350 [Miralax] 17 gram Powder In Packet
17 g PO DAILYPRN PRN (Reason: constipation)
metoprolol succinate [Toprol XL] 50 mg Tablet Extended Release 24 Hr
12.5 mg PO DAILY
bisacodyl [Dulcolax (bisacodyl)] 5 mg Tablet,Delayed Release (Dr/Ec)
15 mg PO DAILYPRN PRN (Reason: constipation)
Systane (PF) 0.4-0.3 % Dropperette
1 drp BOTH EYES DAILY
Xgeva 120 mg/1.7 mL (70 mg/mL) Solution
120 mg SC Q4W
Discontinued
lisinopril 5 mg Tablet
5 mg PO DAILY
Discharge Orders:
Discharge Patient (As Directed); Ordered 04/06/24
Ordered By: Santi Grijalva
Discharge Date and Time
Print Language: OCCITAN
[2024-04-06] MEDS: DUONEB INH ×2 (12:16→15:25)
[2024-04-06] MEDS: ROCEPHIN 1000 MG IV (12:56)
[2024-04-06] MEDS: STERILE WATER FOR INJECTION 10 ML IV (12:56)
--- NOTE | 2024-04-06 13:46 | CM ---
Per hospitalist, pt is medically stable for d/c
Met w/ pt bedside, agreeable to d/c.
No home O2 needs per eval completed this morning
No rehab needs per PT as pt is back to PLOF
IMM reviewed, pt given copy. Copy placed in chart
Per pt, son will transport at d/c
No other needs identified at this time
Plan: Home; no needs
== END 2024-04-06 15:53 | disposition home or self-care (01) | DRG 205 ==
LOC: 4 EAST ACU 12:03
PROVIDERS: ADMITTING PHYSICIAN Internal Medicine; ATTENDING PHYSICIAN Hospitalist; CONSULT PHYSICIAN Internal Medicine; CONSULT PHYSICIAN Internal Medicine Hematology & Oncology; EMERGENCY PHYSICIAN Emergency Medicine; FAMILY PHYSICIAN Family Medicine
DX: J68.0 Bronchitis and pneumonitis due to chemicals, gases, fumes and vapors (principal); J96.01 Acute respiratory failure with hypoxia; N13.4 Hydroureter; C79.51 Secondary malignant neoplasm of bone; E44.0 Moderate protein-calorie malnutrition; J18.9 Pneumonia, unspecified organism; D64.9 Anemia, unspecified; N40.0 Benign prostatic hyperplasia without lower urinary tract symptoms; C61 Malignant neoplasm of prostate; I10 Essential (primary) hypertension; Z68.29 Body mass index [BMI] 29.0-29.9, adult; Z11.52 Encounter for screening for COVID-19
CPT/HCPCS: 71046; 71275; 80048; 80053; 83880; 84145; 84484; 85025; 85027; 87449; 87502; 87811; 87899; 92610; 93005; 94640; 96365; 96375; 97162; 97166; 97530; 99285; Q9967

== ENCOUNTER → 2024-04-12 09:48 | Outpatient (REF) | payer MEDICARE, OTHER, SELFPAY ==
[2024-04-12 12:36] LABS: % Basophils 0.4 % (0-2); % Eosinophils 0.8 % (0-6); % Immature Granulocytes 1.7 % (0-0.5); % Lymphocytes 15.4 % (20.5-51.1); % Monocytes 7.7 % (1.7-9.3); Absolute Eosinophils 0.1 10^3/uL (0-0.7); Absolute Immature Granulocytes 0.1 10^3/uL (0-0.05); Absolute Lymphocytes 1.3 10^3/uL (1.2-3.4); Absolute Monocytes 0.7 10^3/uL (0.1-0.6); Absolute Neutrophils 6.2 10^3/uL (1.4-6.5); Hematocrit 37.2 % (39.0-52.0); Hemoglobin 12.8 g/dL (13.0-18.0); Mean Corp Hgb Conc. 34.4 g/dL (33.0-37.0); Mean Corpuscular Hgb 33.2 pg (27.0-31.0); Mean Corpuscular Volume 96.6 fL (80.0-94.0); Mean Platelet Volume 9.7 fL (7.4-10.4); Nucleated Red Blood Cells % 0 % (-); Platelet Count 368 10^3/uL (130-400); Red Blood Cell Count 3.85 10^6/uL (4.70-6.10); Red Cell Dist. Width 14.4 % (11.5-14.5); White Blood Cell Count 8.4 10^3/uL (4.8-10.8)
[2024-04-12 12:58] LABS: Blood Urea Nitrogen 19 mg/dl (9-20); Calcium 9.9 mg/dl (8.4-10.2); Carbon Dioxide 27 mmol/L (22-30); Chloride 104 mmol/L (98-107); Glucose 104 mg/dl (70-99); Potassium 4.3 mmol/L (3.5-5.1); Sodium 138 mmol/L (135-145); eGFR > 60.00
[2024-04-12 13:27] LABS: PSA, Total - Diagnostic 5.27 ng/ml (0.0-4.0)
== END ==
LOC: HWLAB 09:48
PROVIDERS: ATTENDING PHYSICIAN Internal Medicine Hematology & Oncology; FAMILY PHYSICIAN Family Medicine
DX: C61 Malignant neoplasm of prostate (principal); C79.51 Secondary malignant neoplasm of bone; G89.3 Neoplasm related pain (acute) (chronic)
CPT/HCPCS: 36415; 80048; 84153; 85025

== ENCOUNTER → 2024-05-13 07:57 | Outpatient (REF) | payer MEDICARE, OTHER, SELFPAY ==
[2024-05-13 12:26] LABS: % Basophils 0.5 % (0-2); % Eosinophils 2.1 % (0-6); % Immature Granulocytes 0.3 % (0-0.5); % Lymphocytes 35.3 % (20.5-51.1); % Monocytes 9.3 % (1.7-9.3); % Neutrophils 52.5 % (42.2-75.2); Absolute Eosinophils 0.1 10^3/uL (0-0.7); Absolute Lymphocytes 2.2 10^3/uL (1.2-3.4); Absolute Monocytes 0.6 10^3/uL (0.1-0.6); Absolute Neutrophils 3.2 10^3/uL (1.4-6.5); Hematocrit 36.9 % (39.0-52.0); Hemoglobin 12.3 g/dL (13.0-18.0); Mean Corp Hgb Conc. 33.3 g/dL (33.0-37.0); Mean Corpuscular Hgb 33.2 pg (27.0-31.0); Mean Corpuscular Volume 99.5 fL (80.0-94.0); Mean Platelet Volume 9.8 fL (7.4-10.4); Nucleated Red Blood Cells % 0 % (-); Platelet Count 305 10^3/uL (130-400); Red Blood Cell Count 3.71 10^6/uL (4.70-6.10); Red Cell Dist. Width 13.8 % (11.5-14.5); White Blood Cell Count 6.1 10^3/uL (4.8-10.8)
[2024-05-13 12:53] LABS: ALT (SGPT) 13 U/L (0-50); AST (SGOT) 26 U/L (17-59); Albumin 3.8 g/dl (3.5-5.0); Alkaline Phosphatase 71 U/L (38-126); Blood Urea Nitrogen 20 mg/dl (9-20); Carbon Dioxide 27 mmol/L (22-30); Chloride 105 mmol/L (98-107); Direct Bilirubin 0.1 mg/dl (0.0-0.4); Glucose 100 mg/dl (70-99); Potassium 3.8 mmol/L (3.5-5.1); Sodium 139 mmol/L (135-145); Total Bilirubin 0.9 mg/dl (0.2-1.3); Total Protein 6.3 g/dl (6.3-8.2); eGFR > 60.00
[2024-05-13 13:09] LABS: PSA, Total - Diagnostic 1.17 ng/ml (0.0-4.0)
== END ==
LOC: HWRAD 07:57
PROVIDERS: ATTENDING PHYSICIAN Nurse Practitioner Family; FAMILY PHYSICIAN Family Medicine; REFERRING PHYSICIAN Internal Medicine Hematology & Oncology
DX: R93.89 Abnormal findings on diagnostic imaging of other specified body structures (principal); C61 Malignant neoplasm of prostate; G89.3 Neoplasm related pain (acute) (chronic); C79.51 Secondary malignant neoplasm of bone; R97.21 Rising PSA following treatment for malignant neoplasm of prostate
CPT/HCPCS: 36415; 71250; 80053; 82248; 84153; 85025

== ENCOUNTER → 2024-06-14 08:27 | Outpatient (REF) | payer MEDICARE, OTHER, SELFPAY ==
[2024-06-14 10:10] LABS: % Basophils 0.7 % (0-2); % Eosinophils 4.7 % (0-6); % Immature Granulocytes 0.5 % (0-0.5); % Lymphocytes 34.7 % (20.5-51.1); % Monocytes 9.4 % (1.7-9.3); Absolute Eosinophils 0.3 10^3/uL (0-0.7); Absolute Monocytes 0.5 10^3/uL (0.1-0.6); Absolute Neutrophils 2.9 10^3/uL (1.4-6.5); Hematocrit 36.6 % (39.0-52.0); Hemoglobin 12.3 g/dL (13.0-18.0); Mean Corp Hgb Conc. 33.6 g/dL (33.0-37.0); Mean Corpuscular Hgb 32.7 pg (27.0-31.0); Mean Corpuscular Volume 97.3 fL (80.0-94.0); Nucleated Red Blood Cells % 0 % (-); Platelet Count 313 10^3/uL (130-400); Red Blood Cell Count 3.76 10^6/uL (4.70-6.10); Red Cell Dist. Width 12.4 % (11.5-14.5); White Blood Cell Count 5.8 10^3/uL (4.8-10.8)
[2024-06-14 11:17] LABS: ALT (SGPT) 12 U/L (0-50); AST (SGOT) 23 U/L (17-59); Albumin 3.7 g/dl (3.5-5.0); Alkaline Phosphatase 61 U/L (38-126); Blood Urea Nitrogen 23 mg/dl (9-20); Calcium 9.7 mg/dl (8.4-10.2); Carbon Dioxide 27 mmol/L (22-30); Chloride 105 mmol/L (98-107); Glucose 107 mg/dl (70-99); Potassium 4.3 mmol/L (3.5-5.1); Sodium 138 mmol/L (135-145); Total Bilirubin 0.9 mg/dl (0.2-1.3); Total Protein 6.1 g/dl (6.3-8.2); eGFR > 60.00
[2024-06-14 11:26] LABS: PSA, Total - Diagnostic 2.43 ng/ml (0.0-4.0)
== END ==
LOC: HWLAB 08:27
PROVIDERS: ATTENDING PHYSICIAN Internal Medicine Hematology & Oncology; FAMILY PHYSICIAN Family Medicine
DX: C61 Malignant neoplasm of prostate (principal); G89.3 Neoplasm related pain (acute) (chronic); C79.51 Secondary malignant neoplasm of bone; R97.21 Rising PSA following treatment for malignant neoplasm of prostate
CPT/HCPCS: 36415; 80053; 84153; 85025

== ENCOUNTER → 2024-07-13 08:35 | Outpatient (REF) | payer MEDICARE, OTHER, SELFPAY ==
[2024-07-13 09:38] LABS: % Basophils 0.1 % (0-2); % Eosinophils 3.6 % (0-6); % Immature Granulocytes 0.6 % (0-0.5); % Lymphocytes 19.3 % (20.5-51.1); % Monocytes 10.5 % (1.7-9.3); % Neutrophils 65.9 % (42.2-75.2); Absolute Eosinophils 0.3 10^3/uL (0-0.7); Absolute Immature Granulocytes 0.1 10^3/uL (0-0.05); Absolute Lymphocytes 1.6 10^3/uL (1.2-3.4); Absolute Monocytes 0.9 10^3/uL (0.1-0.6); Absolute Neutrophils 5.6 10^3/uL (1.4-6.5); Hematocrit 37.9 % (39.0-52.0); Hemoglobin 12.8 g/dL (13.0-18.0); Mean Corp Hgb Conc. 33.8 g/dL (33.0-37.0); Mean Corpuscular Hgb 32.7 pg (27.0-31.0); Mean Corpuscular Volume 96.9 fL (80.0-94.0); Mean Platelet Volume 9.6 fL (7.4-10.4); Nucleated Red Blood Cells % 0 % (-); Platelet Count 317 10^3/uL (130-400); Red Blood Cell Count 3.91 10^6/uL (4.70-6.10); Red Cell Dist. Width 12.7 % (11.5-14.5); White Blood Cell Count 8.4 10^3/uL (4.8-10.8)
[2024-07-13 10:59] LABS: ALT (SGPT) 10 U/L (0-50); AST (SGOT) 19 U/L (17-59); Alkaline Phosphatase 61 U/L (38-126); Blood Urea Nitrogen 55 mg/dl (9-20); Calcium 9.8 mg/dl (8.4-10.2); Carbon Dioxide 24 mmol/L (22-30); Chloride 99 mmol/L (98-107); Glucose 109 mg/dl (70-99); Sodium 133 mmol/L (135-145); Total Bilirubin 1.2 mg/dl (0.2-1.3); Total Protein 6.5 g/dl (6.3-8.2); eGFR > 60.00
== END ==
LOC: HWLAB 08:35
PROVIDERS: ATTENDING PHYSICIAN Internal Medicine Hematology & Oncology; FAMILY PHYSICIAN Family Medicine
DX: C61 Malignant neoplasm of prostate (principal); G89.3 Neoplasm related pain (acute) (chronic); C79.51 Secondary malignant neoplasm of bone; R97.21 Rising PSA following treatment for malignant neoplasm of prostate
CPT/HCPCS: 36415; 80053; 84153; 85025

== ENCOUNTER → 2024-07-25 10:58 | Outpatient (REF) | payer MEDICARE, OTHER, SELFPAY ==
[2024-07-25 17:23] LABS: % Basophils 0.6 % (0-2); % Eosinophils 1.4 % (0-6); % Immature Granulocytes 0.5 % (0-0.5); % Lymphocytes 17.9 % (20.5-51.1); % Monocytes 8.5 % (1.7-9.3); % Neutrophils 71.1 % (42.2-75.2); Absolute Basophils 0.1 10^3/uL (0-0.2); Absolute Eosinophils 0.1 10^3/uL (0-0.7); Absolute Lymphocytes 1.5 10^3/uL (1.2-3.4); Absolute Monocytes 0.7 10^3/uL (0.1-0.6); Absolute Neutrophils 6.1 10^3/uL (1.4-6.5); Hematocrit 35.9 % (39.0-52.0); Hemoglobin 12.1 g/dL (13.0-18.0); Mean Corp Hgb Conc. 33.7 g/dL (33.0-37.0); Mean Corpuscular Hgb 32.6 pg (27.0-31.0); Mean Corpuscular Volume 96.8 fL (80.0-94.0); Nucleated Red Blood Cells % 0 % (-); Platelet Count 343 10^3/uL (130-400); Red Blood Cell Count 3.71 10^6/uL (4.70-6.10); Red Cell Dist. Width 12.5 % (11.5-14.5); White Blood Cell Count 8.6 10^3/uL (4.8-10.8)
[2024-07-25 17:34] LABS: ALT (SGPT) 13 U/L (0-50); AST (SGOT) 23 U/L (17-59); Albumin 4.1 g/dl (3.5-5.0); Alkaline Phosphatase 65 U/L (38-126); Blood Urea Nitrogen 48 mg/dl (9-20); Calcium 10.1 mg/dl (8.4-10.2); Carbon Dioxide 25 mmol/L (22-30); Chloride 103 mmol/L (98-107); Glucose 101 mg/dl (70-99); Potassium 4.5 mmol/L (3.5-5.1); Sodium 137 mmol/L (135-145); Total Bilirubin 0.6 mg/dl (0.2-1.3); Total Protein 6.5 g/dl (6.3-8.2); eGFR > 60.00
== END ==
LOC: HWCARD 10:58
PROVIDERS: ATTENDING PHYSICIAN Internal Medicine Hematology & Oncology; FAMILY PHYSICIAN Family Medicine
DX: C61 Malignant neoplasm of prostate (principal); G89.3 Neoplasm related pain (acute) (chronic); C79.51 Secondary malignant neoplasm of bone; R97.21 Rising PSA following treatment for malignant neoplasm of prostate
CPT/HCPCS: 36415; 80053; 84153; 85025

== ENCOUNTER → 2024-08-24 08:53 | Outpatient (REF) | payer MEDICARE, OTHER, SELFPAY ==
[2024-08-24 11:53] LABS: % Basophils 0.6 % (0-2); % Eosinophils 2.4 % (0-6); % Immature Granulocytes 0.3 % (0-0.5); % Lymphocytes 26.5 % (20.5-51.1); % Monocytes 10.6 % (1.7-9.3); % Neutrophils 59.6 % (42.2-75.2); Absolute Eosinophils 0.2 10^3/uL (0-0.7); Absolute Lymphocytes 1.8 10^3/uL (1.2-3.4); Absolute Monocytes 0.7 10^3/uL (0.1-0.6); Hematocrit 35.2 % (39.0-52.0); Hemoglobin 12.2 g/dL (13.0-18.0); Mean Corp Hgb Conc. 34.7 g/dL (33.0-37.0); Mean Corpuscular Hgb 33.1 pg (27.0-31.0); Mean Corpuscular Volume 95.4 fL (80.0-94.0); Mean Platelet Volume 9.3 fL (7.4-10.4); Nucleated Red Blood Cells % 0 % (-); Platelet Count 276 10^3/uL (130-400); Red Blood Cell Count 3.69 10^6/uL (4.70-6.10); Red Cell Dist. Width 14.2 % (11.5-14.5); White Blood Cell Count 6.7 10^3/uL (4.8-10.8)
[2024-08-24 12:13] LABS: ALT (SGPT) 14 U/L (0-50); AST (SGOT) 27 U/L (17-59); Albumin 3.9 g/dl (3.5-5.0); Alkaline Phosphatase 47 U/L (38-126); Blood Urea Nitrogen 39 mg/dl (9-20); Calcium 9.5 mg/dl (8.4-10.2); Carbon Dioxide 21 mmol/L (22-30); Chloride 107 mmol/L (98-107); Glucose 118 mg/dl (70-99); Sodium 139 mmol/L (135-145); Total Protein 6.3 g/dl (6.3-8.2); eGFR > 60.00
== END ==
LOC: HWLAB 08:53
PROVIDERS: ATTENDING PHYSICIAN Internal Medicine Hematology & Oncology; FAMILY PHYSICIAN Family Medicine
DX: C61 Malignant neoplasm of prostate (principal); G89.3 Neoplasm related pain (acute) (chronic); C79.51 Secondary malignant neoplasm of bone; R97.21 Rising PSA following treatment for malignant neoplasm of prostate
CPT/HCPCS: 36415; 80053; 84153; 85025

== ENCOUNTER → 2024-09-20 10:15 | Outpatient (REF) | payer MEDICARE, OTHER, SELFPAY ==
[2024-09-20 11:58] LABS: % Basophils 0.8 % (0-2); % Eosinophils 2.4 % (0-6); % Immature Granulocytes 0.3 % (0-0.5); % Lymphocytes 22.7 % (20.5-51.1); % Monocytes 10.2 % (1.7-9.3); % Neutrophils 63.6 % (42.2-75.2); Absolute Basophils 0.1 10^3/uL (0-0.2); Absolute Eosinophils 0.2 10^3/uL (0-0.7); Absolute Lymphocytes 1.5 10^3/uL (1.2-3.4); Absolute Monocytes 0.7 10^3/uL (0.1-0.6); Absolute Neutrophils 4.2 10^3/uL (1.4-6.5); Hematocrit 34.3 % (39.0-52.0); Hemoglobin 11.4 g/dL (13.0-18.0); Mean Corp Hgb Conc. 33.2 g/dL (33.0-37.0); Mean Corpuscular Hgb 32.5 pg (27.0-31.0); Mean Corpuscular Volume 97.7 fL (80.0-94.0); Mean Platelet Volume 9.5 fL (7.4-10.4); Nucleated Red Blood Cells % 0 % (-); Platelet Count 349 10^3/uL (130-400); Red Blood Cell Count 3.51 10^6/uL (4.70-6.10); Red Cell Dist. Width 14.6 % (11.5-14.5); White Blood Cell Count 6.6 10^3/uL (4.8-10.8)
[2024-09-20 12:13] LABS: ALT (SGPT) 14 U/L (0-50); AST (SGOT) 26 U/L (17-59); Albumin 3.8 g/dl (3.5-5.0); Alkaline Phosphatase 48 U/L (38-126); Blood Urea Nitrogen 21 mg/dl (9-20); Calcium 9.3 mg/dl (8.4-10.2); Carbon Dioxide 22 mmol/L (22-30); Chloride 109 mmol/L (98-107); Glucose 137 mg/dl (70-99); Potassium 3.8 mmol/L (3.5-5.1); Sodium 141 mmol/L (135-145); Total Bilirubin 0.7 mg/dl (0.2-1.3); Total Protein 6.2 g/dl (6.3-8.2); eGFR > 60.00
== END ==
LOC: HWLAB 10:15
PROVIDERS: ATTENDING PHYSICIAN Internal Medicine Hematology & Oncology; FAMILY PHYSICIAN Family Medicine
DX: C61 Malignant neoplasm of prostate (principal); G89.3 Neoplasm related pain (acute) (chronic); C79.51 Secondary malignant neoplasm of bone; R97.21 Rising PSA following treatment for malignant neoplasm of prostate
CPT/HCPCS: 36415; 80053; 84153; 85025

== ENCOUNTER → 2024-09-22 15:16 | Outpatient (REF) | payer MEDICARE, OTHER, SELFPAY ==
[2024-09-22 15:56] LABS: Urine Albumin 3+ (Neg - Trace); Urine Bilirubin Negative (Negative); Urine Character Slightly Cloudy (Clear); Urine Glucose Negative (Negative); Urine Ketone Negative (Negative); Urine Leukocyte 1+ (Negative); Urine Nitrite Positive (Negative); Urine Occult Blood 4+ (Negative); Urine Specific Gravity 1.015 (<1.030); Urine Urobilinogen 1+ (Neg - 1+)
[2024-09-22 16:02] LABS: Urine Squamous Cell 0-2 /LPF (Few)
[2024-09-22 16:03] LABS: Urine Red Blood Cell >100 /HPF (0-2)
[2024-09-22 16:04] LABS: Urine Bacteria Moderate (Negative)
== END ==
LOC: OIDL 15:16
PROVIDERS: ATTENDING PHYSICIAN Internal Medicine Hematology & Oncology
DX: C61 Malignant neoplasm of prostate (principal); G89.3 Neoplasm related pain (acute) (chronic); R97.21 Rising PSA following treatment for malignant neoplasm of prostate; C79.51 Secondary malignant neoplasm of bone
CPT/HCPCS: 81003; 81015

== ENCOUNTER 2024-09-27 14:48 | Inpatient (IN) | payer MEDICARE, OTHER, SELFPAY ==
[2024-09-27] VITALS (10 sets, daily range): BP systolic 86–135; BP diastolic 58–79; BMI 32.0
--- NOTE | 2024-09-27 09:50 | ED.GENMED ---
History of Present Illness
General
Chief Complaint: Weakness
Time Seen by Provider: 09/27/24 09:49
History of Present Illness
History of Present Illness:
TIME OF INITIAL ENCOUNTER: 9:50 AM
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 Last week he started having gross hematuria. He states that he is on baby aspirin and is allergic to Plavix. He is not on any anticoagulation. He has been feeling weaker.
He has been falling more recently. He also is concerned of rather significant left thigh pain. He is on narcotic analgesia which leads to constipation and is taking something to help prevent constipation in this morning range more recently having
loose stool. He is known to Dr. Pearson and to Dr. Tam
EXAM:
GENERAL: The patient appears chronically ill and weak and debilitated
HEENT: Moist oral mucosa
CARDIOVASCULAR: No murmurs, normal heart rate, regular rhythm, No chest wall tenderness
PULMONARY: No respiratory distress, breath sounds are clear and equal
ABDOMEN: Soft with no peritoneal signs, no tenderness
BACK: Decreased active range of motion of the thoracolumbar spine due to pain and weakness
NEUROLOGIC: Fair strength all extremities, no coordination deficits
PSYCHIATRIC: Appropriate mental status, normal insight and judgement
EXTREMITIES: No significant tenderness but there is rather significant edema left greater than right thigh, surgical scars noted to the left lower extremity related to prior bypass however the patient states that the edema is new
SKIN: Appears pale
NUMBER AND COMPLEXITY OF PROBLEMS ADDRESSED AT THE ENCOUNTER
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
� Acute Exacerbation and/or Progression of Chronic Illness: This is an acute problem
� Differential Diagnosis includes: Progression of prostate malignancy, bladder lesion,
AMOUNT AND/OR COMPLEXITY OF DATA TO BE REVIEWED AND ANALYZED
� I performed an independent evaluation of and my interpretation is:
EKG:
CT:
X-rays:
Laboratory Studies: White count 5.3, hemoglobin 9.8 which is slightly lower than prior, chemistries unremarkable however potassium not resulted due to hemolysis
Other: No evidence of DVT based on ultrasound imaging
� Review of other/old records: The patient was admitted here in April 2020 for and at that time was started on IV Decadron related to CT imaging that showed groundglass opacities and required oxygen. He had no PE at that time.
� Clinical information was obtained by an independent historian: I spoke to and son at bedside
� Prescriptions/Medications Considered but not given:
� Further testing considered but not performed:
RISK OF COMPLICATIONS AND/OR MORBIDITY OR MORTALITY OF PATIENT MANAGEMENT
� Social determinants of health affecting care: Lives at home
� Discussion with other providers: I initially notified Dr. Tam who happened to be here for another patient who recommended checking bladder scan. Notified Dr. Finley as well. Hospitalist, Dr. Messina for admission.
� Escalation of care including admission/observation vs risk of discharge considered: Bladder scan greater than 800 mL of urine. Placed three-way catheter and initially there was no significant drainage therefore the nurse
manually irrigated. Very dark bloody urine noted. Starting CBI. The patient's hemoglobin dropped. He appears very weak and debilitated.
ANY OTHER UPDATES:
Past History
Past History
ED Past Medical History: CAD, HTN and Other (Myotonic dystrophy)
ED Past Surgical History: Cardiac (cabg x 3, stents x 2)
Social History
Tobacco: Non-smoker
Alcohol: None
Drug: None
Personal:
Living: with family
Phy Exam
Physical Exam
Physical Exam:
See HPI
Course
Orders/Labs/Results
Orders:
Orders
09/27/24 10:03
0.9% Sodium Chloride 1000 ml [Nss] 1,000 ml IV BOLUS
09/27/24 10:13
US Periph Venous LOWER Ext LT Urgent
Comment:
Reason For Exam: L thigh swelling; prostate ca
09/27/24 10:41
Basic Metabolic Panel Urgent
Complete Blood Count/With Diff Urgent
09/27/24 11:45
Urinalysis Reflex To Culture Urgent
Date Specimen was Collected: 09/27/24
Time Specimen was Collected: 11:44
Urine Microscopic Reflex Cult Urgent
09/27/24 13:03
Crow Placement- Treatment ONCE
Reason for insertion: Acute Retention
09/27/24 13:31
CBI- Treatment PRN
Solution: saline
Irrigate to Clear?: Yes
Abnormal Lab Results
09/27/24 09/27/24
10:41 11:45
RBC 2.99 L 10^6/uL
(4.70-6.10)
Hgb 9.8 L g/dL
(13.0-18.0)
Hct 29.4 L %
(39.0-52.0)
MCV 98.3 H fL
(80.0-94.0)
MCH 32.8 H pg
(27.0-31.0)
RDW 15.0 H %
(11.5-14.5)
Absolute Monos (auto) 0.7 H 10^3/uL
(0.1-0.6)
Monocytes % 12.5 H %
(1.7-9.3)
Eosinophils % 6.6 H %
(0-6)
Chloride 109 H mmol/L
(98-107)
Glucose 103 H mg/dl
(70-99)
Urine Ketones 2+ A
(Negative)
Ur Occult Blood Reflex 4+ A
(Negative)
Urine Bilirubin 1+ A
(Negative)
Urine RBC >100 A /HPF
(0-2)
Urine Albumin (Reflex) 4+ A
(Neg - Trace)
09/27/24 10:41
05/27/25 10:41
Vital Signs
Initial and Last Documented VS:
Initial Vital Signs
Pulse Resp BP Pulse Ox
98 24 86/62 98
09/27/24 09:40 09/27/24 09:40 09/27/24 09:40 09/27/24 09:40
Last Documented Vital Signs
Temp Pulse Resp BP Pulse Ox
36.7 C 107 16 111/60 97
09/27/24 10:30 09/27/24 11:45 09/27/24 11:45 09/27/24 11:01 09/27/24 11:30
*Critical Care Note
Total Time (30-74mins, 75-104mins- exclusive of procedures): Not Applicable
ED Attending Note
-
Portions of this chart may have been created with voice recognition software.� Occasional wrong word or��sound alike� substitutions may have occurred due to the inherent limitations of voice recognition software.
Discharge Plan
Departure
Patient Disposition: Admit
Date of Disposition: 09/27/24
Time of Disposition: 13:36
Presentation/result/management discussed w/ accepting MD/DO: Hospitalist
Discharge Problem:
Acute urinary retention
Prescriptions:
No Action
aspirin 81 MG tablet,delayed release (DR/EC)
81 mg PO DAILY
atorvastatin 40 mg tablet
40 mg PO QPM
tamsulosin 0.4 mg Capsule
0.4 mg PO BID Qty: 60 0RF
cholecalciferol (vitamin D3) [Vitamin D3] 10 mcg (400 unit) Tablet
25 mcg PO DAILY
folic acid 0.8 mg Capsule
0.8 mg PO DAILY
Orgovyx 120 mg Tablet
120 mg PO DAILY
polyethylene glycol 3350 [Miralax] 17 gram Powder In Packet
17 g PO BID
bisacodyl [Dulcolax (bisacodyl)] 5 mg Tablet,Delayed Release (Dr/Ec)
5 mg PO BID
Xgeva 120 mg/1.7 mL (70 mg/mL) Solution
120 mg SC Q4W
metoprolol succinate [Toprol XL] 25 mg Tablet Extended Release 24 Hr
12.5 mg PO DAILY
Referrals:
Linda Ng, DO [Family Provider] -
Interventions
Interventions:
*Risk Screen - Suicide Last Done: 09/27/24 09:40
*General Assessment Last Done: 09/27/24 10:24
*Neglect/Abuse Screening Last Done: 09/27/24 09:40
*ED- Fall Risk Assessment Last Done: 09/27/24 10:24
*ED COVID-19 Vaccine History Last Done: 09/27/24 10:24
ED- Cardiac Assessment Last Done: 09/27/24 10:25
ED- Neurological Assessment Last Done: 09/27/24 10:25
ED- Pulmonary Assessment Last Done: 09/27/24 10:25
Discharge Date and Time
Print Language: GEORGIAN
--- NOTE | 2024-09-27 09:55 | EDRN ---
Dr. Morelos in room w/pt.
--- NOTE | 2024-09-27 10:27 | EDRN ---
POX 92-93% on RA. Pt pale and SOB at rest w/resp rate 24, placed on O2 at 2lpm via nc at this time.
[2024-09-27 10:51] LABS: % Basophils 0.6 % (0-2); % Eosinophils 6.6 % (0-6); % Immature Granulocytes 0.4 % (0-0.5); % Lymphocytes 24.3 % (20.5-51.1); % Monocytes 12.5 % (1.7-9.3); % Neutrophils 55.6 % (42.2-75.2); Absolute Eosinophils 0.4 10^3/uL (0-0.7); Absolute Lymphocytes 1.3 10^3/uL (1.2-3.4); Absolute Monocytes 0.7 10^3/uL (0.1-0.6); Hematocrit 29.4 % (39.0-52.0); Hemoglobin 9.8 g/dL (13.0-18.0); Mean Corp Hgb Conc. 33.3 g/dL (33.0-37.0); Mean Corpuscular Hgb 32.8 pg (27.0-31.0); Mean Corpuscular Volume 98.3 fL (80.0-94.0); Mean Platelet Volume 9.7 fL (7.4-10.4); Nucleated Red Blood Cells % 0 % (-); Platelet Count 264 10^3/uL (130-400); Red Blood Cell Count 2.99 10^6/uL (4.70-6.10); White Blood Cell Count 5.3 10^3/uL (4.8-10.8)
[2024-09-27] MEDS: NSS 1000 IV (11:00)
[2024-09-27 11:03] LABS: Blood Urea Nitrogen 19 mg/dl (9-20); Calcium 9.1 mg/dl (8.4-10.2); Carbon Dioxide 25 mmol/L (22-30); Chloride 109 mmol/L (98-107); Estimated Creatinine Clearance 87 ml/min; Glucose 103 mg/dl (70-99); Sodium 138 mmol/L (135-145); eGFR > 60.00
--- NOTE | 2024-09-27 11:42 | EDRN ---
Pt OOB w/assist of 2 to commode. Pt's gait is weak.
--- NOTE | 2024-09-27 11:53 | EDRN ---
Pt needed moderate assist of 2 to get OOB to commode and back onto stretcher. Pt did not have BM but voided bright red thick bloody urine jayden [address] mL [address]/ Dr. Morelos informed.
[2024-09-27 12:32] LABS: Urine Albumin 4+ (Neg - Trace); Urine Bilirubin 1+ (Negative); Urine Glucose Negative (Negative); Urine Ketone 2+ (Negative); Urine Leukocyte Negative (Negative); Urine Nitrite Negative (Negative); Urine Occult Blood 4+ (Negative); Urine Urobilinogen Negative (Neg - 1+)
[2024-09-27 12:42] LABS: Urine Character Bloody (Clear); Urine Color Red
[2024-09-27 12:50] LABS: Urine Amorphous Seen; Urine Red Blood Cell >100 /HPF (0-2); Urine Squamous Cell 0-2 /LPF (Few); Urine White Cell 0-2 /HPF (0-5)
--- NOTE | 2024-09-27 13:53 | HPS.HSE ---
Family Physician
-
Family Physician: Linda Ng
Chief Complaint
-
Hematuria, left thigh swelling
History of Present Illness
78-year-old male from home with 1 week of hematuria passing small clots. He states that all of a sudden his left thigh started to swell he denies any injury. In the ER he was noted to have urinary retention 800 cc that required manual irrigation
and a CBI Crow catheter 24 [place] placed. He had ultrasound of his left leg with no DVT present. He has had a hemoglobin drop from 11.4 on 09 20-9.8 on 09/27/2024. He denies headache, sore throat, fever, chills, chest pain, palpitations, cough,
shortness of breath, abdominal pain, nausea, vomiting, diarrhea. 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 daily with dexamethasone 2 mg daily and Xgeva 120 mg SQ every 4
weeks. He is followed by Dr. Pearson from [facility] and Dr. Tam from urology. 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
secondary to metastatic prostate cancer to bone on chronic oral opiates, HTN, HLD, CAD status post multiple stents, CABG x 3 vessel 13 years ago follows with [facility], myotonic dystrophy, RLD, pneumonia with hypoxic respiratory failure October
2023 secondary to Xtandi dry eye syndrome
Medical History
Past Medical History
Past Medical History: Reports Other
Additional Past Medical History:
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
Chronic pain secondary to metastatic prostate cancer to bone on chronic oral opiates
pneumonia with hypoxic respiratory failure October 2023 secondary to Xtandi
HTN
HLD
CAD status post multiple stents
CABG x 3 vessel 13 years ago follows with [facility]
myotonic dystrophy,
RLD
dry eye syndrome
Chronic ambulatory dysfunction uses rollator baseline
Past Surgical History: Reports Other
Additional Past Surgical History:
CABG x 3 vessel 13 years ago follows with [facility]
Multiple cardiac stents
Prostate biopsy 2023
Social History
Tobacco: Non-smoker
Alcohol: None
Drug: None
Personal:
Living: With Family ()
Employment: Retired
Family History
Family History: Not pertinent
Allergies / Home Medications
Allergies reflects when Allergies were last updated in [facility].
Home Medications with original date entered in [facility]
Allergy/Medication List:
Allergies
Allergy/AdvReac Type Severity Reaction Status Date / Time
succinylcholine Allergy Severe Unknown Verified 09/27/24 09:44
clopidogrel bisulfate Allergy Hives Verified 09/27/24 09:44
[From Plavix]
ezetimibe Allergy muscle Verified 09/27/24 09:44
[From Vytorin 10-10] aches
simvastatin Allergy muscle Verified 09/27/24 09:44
[From Vytorin 10-10] aches
Home Medications
aspirin 81 mg tablet,delayed release 81 mg PO DAILY Blood clot prevention/tx 10/31/11
atorvastatin 40 mg tablet 40 mg PO QPM High cholesterol 07/02/22
tamsulosin 0.4 mg capsule 0.4 mg PO BID #60 caps 02/27/23
cholecalciferol (vitamin D3) 10 mcg (400 unit) tablet (Vitamin D3) 25 mcg PO DAILY Supplement 10/25/23
folic acid 0.8 mg capsule 0.8 mg PO DAILY Supplement 10/25/23
relugolix 120 mg tablet (Orgovyx) 120 mg PO DAILY PROSTATE CANCER 10/25/23
bisacodyl 5 mg tablet,delayed release (Dulcolax (bisacodyl)) 5 mg PO BID 04/03/24
denosumab 120 mg/1.7 mL (70 mg/mL) subcutaneous solution (Xgeva) 120 mg SC Q4W 04/03/24
polyethylene glycol 3350 17 gram oral powder packet (Miralax) 17 g PO BID 04/03/24
acetaminophen 500 mg tablet (Tylenol Extra Strength) 1,000 mg PO TID 09/27/24
dexamethasone 2 mg tablet 2 mg PO DAILY 09/27/24
metoprolol succinate 25 mg tablet,extended release 24 hr (Toprol XL) 12.5 mg PO DAILY 09/27/24
Review of Systems
-
History Source: Patient and Family ( at bedside)
A 12 point ROS was completed and negative except as noted: Yes
Constitutional: Denies Fever or Chills
EENT: Denies Sore Throat or Runny Nose
Respiratory: Denies Cough or Trouble Breathing
Cardiac: Denies Chest Pain, Diaphoresis, Palpitations or Syncope
Abdomen/GI: Denies Abdominal Pain, Nausea, Vomiting, Diarrhea, Constipated or Bloody Stools
: Reports Frequency and Bleeding (Hematuria with clots x 1 week)
Musculoskeletal: Reports Edema (Left thigh edema x 1 week no injury); Denies Joint Pain or Joint Swelling
Skin: Denies Itching or Rash
Neurological: Denies Dizzy, Headache or Weakness
Endocrine: Reports No Symptoms
Hematologic/Lymphatic: Reports Bleeding (Hematuria/clots with urinary retention after Crow insertion required manual irrigation)
Psych: Reports Calm
Physical Exam
Vital Signs
Vital Signs
Temp Pulse Resp BP Pulse Ox
98.1 F 107 16 111/60 97
09/27/24 10:30 09/27/24 11:45 09/27/24 11:45 09/27/24 11:01 09/27/24 11:30
Physical Exam
General: Comfortable and Conversant; No Pain or Fever
HEENT: NormoCephalic, Anicteric, Moist mucous membranes, PERRLA, [place] Conjunctivae and No Ptosis
Respiratory: Clear; No Wheezes, Rales or Rhonchi
Cardiac: S1/S2, Regular Rhythm and Peripheral Edema (Left thigh edema no ecchymosis no injury nontender); No Murmur, Rub or Gallop
Breast: Deferred by me
GI: Soft, Non Tender, Non Distended, Normal Bowel Sounds and No Hepatosplenomegaly
Rectal: Deferred by Provider
Genito-urinary: Crow (24 [place] three-way Crow catheter with CBI draining red in color no current clots)
Musculoskeletal: No Clubbing, No Cyanosis and Edema, Left Lower Extremity (Left thigh +2 nonpitting edema no edema to left lower extremity); No Edema, Left Upper Extremity, Edema, Right Upper Extremity or Edema, Right Lower Extremity
Skin: Warm and Dry; No Rash
Neuro: AO x 3, No Motor Deficits, Nonfocal/grossly intact, Cranial Nerves Intact and No Sensory Deficits; No Slurred Speech, Facial Droop, Tremors or Sedated
Psych: Calm
Laboratory Results
-
09/27/24 10:41
09/27/24 10:41
Laboratory Results
Total Bilirubin Cancelled 09/27/24 10:41
AST Cancelled 09/27/24 10:41
ALT Cancelled 09/27/24 10:41
Alkaline Phosphatase Cancelled 09/27/24 10:41
Impression/Plan
-
Impression/plan:
Admit to MedSurg
#Gross hematuria/urinary retention possible radiation cystitis in setting of metastatic prostate cancer to Bone
#Prostate CA with osseous mets and R hydroureter with progression
#History of pneumonia with hypoxic respiratory failure October 2023 from Xtandi
#BPH
Hgb 9.8<11.4 on 09/20/2024
Had 800 cc urine retention requiring manual irrigation in ER
UA no infection noted
-Consult urology followed by Dr. Tam
-type and screen
-Obtain blood consent
-Monitor H&H
-CBI will require 24 [place] per urology
- Continue Flomax 0.4 mg p.o. twice daily with hold parameters
-Check CT abdomen pelvis
- Hold aspirin 81 mg daily
- Continue dexamethasone 2 mg daily, Orgovyx 120 mg daily
- Patient receives Xgeva 120 mg SQ every 4 weeks
#Chronic pain secondary to metastatic prostate cancer to bone on chronic oral opiates
Continue Tylenol 1000 mg 3 times daily, fentanyl patch 12 mcg every 72 H, oxycodone 5 mg every 6 hours as needed severe pain, bowel regimen
#Acute left thigh swelling unclear etiology
Peripheral vascular ultrasound left leg no DVT
-Check CT abdomen pelvis
#Essential HTN
BP 111/60
-Continue metoprolol succinate 12.5 mg daily with hold parameters, Flomax 0.4 mg p.o. twice daily with hold parameters
#CAD s/p CABG x 3 vessel 13 years ago
#History of CAD with multiple stents
follows with [facility]
-Hold aspirin
-Continue statin
#HLD
-Continue statin
#Myotonic dystrophy
#RLD
#Chronic ambulatory dysfunction uses rollator baseline
#Dry eye syndrome�continue Systane
DVT prophylaxis
SCDs
DNR per patient with at bedside
--- NOTE | 2024-09-27 14:33 | W.PN.UPDATE ---
Update Note
Progress Note Update
I have independently examined the patient and agree with H&P written on the same date
78yo M with PMHx of CAD s/p CABG, metastatic prostate cancer with metastasis to the bone, HLD, HTN, BPH, Hx of acute hypoxic failure 2/2 pneumonia in October 2023 came with 1 week of hematuria and LLE swelling lasted for the same period of time. found
in acute urinary retention. No LLE trauma noted. Started on CBI in ED and ruled out DVT with US.
A/P:
#Hematuria with anemia
#Prostate CA with osseous mets with Hx of RT to bladder, cannot exclude radiation cystitis
#BPH
#Acute urinary retention
Follow H&H
transfuse as needed
cont CBI
Urology consult
CT abd/pelvis with simultaneous LLE swelling and possible radiation cystitis with hematuria
Avoid antiplatelets and anticoagulation
anemia w/u
#LLE swelling
DVT ruled out
Concern for outflow obstruction in trunk - CT with IV contrast
#CAD s/p CABG
#Essential HTN
#HLD
cont home meds
DVt ppx on SCDs
Full code
I have spent at least 76min reviewing chart, test results, communication with consultants and direct patient care
--- NOTE | 2024-09-27 15:19 | EDRN ---
Bag #2 infusing still, 1950 was emptied from anderson catheter and 4th floor RN called and given this info to include the 1950 when she does her calculations when Bag #2 is completed.
--- NOTE | 2024-09-27 15:23 | PTCARENOTE ---
09/27- Patient transferred and oriented to unit without issue. AAOX3, Currently beginning Bag #3 of CBI. Urine dark red with clots in Crow Bag. As per ER Nurse, an additional 1950cc urine was emptied in ER but not documented, and we should take
credit for that 1950cc. See CBI Intervention for details of I&O. Patient states generalized chronic pain but denies any current complaints.
[2024-09-27] MEDS: LIPITOR 40 MG PO (16:31)
[2024-09-27] MEDS: TYLENOL 1000 MG PO ×2 (16:31→21:28)
[2024-09-27] MEDS: ROXICODONE 5 MG PO (16:32)
--- NOTE | 2024-09-27 16:35 | PTCARENOTE ---
09/27- Patient has existing Fentanyl Patch on R-lower abdomen that he states he just placed today. Date is 09/27 on existing patch. Patient refuses to take off his new existing patch. Returned Ordered Fentanyl patch to [facility] with [facility]. Texted
Physician and Pharmacy asking to change date of Fentanyl patch removal/administration to 72hours from today. Made both Physician and Pharmacy aware via text that patient refuses to take off existing patch, and ordered patch was returned.
--- NOTE | 2024-09-27 17:12 | W.PN.URO.CBU ---
Today's Communication / Plan
-
no intervention now will reevaluate in am after ct scan
Assessment / Plan
-
multiple problems Getting ct scan to see if lymph edema rt lower extremiity Will also see if major clots in bladder Will try and stop cbi but retention is problem with multiple possible etiologies including cancer, clot , constipation and
neurogenic. May requre cysto and urodynamics But for now ct scan tonight
Diagnosis
-
Date of Service: September 27, 2024
-
Patient Diagnosis:metastatic hormone resitant p cancer now with swollen rt leg without clots and painless hematuria and 800cc in bladder On asa and had xrt 1 month ago
Post Op Day:
Subjective
-
painfree but hates anderson but worried about ca
Objective
-
Vital Signs
Temp Pulse Resp BP Pulse Ox
98.0 F 96 18 135/65 95
09/27/24 15:51 09/27/24 15:51 09/27/24 15:51 09/27/24 15:51 09/27/24 15:51
Intake and Output
09/26/24 09/27/24 09/28/24
06:59 06:59 06:59
Output Total 950 / 950
Balance -950 / -950
Output:
Urine, [place] 800 / 800
True Urine Output from CBI 150 / 150
Laboratory Results
09/27/24 10:41
09/27/24 10:41
Review of Systems
-
: Difficulty Voiding and Dark Urine
Physical Exam
-
General - well developed, well nourished, no acute distress
Chest - clear bilaterally
Abdomen - soft, non-tender, positive bowel sounds, no CVAT, no incisional pain or distention
Genitalia - normal
Rectal - normal
Skin - warm & dry with no rash
Neuro - AOx3, no motor deficits
Extremities - no clubbing, no cyanosis,plus 4 rt edema
Incision - clean, dry
Dressing - clean, dry, intact
Care Review
Data Reviewed
Discussed with: Hospitalist and Nursing
Ultrasound: Image Pers Reviewed
--- NOTE | 2024-09-27 18:22 | W.PN.UPDATE ---
Update Note
Progress Note Update
ct scan reviewed advancing cancer bilateral hydro but creatinine 0.7 has blood products in bladder will hand irrigate pt may require turp to void yet pt has very poor prognsis and would like hospice to see pt while pondering an
operation
--- NOTE | 2024-09-27 18:50 | PTCARENOTE ---
09/27- Patient c/o lower anterior abdominal pain 'like it's full, like it's not emptying or clogged or something.' Patient is very anxious. Calming conversation attempted. While patient's Catheter was draining red urine with clots, it is now not
draining. Irrigated Crow Catheter with 40cc. Irrigation was smooth. Aspirated red urine with small sediment and clots smoothly. Crow began draining red with sediment again. Patient states beginning relief. This was done with Nightshift RN
during report.
[2024-09-27] MEDS: NEURONTIN 600 MG PO (20:17)
[2024-09-27] MEDS: DULCOLAX 5 MG PO (20:17)
[2024-09-27] MEDS: FLOMAX 0.4 MG PO (20:17)
[2024-09-28] MEDS: ROXICODONE 5 MG PO ×2 (04:26→14:15)
[2024-09-28 06:00] VITALS: BMI 33.0
[2024-09-28 07:00] VITALS: BP 113/73
--- NOTE | 2024-09-28 07:00 | PTCARENOTE ---
Pt. c/o groin/lower abd pain and pressure overnight and again had his CBI irrigated per protocol. Multiple small blood clots observed after catheter was irrigated. Patient stated that he felt relief after the catheter was irrigated and clots
drained. CBI irrigation rate increased and catheter is currently draining blood tinged output. Patient is resting comfortably at this time, plan of care continues.
[2024-09-28] MEDS: MIRALAX 17 GRAMS PO (08:01)
[2024-09-28] MEDS: TOPROL XL 12.5 MG PO (08:01)
[2024-09-28] MEDS: TYLENOL 1000 MG PO ×2 (08:02→17:25)
[2024-09-28] MEDS: VITAMIN D3 (cholecalciferol) 25 MCG PO (08:03)
[2024-09-28] MEDS: FLOMAX 0.4 MG PO ×2 (08:03→20:10)
[2024-09-28] MEDS: DULCOLAX 5 MG PO ×2 (08:03→20:10)
[2024-09-28] MEDS: FOLVITE 0.8 MG PO (08:03)
[2024-09-28] MEDS: DECADRON 2 MG PO (08:04)
[2024-09-28 08:14] LABS: ALT (SGPT) 12 U/L (0-50); AST (SGOT) 33 U/L (17-59); Albumin 3.3 g/dl (3.5-5.0); Alkaline Phosphatase 54 U/L (38-126); Blood Urea Nitrogen 15 mg/dl (9-20); Calcium 8.9 mg/dl (8.4-10.2); Carbon Dioxide 28 mmol/L (22-30); Chloride 112 mmol/L (98-107); Estimated Creatinine Clearance 88 ml/min; Glucose 88 mg/dl (70-99); Iron 56 ug/dl (49-181); Potassium 5.1 mmol/L (3.5-5.1); Sodium 141 mmol/L (135-145); Total Bilirubin 0.7 mg/dl (0.2-1.3); Total Protein 5.6 g/dl (6.3-8.2); eGFR > 60.00
[2024-09-28 08:24] LABS: Percent Saturation 22 % (20-50); Total Iron Binding Capacity 251 ug/dl (261-462)
[2024-09-28 08:33] LABS: % Basophils 0.4 % (0-2); % Eosinophils 3.6 % (0-6); % Immature Granulocytes 0.5 % (0-0.5); % Lymphocytes 13.6 % (20.5-51.1); % Neutrophils 74.9 % (42.2-75.2); Absolute Eosinophils 0.4 10^3/uL (0-0.7); Absolute Immature Granulocytes 0.1 10^3/uL (0-0.05); Absolute Lymphocytes 1.3 10^3/uL (1.2-3.4); Absolute Monocytes 0.7 10^3/uL (0.1-0.6); Absolute Neutrophils 7.2 10^3/uL (1.4-6.5); Hematocrit 27.8 % (39.0-52.0); Hemoglobin 9.1 g/dL (13.0-18.0); Mean Corp Hgb Conc. 32.7 g/dL (33.0-37.0); Mean Corpuscular Hgb 32.7 pg (27.0-31.0); Mean Platelet Volume 9.3 fL (7.4-10.4); Nucleated Red Blood Cells % 0 % (-); Platelet Count 371 10^3/uL (130-400); Red Blood Cell Count 2.78 10^6/uL (4.70-6.10); Red Cell Dist. Width 14.9 % (11.5-14.5); White Blood Cell Count 9.6 10^3/uL (4.8-10.8)
[2024-09-28 09:06] LABS: Folate > 20.0 ng/ml (2.76-20); Vitamin B12 329 pg/ml (239-931)
[2024-09-28 09:17] VITALS: BP 103/54; PULSE 103; O2SAT 88
[2024-09-28 09:20] VITALS: BP 103/56; PULSE 103; O2SAT 88
--- NOTE | 2024-09-28 10:23 | W.PN.HOSP.TC ---
Today's Communication/Plan
-
See PN
Assessment / Plan
Assessment / Plan
78yo M with PMHx of CAD s/p CABG, metastatic prostate cancer with metastasis to the bone, HLD, HTN, BPH, Hx of acute hypoxic failure 2/2 pneumonia in October 2023 came with 1 week of hematuria and LLE swelling lasted for the same period of time. found
in acute urinary retention. No LLE trauma noted. Started on CBI in ED and ruled out DVT with US.
A/P:
#acute blood loss anemia 2/2 Hematuria due to bleeding CA
#Prostate CA with osseous mets with Hx of RT to bladder, cannot exclude radiation cystitis
#BPH
#Acute urinary retention
#Bilateral hydronephrosis 2/2 distal ureteral obstruction by CA
Might need nephrostomy depending on GOC and Cr
Follow H&H
transfuse as needed
cont CBI
Urology consult: might need cystoscopy with TURP - family to decide
CT abd/pelvis with simultaneous LLE swelling and possible radiation cystitis with hematuria
Avoid antiplatelets and anticoagulation
#chills
one episode overnight
watch for fever or WBC elevation
low threshold for Abx, but no indication at this time
#LLE swelling
DVT ruled out
2/2 CA progression and lymphostasis due to lymphadenopathy and CA invasion of extraprostatic soft tissue
#GOC
With significant findings on CT scan, new developing lymphedema of LLE due to CA invasion of extraprostatic tissues, b/l hydronephrosis and obvious progression of the disease - Palliative care consult to discuss hospice.
#CAD s/p CABG
#Essential HTN
#HLD
#myotonic dystrophy
#chronic ambulatory dysfunction
#Dry eye
cont home meds
#Diverticulosis w/o diverticulitis
high fiber diet
DVt ppx on SCDs
Full code
I have spent at least 56min reviewing chart, test results, communication with consultants and direct patient care
Anticipated Discharge: > 48 hours
Subjective/Interval History
-
Date of Service: September 28, 2024
Objective Data
-
Labs:
Laboratory Results
09/28/24
06:12
WBC 9.6
Hgb 9.1 L
Hct 27.8 L
Plt Count 371 D
Sodium 141
Potassium 5.1
Chloride 112 H
Carbon Dioxide 28
BUN 15
Creatinine 0.7
Glucose 88
Calcium 8.9
Total Bilirubin 0.7
AST 33
ALT 12
Alkaline Phosphatase 54
Vital Signs:
Vital Signs
Temp Pulse Resp BP Pulse Ox
99.0 F 110 22 113/73 93
09/28/24 07:00 09/28/24 07:00 09/28/24 07:00 09/28/24 07:00 09/28/24 07:00
I&O
09/27/24 09/28/24 09/29/24
06:59 06:59 06:59
Intake Total 480 / 480
Output Total 1450 / 1450 3950 / 3950
Balance -970 / -970 -3950 / -3950
Review of Systems
-
History Source: Patient
All other systems: Reviewed and negative
Physical Exam
-
General: Comfortable
Cardiac: Regular Rhythm
GI: Soft, Nontender and Nondistended
Genito-urinary: Bloody Urine and Continuous Bladder Irrigation
Neuro: Awake, Alert, Oriented and AO x 3
Psych: Calm
--- NOTE | 2024-09-28 12:17 | W.PN.URO.CBU ---
Today's Communication / Plan
-
await decision for op room will call but if no decision will at least put off until decision is amde
Assessment / Plan
-
multiple problems Getting ct scan to see if lymph edema rt lower extremiity Will also see if major clots in bladder n debris in bladder but anderson draining Ptconsidering eval ubnder anesthesi to evacuate clot and fulgerate bleding sites to see
if he can void once clot free failure rates are possible asretention may not be due to clots Turp not good idea as will not heal due to daiation also if chils may need to posytone as too risky. await pt decision as othe rpossibilty is hosice and
home with anderson with or witout hospice
Diagnosis
-
Date of Service: September 28, 2024
-
Patient Diagnosis:
Post Op Day:
Patient Diagnosis:metastatic hormone resitant p cancer now with swollen rt leg without clots and painless hematuria and 800cc in bladder On asa and had xrt 1 month ago
Post Op Day:
Subjective
-
stable but hematuria had chill no fevr
Objective
-
Vital Signs
Temp Pulse Resp BP Pulse Ox
99.0 F 110 22 113/73 93
09/28/24 07:00 09/28/24 07:00 09/28/24 07:00 09/28/24 07:00 09/28/24 07:00
Intake and Output
09/27/24 09/28/24 09/29/24
06:59 06:59 06:59
Intake Total 480 / 480
Output Total 1450 / 1450 3950 / 3950
Balance -970 / -970 -3950 / -3950
Intake:
Oral fluids 480 / 480
Output:
Urine, [place] 800 / 800
True Urine Output from CBI 650 / 650 3950 / 3950
Laboratory Results
09/28/24 06:12
09/28/24 06:12
Review of Systems
-
Constitutional: Chills
: Difficulty Voiding and Dark Urine
Physical Exam
-
General - well developed, well nourished, no acute distress
Chest - clear bilaterally
Abdomen - soft, non-tender, positive bowel sounds, no CVAT, no incisional pain or distention
Genitalia - normal
Rectal - normal
Skin - warm & dry with no rash
Neuro - AOx3, no motor deficits
Extremities - no clubbing, no cyanosis, no edema
Incision - clean, dry
Dressing - clean, dry, intact
Counseling
-
pleae hand hairrigate by filling bladder wir 200- 300 cc then foster piston syringe to tr and free clots without need surgery
Care Review
Data Reviewed
Discussed with: Nursing
[2024-09-28 15:00] VITALS: BP 101/55
--- NOTE | 2024-09-28 16:14 | DOWNTIME ---
There was a [employer] Client Creative Coordinator Downtime on 09/28/2024 from 1230 to 09/28/2024 at 1550. Downtime documentation of patient's care, including medication administrations, has been reconciled in the electronic record per guidelines. Refer to the
patient's paper chart under the miscellaneous tab to see printed paper medication records and downtime forms.
--- NOTE | 2024-09-28 16:28 | W.CON.PAL ---
Consultation
-
Date/Time Consultation Requested: 09/27
Date/Time Consultation Performed: 09/28
Performing Provider: Nika JACQUES
Reason for Consult: Goals of Care Discussion
Reason for Admission
Illness Course/HPI
78 year old M with PMH of metastatic prostate cancer to the bone currently on treatment, known to as an outpatient for pain management. Admitted to with hematuria x1 week and L thigh swelling. Upon admission CT revealed bilateral
hydroureteronephrosis, moderate to severe left and mild right. Likely secondary to distal ureteral obstruction from the patient's known prostate cancer with extraprostatic extension into the adjacent pelvic soft tissues, left greater than right, and
marjan metastases in the pelvis likely contributing to his L thigh edema.
Seen by urology and started on CBG. PLanned for cysto with urology tomorrow, ?need for stenting vs nephrostomy.
Seen at bedside with patients present. Discussed POD on CT and planned for procedure. He would like to avoid 'the bag' if possible. Agreeable for cysto tomorrow. We discussed hospice given his POD despite treatment. He is not interested right
now. Will need onc input regarding next steps in treatment. If no other options, hospice would be his only option. If more treatment available, seems patient would be willing to do this. Await further input from them. Will follow up thursday.
Objective Data
-
Objective Data:
Vital Signs
Temp Pulse Resp BP Pulse Ox
98.4 F 81 18 101/55 93
09/28/24 15:00 09/28/24 15:00 09/28/24 15:00 09/28/24 15:00 09/28/24 15:00
Laboratory Results
09/28/24 06:12
09/28/24 06:12
Total Protein 5.6 g/dl (6.3-8.2) L 09/28/24 06:12
Albumin 3.3 g/dl (3.5-5.0) L 09/28/24 06:12
Urine Color Red 09/27/24 11:45
Urine Clarity Bloody (Clear) 09/27/24 11:45
Urine pH 7.0 (5.0-9.0) 09/27/24 11:45
Ur Specific [place] 1.010 (<1.030) 09/27/24 11:45
Urine Ketones 2+ (Negative) A 09/27/24 11:45
Urine Bilirubin 1+ (Negative) A 09/27/24 11:45
Palliative Performance Scale
Palliative Performance Scale:
PPS Level Ambulation Activity & Evidence of Disease Self Care Intake Conscious Level
100% Full Normal Activity & Work; Full Intake Full
No Evidence of Disease
90% Full Normal Activity & Work; Full Normal Full
Some Evidence of Disease
80% Full Normal Activity with Effort Full Normal or Full
Some Evidence of Disease Reduced
70% Reduced Unable Normal Job/Work Full Normal or Full
Significant Disease Reduced
60% Reduced Unable Hobby/Housework Occasional Normal or Full or Confusion
Significant Disease Assistance Reduced
50% Mainly Sit/Lie Unable to do Any Work Considerable Normal or Full or Confusion
Extensive Disease Assistance Req'd Reduced
40% Mainly in Bed Unable to do Most Activity Mainly Assistance Normal or Full or Drowsy;
Extensive Disease Reduced +/- Confusion
30% Totally Bed Unable to do Any Activity Total Care Normal or Full or Drowsy;
Bound Extensive Disease Reduced +/- Confusion
20% Totally Bed Bound Unable to do Any Activity Total Care Minimal to Full or Drowsy;
Extensive Disease Sips +/- Confusion
10% Totally Bed Bound Unable to do Any Activity Total Care Mouth Care Drowsy or Coma;
Extensive Disease Only +/- Confusion
0%
PPS Score Level:
Palliative Performance Score Response
Palliative Performance Score Response: 50%
Physical Exam
-
General: Well Developed and Appears Chronically Ill
HEENT: Normocephalic
Respiratory: Clear to Auscultation
Cardiac: Regular Rhythm
Peripheral Vascular: Edema, Left Lower Extremity
Neuro: Awake and Alert
Assessment / Plan
-
Assessment/Plan:
78 year old M with metastatic prostate cancer with POD
- not interested in hospice at this time, need further onc input about next steps in treatment if any
- fentanyl 12mcg q72 hours, oxycodone 5mg prn
- bowel regimen
- will follow up thursday. will see as outpatient for continued care if does not want hospice on discharge
Care Reviewed
Data Reviewed
Radiology procedure: Image Reviewed
Medical Tests: I reviewed
Reviewed with: Patient, Family and Physician
[2024-09-28] MEDS: PEPTO-BISMOL 2 TABLET PO (17:24)
[2024-09-28] MEDS: LIPITOR 40 MG PO (17:25)
[2024-09-28] MEDS: NEURONTIN 600 MG PO (20:10)
[2024-09-28] MEDS: TYLENOL PO (21:30)
[2024-09-28 23:00] VITALS: BP 117/60
[2024-09-29] VITALS (17 sets, daily range): BP systolic 87–124; BP diastolic 49–67; BMI 30.7
[2024-09-29] MEDS: TYLENOL PO (07:20)
[2024-09-29] MEDS: FOLVITE PO (07:20)
[2024-09-29] MEDS: VITAMIN D3 (cholecalciferol) PO (07:20)
[2024-09-29] MEDS: FLOMAX PO (07:20)
[2024-09-29] MEDS: MIRALAX PO (07:20)
[2024-09-29] MEDS: DECADRON PO (07:20)
[2024-09-29] MEDS: DULCOLAX PO (07:20)
[2024-09-29] MEDS: TOPROL XL PO (07:20)
[2024-09-29 07:46] LABS: % Basophils 0.3 % (0-2); % Eosinophils 3.5 % (0-6); % Immature Granulocytes 0.3 % (0-0.5); % Lymphocytes 20.4 % (20.5-51.1); % Monocytes 9.2 % (1.7-9.3); % Neutrophils 66.3 % (42.2-75.2); Absolute Eosinophils 0.2 10^3/uL (0-0.7); Absolute Lymphocytes 1.4 10^3/uL (1.2-3.4); Absolute Monocytes 0.6 10^3/uL (0.1-0.6); Absolute Neutrophils 4.6 10^3/uL (1.4-6.5); Hematocrit 25.5 % (39.0-52.0); Hemoglobin 8.4 g/dL (13.0-18.0); Mean Corp Hgb Conc. 32.9 g/dL (33.0-37.0); Mean Corpuscular Hgb 32.7 pg (27.0-31.0); Mean Corpuscular Volume 99.2 fL (80.0-94.0); Mean Platelet Volume 9.4 fL (7.4-10.4); Nucleated Red Blood Cells % 0 % (-); Platelet Count 344 10^3/uL (130-400); Red Blood Cell Count 2.57 10^6/uL (4.70-6.10); Red Cell Dist. Width 15.1 % (11.5-14.5); White Blood Cell Count 6.9 10^3/uL (4.8-10.8)
[2024-09-29 08:56] LABS: ALT (SGPT) 11 U/L (0-50); AST (SGOT) 29 U/L (17-59); Alkaline Phosphatase 49 U/L (38-126); Blood Urea Nitrogen 16 mg/dl (9-20); Calcium 8.8 mg/dl (8.4-10.2); Carbon Dioxide 26 mmol/L (22-30); Chloride 110 mmol/L (98-107); Estimated Creatinine Clearance 85 ml/min; Glucose 84 mg/dl (70-99); Potassium 4.7 mmol/L (3.5-5.1); Sodium 139 mmol/L (135-145); Total Bilirubin 0.7 mg/dl (0.2-1.3); Total Protein 5.4 g/dl (6.3-8.2); eGFR > 60.00
[2024-09-29] MEDS: DEMEROL 12.5 MG IV ×2 (09:42→09:56)
[2024-09-29] MEDS: ZOFRAN 4 MG IV (09:42)
[2024-09-29] MEDS: SUBLIMAZE 50 MCG IV ×2 (09:43→09:56)
--- NOTE | 2024-09-29 10:25 | PTCARENOTE ---
09/29- Patient returned from OR without issue. Patient c/o 09/20 pain and is hungary. Will administer PRN Pain medication as ordered. CBI running, with currently red clear urine in Crow bag. Crow CDI. No current bleeding at site of insertion.
--- NOTE | 2024-09-29 11:20 | CON.ONC ---
Documented by User: Fadi Vigil DO, Resident 09/29/24 12:08
Consultation
-
Date Consultation Requested: 09/28/24
Date Consultation Performed: 09/29/24
Requesting Provider: Kota Seo
Performing Provider: Milton Robles
Reason for Consultation: Prostate CA
Impression
Impression
Elier Delgadillo is an 78M with a past medical history of prostate adenocarcinoma with a [place] score of 9 and disease metastatic to bone and soft tissue. He is a patient of Dr. Pearson and is currently being treated with Orgovyx 120mg PO daily,
dexamethasone 2mg PO daily and Xgeva 120mg SQ q4wk. He has also recently been treated with one fraction of 800 cGY to L1-L4. Notably patient was initially treated with enzalutamide but developed pneumonitis. He presented to [facility] with 7 days of
hematuria and LLE swelling/weight gain. He is status post cystoscopy/clot evac/fulgaration with Dr. Finley.
Plan
Plan
We discussed adjuvant/alternative therapies with the patient.
These therapies will be discussed at greater length with patient and family in the outpatient setting, and there is no indication to change the patient's regimen while in the hospital.
Pneumonitis secondary to enzalutamide is a class effect and thus patient would not be a candidate for other ASRIs.
Aberiterone has been discussed with the patient by Dr. Eddy in the outpatient setting multiple times, and this would like be the next step in treatment.
Patient would be an unlikely candidate for systemic chemotherapy with taxanes given his history of myotonic dystrophy type 2, although Gevtana may be an option given gentler side effect profile.
Also can consider Pluvicto if the above therapies fail.
Patient History
History of Present Illness
Elier Delgadillo is an 78M with a past medical history of prostate adenocarcinoma with a [place] score of 9 and disease metastatic to bone and soft tissue. He is a patient of Dr. Pearson and is currently being treated with Orgovyx 120mg PO daily,
dexamethasone 2mg PO daily and Xgeva 120mg SQ q4wk. He has also recently been treated with one fraction of 800 cGY to L1-L4.
Patient presented to [facility] 2 days ago complaining of hematuria with small clots for approximately 7 days. The patient called his urologist and oncologist regarding the hematuria and was advised to keep a watchful eye for resolution vs. progression.
Hematuria continued for 7 days and patient also started to notice swelling of the left thigh and weight gain of 5-7 lbs despite a lower than normal appetite. This prompted the patient to come to the ED.
In ED patient was found to have acute urinary retention and 800cc of blood tinged urine with clots was drained. Patient subsequently underwent manual irrigation and CBI. An ultrasound of the LLE did not reveal any deep venous thrombosis. CT of the
abdomen and pelvis revealed bilateral hydroureteronephrosis, moderate to severe on the left and mild on the right. Likely secondary to distal ureteral obstruction from the patient's known prostate cancer with extraprostatic extension into the
adjacent pelvic soft tissues, left greater than right, and marjan metastases in the pelvis. Urinalysis revealed blood but no infection.
The patient was taken to the OR today for cystoscopy with clot evacuation and fulgeration. We met with him in his inpatient room after the surgery and patient states he is feeling well.
Patient also seen by palliative care who sees the patient on an outpatient basis as well. Hospice was discussed. Patients goals remain restorative, but he acknowledges that his prognosis is dicey. Per patient he does not even want to discuss hospice
if there are adjuvant/alternative therapies available. Heme/onc was consulted to comment on these therapies.
Past-Medical/Surgical History
PMHx
Metastatic prostate CA to bone, right hydroureter, LA, and soft tissue
Chronic pain secondary to metastatic prostate cancer to bone on chronic oral opiates
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
HTN
HLD
CAD s/p multiple stents
CABG x 3 vessel 13 years ago
Myotonic dystrophy type 2
RLD
Dry Eye Syndrome
Chronic Ambulatory Dysfunction
PSHx
CABG x 3 vessel 13 years ago
Multiple cardiac stents
Prostate biopsy 2023
Patient Medication
�Medication �Instructions �Recorded �Confirmed �Last Taken �Type
aspirin 81 mg tablet,delayed 81 mg PO DAILY Blood clot 10/31/11 09/27/24 09/27/24 History
release prevention/tx
atorvastatin 40 mg tablet 40 mg PO QPM High cholesterol 07/02/22 09/27/24 04/02/24 History
tamsulosin 0.4 mg capsule 0.4 mg PO BID #60 caps 02/27/23 09/27/24 09/27/24 Rx
cholecalciferol (vitamin D3) 10 25 mcg PO DAILY Supplement 10/25/23 09/27/24 09/27/24 History
mcg (400 unit) tablet (Vitamin D3)
folic acid 0.8 mg capsule 0.8 mg PO DAILY Supplement 10/25/23 09/27/24 09/27/24 History
relugolix 120 mg tablet (Orgovyx) 120 mg PO DAILY PROSTATE CANCER 10/25/23 09/27/24 09/27/24 History
bisacodyl 5 mg tablet,delayed 5 mg PO BID Constipation 04/03/24 09/27/24 09/27/24 History
release (Dulcolax (bisacodyl))
denosumab 120 mg/1.7 mL (70 mg/mL) 120 mg SC Q4W 04/03/24 09/27/24 Unknown History
subcutaneous solution (Xgeva)
polyethylene glycol 3350 17 gram 17 g PO DAILY 04/03/24 09/27/24 04/02/24 History
oral powder packet (Miralax)
acetaminophen 500 mg tablet 1,000 mg PO TID Pain 09/27/24 09/27/24 09/27/24 History
(Tylenol Extra Strength)
dexamethasone 2 mg tablet 2 mg PO DAILY Anti-Inflammatory 09/27/24 09/27/24 09/27/24 History
fentanyl 12 mcg/hr transdermal 1 patch transdermal Q72H Pain 05/09/27/24 09/27/24 History
patch
gabapentin 300 mg capsule 600 mg PO HS Neurological Condition 09/27/24 09/27/24 09/26/24 History
metoprolol succinate 25 mg 12.5 mg PO DAILY Blood Pressure 09/27/24 09/27/24 09/27/24 History
tablet,extended release 24 hr
(Toprol XL)
oxycodone 5 mg tablet 5 mg PO Q6HPRN PRN severe pain 09/27/24 09/27/24 09/27/24 History
Active Medications
Generic Name Dose Route Start Last Admin
Trade Name Freq PRN Reason Stop Dose Admin
Acetaminophen 1,000 mg 09/27/24 16:00 09/29/24 07:20
Acetaminophen 500 Mg Tablet PO 10/25/24 15:59 Not Given
TID STEPHON
Atorvastatin Calcium 40 mg 09/27/24 18:00 09/28/24 17:25
Atorvastatin (Lipitor) 40 Mg Tablet PO 10/25/24 17:59 40 mg
QPM STEPHON Administration
Bisacodyl 5 mg 09/27/24 20:00 09/29/24 07:20
Bisacodyl 5 Mg Enteric Coated Tablet PO 10/25/24 19:59 Not Given
BID STEPHON
Bismuth Subsalicylate 2 tablet 09/28/24 16:34 09/28/24 17:24
Pepto-Bismol Chewable Tablet (Bismuth Subsalicylate 262 Mg) PO 10/26/24 16:33 2 tablet
QIDPRN PRN Administration
upset stomach
Cholecalciferol 25 mcg 09/28/24 08:00 09/29/24 07:20
Cholecalciferol (Vitamin D3) 25 Mcg Tablet (1,000 Units) PO 10/26/24 07:59 Not Given
DAILY STEPHON
Dexamethasone 2 mg 09/28/24 08:00 09/29/24 07:20
Dexamethasone 2 Mg Tablet PO 10/26/24 07:59 Not Given
DAILY STEPHON
Fentanyl 1 patch 09/30/24 16:00
Fentanyl 12 Mcg/Hr Patch TRANSDERM 10/14/24 15:59
Q72H STEPHON
Fentanyl Citrate 50 mcg 09/29/24 08:01 09/29/24 09:56
Fentanyl (50 Mcg/Ml) 100 Mcg/2 Ml Ampul IV 09/30/24 08:01 50 mcg
PACU-Q5MPRN PRN Administration
severe pain
Fentanyl Citrate 25 mcg 09/29/24 08:01
Fentanyl (50 Mcg/Ml) 100 Mcg/2 Ml Ampul IV 09/30/24 08:01
PACU-Q5MPRN PRN
moderate pain
Folic Acid 0.8 mg 09/28/24 08:00 09/29/24 07:20
Folic Acid 0.4 Mg Tablet PO 10/26/24 07:59 Not Given
DAILY STEPHON
Gabapentin 600 mg 09/27/24 22:00 09/28/24 20:10
Gabapentin 300 Mg Capsule PO 10/25/24 21:59 600 mg
HS STEPHON Administration
Parenteral Electrolytes 1,000 mls @ 100 mls/hr 09/29/24 08:15
Normosol-R/Plasmalyte-A IV 09/30/24 08:01
PER PROTOCOL STEPHON
Metoprolol Succinate 12.5 mg 09/28/24 08:00 09/29/24 07:20
Metoprolol 12.5 Mg Extended Release Dose (1/2 Of 25 Mg Xl Tablet) PO 10/26/24 07:59 Not Given
DAILY STEPHON
Relugolix [Orgovyx] 0 mg 09/28/24 08:00
120 Mg Tablet Po PO 10/26/24 07:59
Daily DAILY STEPHON
Oxycodone HCl 5 mg 09/27/24 15:32 09/28/24 14:15
Oxycodone 5 Mg Regular Release Tablet PO 10/11/24 15:31 5 mg
Q6HPRN PRN Administration
severe pain
Patch Removal 0 patch 09/27/24 16:00 09/27/24 16:30
Remove Fentanyl Patch REMOVE 10/11/24 15:59 Not Given
Q72H STEPHON
Polyethylene Glycol 17 grams 09/28/24 08:00 09/29/24 07:20
Polyethylene Glycol Powder 17 Grams Packet PO 10/26/24 07:59 Not Given
DAILY STEPHON
Prochlorperazine Edisylate 5 mg 09/29/24 08:01
Prochlorperazine 10 Mg/2 Ml Vial IV 09/30/24 08:01
PACU-ONCEPRN PRN
nausea/vomiting
Sodium Chloride 0 flush 09/27/24 16:00
Sodium Chloride 0.9% (Flush) Syringe IV 10/25/24 15:59
PER PROTOCOL STEPHON
Tamsulosin HCl 0.4 mg 09/27/24 20:00 09/29/24 07:20
Tamsulosin 0.4 Mg Capsule PO 10/25/24 19:59 Not Given
BID STEPHON
Review of Systems
-
History Source: Patient
All Other Systems: Reviewed and Negative
Physical Exam
-
General: No Apparent Distress, Comfortable and Conversant
Cardiology: Normal Sinus Rhythm and No Murmur
Pulmonary: Clear; Negative Wheezes, Rales or Rhonchi
GI: Soft
Musculoskeletal: No Clubbing, No Cyanosis and Edema, Left Lower Extrem
Skin: Warm and Dry
Psych: Calm
Labs
Lab Results
WBC 6.9 10^3/uL (4.8-10.8) 09/29/24 07:06
RBC 2.57 10^6/uL (4.70-6.10) L 09/29/24 07:06
Hgb 8.4 g/dL (13.0-18.0) L 09/29/24 07:06
Hct 25.5 % (39.0-52.0) L 09/29/24 07:06
MCV 99.2 fL (80.0-94.0) H 09/29/24 07:06
MCH 32.7 pg (27.0-31.0) H 09/29/24 07:06
MCHC 32.9 g/dL (33.0-37.0) L 09/29/24 07:06
RDW 15.1 % (11.5-14.5) H 09/29/24 07:06
Plt Count 344 10^3/uL (130-400) 09/29/24 07:06
MPV 9.4 fL (7.4-10.4) 09/29/24 07:06
Abs Immat Gran (auto) 0.0 10^3/uL (0-0.05) 09/29/24 07:06
Absolute Neuts (auto) 4.6 10^3/uL (1.4-6.5) 09/29/24 07:06
Absolute Lymphs (auto) 1.4 10^3/uL (1.2-3.4) 09/29/24 07:06
Absolute Monos (auto) 0.6 10^3/uL (0.1-0.6) 09/29/24 07:06
Absolute Eos (auto) 0.2 10^3/uL (0-0.7) 09/29/24 07:06
Absolute Basos (auto) 0.0 10^3/uL (0-0.2) 09/29/24 07:06
Immature Gran % 0.3 % (0-0.5) 09/29/24 07:06
Neutrophils % 66.3 % (42.2-75.2) 09/29/24 07:06
Lymphocytes % 20.4 % (20.5-51.1) L 09/29/24 07:06
Monocytes % 9.2 % (1.7-9.3) 09/29/24 07:06
Eosinophils % 3.5 % (0-6) 09/29/24 07:06
Basophils % 0.3 % (0-2) 09/29/24 07:06
Creatinine 0.7 mg/dL (0.7-1.3) 09/29/24 07:06
Vital Signs
Vital Signs
Temp Pulse Resp BP Pulse Ox
97.8 F 82 18 95/59 93
09/29/24 11:15 09/29/24 11:15 09/29/24 11:15 09/29/24 11:15 09/29/24 11:15

Documented by User: Milton Robles DO 09/29/24 13:29
Plan
Plan
We discussed adjuvant/alternative therapies with the patient.
These therapies will be discussed at greater length with patient and family in the outpatient setting, and there is no indication to change the patient's regimen while in the hospital.
Pneumonitis secondary to enzalutamide is a class effect and thus patient would not be a candidate for other ASRIs.
Aberiterone has been discussed with the patient by Dr. Eddy in the outpatient setting multiple times, and this would like be the next step in treatment.
Patient would be an unlikely candidate for systemic chemotherapy with taxanes given his history of myotonic dystrophy type 2, although cabazitaxel may be an option given gentler side effect profile.
Also can consider Pluvicto if the above therapies fail.
[2024-09-29] MEDS: ROXICODONE 5 MG PO ×3 (12:02→22:49)
--- NOTE | 2024-09-29 12:15 | W.PN.HOSP.TC ---
Addendum entered and electronically signed by Kota Seo MD 09/29/24 12:30:
As per conversation with urology - will prefer to hold off ASA for 7 days total. With Hx of CABG - will probably allow a day-two more for monitoring before restart
Original Note:
Today's Communication/Plan
-
post cystoscopy - clear urine
follow AM labs
Start Abx for respiratory infection
check COVID-19, Influenza
Possible d/c in 24 h if hematuria resolve
Assessment / Plan
Assessment / Plan
78yo M with PMHx of CAD s/p CABG, metastatic prostate cancer with metastasis to the bone, HLD, HTN, BPH, Hx of acute hypoxic failure 2/2 pneumonia in October 2023 came with 1 week of hematuria and LLE swelling lasted for the same period of time. found
in acute urinary retention. No LLE trauma noted. Started on CBI in ED and ruled out DVT with US.
A/P:
#acute blood loss anemia 2/2 Hematuria due to bleeding CA
#Prostate CA with osseous mets with Hx of RT to bladder, cannot exclude radiation cystitis
#BPH
#Acute urinary retention
#Bilateral hydronephrosis 2/2 distal ureteral obstruction by CA
Might need nephrostomy, but with normal Cr - currently risk overweight benefit as discussed with urologist. Weekly BMP advised - patient and family verbalized understanding
Follow H&H
transfuse as needed
Urology consult: had cystoscopy on 09/29/24
CT abd/pelvis with simultaneous LLE swelling and possible radiation cystitis with hematuria
Avoid antiplatelets and anticoagulation
#chills with new cough in immunosuppressed patient
reasonable to treat empiric respiratory infection
Chest XR
#LLE swelling
DVT ruled out
2/2 CA progression and lymphostasis due to lymphadenopathy and CA invasion of extraprostatic soft tissue
#GOC
With significant findings on CT scan, new developing lymphedema of LLE due to CA invasion of extraprostatic tissues, b/l hydronephrosis and obvious progression of the disease - Palliative care consult to discuss hospice. At this time patient will
prefer to work with oncologist on possible options, not ready for hospice
Onco consult: Aberiterone has been discussed with the patient by Dr. Eddy in the outpatient setting multiple times, and this would like be the next step in treatment.
#CAD s/p CABG
#Essential HTN
#HLD
#myotonic dystrophy
#chronic ambulatory dysfunction
#Dry eye
cont home meds
#Diverticulosis w/o diverticulitis
high fiber diet
DVt ppx on SCDs
Full code
I have spent at least 56min reviewing chart, test results, communication with consultants and direct patient care
Anticipated Discharge: 24 - 48 hours
Subjective/Interval History
-
Date of Service: September 29, 2024
Objective Data
-
Labs:
Laboratory Results
09/29/24
07:06
WBC 6.9
Hgb 8.4 L
Hct 25.5 L
Plt Count 344
Sodium 139
Potassium 4.7
Chloride 110 H
Carbon Dioxide 26
BUN 16
Creatinine 0.7
Glucose 84
Calcium 8.8
Total Bilirubin 0.7
AST 29
ALT 11
Alkaline Phosphatase 49
Vital Signs:
Vital Signs
Temp Pulse Resp BP Pulse Ox
97.6 F 75 16 105/56 97
09/29/24 12:00 09/29/24 12:00 09/29/24 12:00 09/29/24 12:00 09/29/24 12:00
I&O
09/28/24 09/29/24 09/30/24
06:59 06:59 06:59
Intake Total 480 / 480 780 / 780 500 / 500
Output Total 1450 / 1450 12650 / 11425 200 / 200
Balance -970 / -970 -56463 / -80014 300 / 300
Physical Exam
-
General: Well Developed, Well Nourished and No Apparent Distress
Genito-urinary: Clear Urine and Continuous Bladder Irrigation
Psych: Calm
[2024-09-29] MEDS: NON-FORMULARY ITEM 1 MG PO (13:15)
[2024-09-29] MEDS: VIBRAMYCIN 100 MG PO ×2 (13:17→19:59)
[2024-09-29] MEDS: STERILE WATER FOR INJECTION 10 ML IV (13:17)
[2024-09-29] MEDS: ROCEPHIN 1000 MG IV (13:17)
[2024-09-29 13:48] LABS: COVID-19 Antigen Negative (Negative)
--- NOTE | 2024-09-29 15:23 | CM ---
Addendum entered by Briseida Mi 09/29/24 15:55:
grants manager spoke with patient and spouse regarding skilled placement and patient has declined skilled wants to return to home with Visiting Nurses, Visiting Nurse options reviewed with patient and patient has selected [facility], [facility] liaison contacted.
Original Note:
grants manager reviewed patient's chart and met with patient and patient lives with his spouse in a 2 story home, patient is independent with adl's and uses a rollator with ambulation, patient has a first floor set up with and sleeps in a recliner.
Per physical therapy the recommendation is for skilled placement skilled options reviewed with patient.
PCP: Linda Ng
Pharmacy: [facility] in [place]
Plan; Possible skilled placement, will review with patient.
[2024-09-29] MEDS: TYLENOL 1000 MG PO ×2 (16:19→21:40)
[2024-09-29] MEDS: LIPITOR 40 MG PO (16:19)
[2024-09-29] MEDS: FLOMAX 0.4 MG PO (19:59)
[2024-09-29] MEDS: DULCOLAX 5 MG PO (19:59)
[2024-09-29] MEDS: PEPTO-BISMOL 2 TABLET PO (20:01)
[2024-09-29] MEDS: NEURONTIN 600 MG PO (21:40)
[2024-09-30] MEDS: ROXICODONE 5 MG PO ×2 (06:01→11:16)
[2024-09-30 06:14] VITALS: BMI 30.7
[2024-09-30 07:05] LABS: % Basophils 0.2 % (0-2); % Eosinophils 0.1 % (0-6); % Immature Granulocytes 0.6 % (0-0.5); % Lymphocytes 19.9 % (20.5-51.1); % Monocytes 8.8 % (1.7-9.3); % Neutrophils 70.4 % (42.2-75.2); Absolute Immature Granulocytes 0.1 10^3/uL (0-0.05); Absolute Lymphocytes 1.6 10^3/uL (1.2-3.4); Absolute Monocytes 0.7 10^3/uL (0.1-0.6); Absolute Neutrophils 5.7 10^3/uL (1.4-6.5); Hematocrit 25.8 % (39.0-52.0); Hemoglobin 8.4 g/dL (13.0-18.0); Mean Corp Hgb Conc. 32.6 g/dL (33.0-37.0); Mean Corpuscular Hgb 33.2 pg (27.0-31.0); Mean Platelet Volume 9.4 fL (7.4-10.4); Nucleated Red Blood Cells % 0 % (-); Platelet Count 374 10^3/uL (130-400); Red Blood Cell Count 2.53 10^6/uL (4.70-6.10); Red Cell Dist. Width 15.3 % (11.5-14.5); White Blood Cell Count 8.1 10^3/uL (4.8-10.8)
[2024-09-30] MEDS: VIBRAMYCIN 100 MG PO (07:29)
[2024-09-30] MEDS: MIRALAX 17 GRAMS PO (07:29)
[2024-09-30] MEDS: FOLVITE 0.8 MG PO (07:29)
[2024-09-30] MEDS: DECADRON 2 MG PO (07:30)
[2024-09-30] MEDS: VITAMIN D3 (cholecalciferol) 25 MCG PO (07:30)
[2024-09-30] MEDS: DULCOLAX 5 MG PO (07:30)
[2024-09-30] MEDS: FLOMAX 0.4 MG PO (07:30)
[2024-09-30] MEDS: TOPROL XL 12.5 MG PO (07:31)
[2024-09-30] MEDS: NON-FORMULARY ITEM 120 MG PO (07:32)
[2024-09-30] MEDS: TYLENOL 1000 MG PO ×2 (07:34→15:18)
[2024-09-30 07:55] VITALS: BP 115/63
[2024-09-30 07:59] LABS: ALT (SGPT) 12 U/L (0-50); AST (SGOT) 26 U/L (17-59); Albumin 3.2 g/dl (3.5-5.0); Alkaline Phosphatase 51 U/L (38-126); Blood Urea Nitrogen 22 mg/dl (9-20); Carbon Dioxide 26 mmol/L (22-30); Chloride 108 mmol/L (98-107); Estimated Creatinine Clearance 85 ml/min; Glucose 148 mg/dl (70-99); Sodium 138 mmol/L (135-145); Total Bilirubin 0.3 mg/dl (0.2-1.3); Total Protein 5.5 g/dl (6.3-8.2); eGFR > 60.00
[2024-09-30] MEDS: DURAGESIC 12 MCG/HR PATCH 1 PATCH TRANSDERM (08:33)
--- NOTE | 2024-09-30 08:39 | W.PN.URO.CBU ---
Today's Communication / Plan
-
fill bladder 300cc or about remove anderson encourage voiding but if disytended ofr poor voiding then reinser [address] anderson and record bvolume
Assessment / Plan
-
urine clear hgb stable will remove anderson plan per hospitalist but if cannot void then we will rensert anderson by noon
Diagnosis
-
Date of Service: September 30, 2024
-
Patient Diagnosis:
Post Op Day:
Patient Diagnosis:
Post Op Day:
Patient Diagnosis:metastatic hormone resitant p cancer now with swollen rt leg without clots and painless hematuria and 800cc in bladder On asa and had xrt 1 month ago
Post Op Day:
Subjective
-
no hematuria
Objective
-
Vital Signs
Temp Pulse Resp BP Pulse Ox
98.1 F 76 18 115/63 95
09/30/24 07:55 09/30/24 07:55 09/30/24 07:55 09/30/24 07:55 09/30/24 07:55
Intake and Output
09/29/24 09/30/24 10/01/24
06:59 06:59 06:59
Intake Total 780 / 780 1160 / 1160
Output Total 06831 / 23800 7800 / 7800
Balance -28034 / -07885 -6640 / -6640
Intake:
Oral fluids 780 / 780 660 / 660
IV fluids (Total) 500 / 500
Normosol 500 / 500
Output:
True Urine Output from CBI 56254 / 20499 7800 / 7800
Laboratory Results
09/30/24 06:15
09/30/24 06:15
Review of Systems
-
: Difficulty Voiding
Physical Exam
-
General - well developed, well nourished, no acute distress
Chest - clear bilaterally
Abdomen - soft, non-tender, positive bowel sounds, no CVAT, no incisional pain or distention
Genitalia - normal
Rectal - normal
Skin - warm & dry with no rash
Neuro - AOx3, no motor deficits
Extremities - no clubbing, no cyanosis, no edema
Incision - clean, dry
Dressing - clean, dry, intact
Care Review
Data Reviewed
Discussed with: Nursing
--- NOTE | 2024-09-30 09:05 | PTCARENOTE ---
Crow removed per MD order, with no complications. 200ml instilled in bladder before removal per MD verbal order. Pt instructed to notify nurse when voiding occurs. will continue to monitor.
--- NOTE | 2024-09-30 09:55 | VNURNOTE ---
Home Health Liaison met with patient at bedside to discuss [facility] nurse/therapy, visits, schedule and homebound status. Patient is agreeable and understands that visits at home will be 2-3 x per week to assess and teach medical management. Awaiting
POC: home w/ anderson versus no anderson pending voiding trial. Patient stated he had a anderson at home in the past (had it for a week). Patient is aware that [facility] will contact them for start of care in 1-2 days after discharge from .
[facility] referral completed in [facility].
[2024-09-30] MEDS: PEPTO-BISMOL 2 TABLET PO (11:16)
--- NOTE | 2024-09-30 11:57 | W.PN.HOSP.TC ---
Today's Communication/Plan
-
TOV, if passed - DC
Assessment / Plan
Assessment / Plan
78yo M with PMHx of CAD s/p CABG, metastatic prostate cancer with metastasis to the bone, HLD, HTN, BPH, Hx of acute hypoxic failure 2/2 pneumonia in October 2023 came with 1 week of hematuria and LLE swelling lasted for the same period of time. found
in acute urinary retention. No LLE trauma noted. Started on CBI in ED and ruled out DVT with US. Had Cystoscopy, fulguration of multiple bleeding sites, evacuation of clot on 09/29/24, TOV starte don 09/30/24. If passed - can be d/c home as per
urologist, hosling ASA for 5 more days. patient to follow with his Oncology for treatment of his CA. Developed transient cough so started on Abx due to immunosuppressive state.
A/P:
#acute blood loss anemia 2/2 Hematuria due to bleeding CA
#Prostate CA with osseous mets with Hx of RT to bladder, cannot exclude radiation cystitis
#BPH
#Acute urinary retention
#Bilateral hydronephrosis 2/2 distal ureteral obstruction by CA
Might need nephrostomy, but with normal Cr - currently risk overweight benefit as discussed with urologist. Weekly BMP advised - patient and family verbalized understanding
Follow H&H
transfuse as needed
Urology consult: had cystoscopy on 09/29/24
CT abd/pelvis with simultaneous LLE swelling and possible radiation cystitis with hematuria
Avoid antiplatelets and anticoagulation
#chills with new cough in immunosuppressed patient
reasonable to treat empiric respiratory infection
Chest XR without pneumonia
COVID-19/Influenza PCR neg
#LLE swelling
DVT ruled out
2/2 CA progression and lymphostasis due to lymphadenopathy and CA invasion of extraprostatic soft tissue
Compression stockings thigh high can help
#GOC
With significant findings on CT scan, new developing lymphedema of LLE due to CA invasion of extraprostatic tissues, b/l hydronephrosis and obvious progression of the disease - Palliative care consult to discuss hospice. At this time patient will
prefer to work with oncologist on possible options, not ready for hospice
Onco consult: Aberiterone has been discussed with the patient by Dr. Eddy in the outpatient setting multiple times, and this would like be the next step in treatment.
#CAD s/p CABG
#Essential HTN
#HLD
#myotonic dystrophy
#chronic ambulatory dysfunction
#Dry eye
cont home meds
#Diverticulosis w/o diverticulitis
high fiber diet
DVt ppx on SCDs
Full code
I have spent at least 56min reviewing chart, test results, communication with consultants and direct patient care
Anticipated Discharge: Within 24 hours
Subjective/Interval History
-
Date of Service: September 30, 2024
Objective Data
-
Labs:
Laboratory Results
09/30/24
06:15
WBC 8.1
Hgb 8.4 L
Hct 25.8 L
Plt Count 374
Sodium 138
Potassium 5.0
Chloride 108 H
Carbon Dioxide 26
BUN 22 H
Creatinine 0.7
Glucose 148 H
Calcium 9.0
Total Bilirubin 0.3
AST 26
ALT 12
Alkaline Phosphatase 51
Vital Signs:
Vital Signs
Temp Pulse Resp BP Pulse Ox
98.1 F 76 18 115/63 95
09/30/24 07:55 09/30/24 07:55 09/30/24 07:55 09/30/24 07:55 09/30/24 07:55
I&O
09/29/24 09/30/24 10/01/24
06:59 06:59 06:59
Intake Total 780 / 780 1160 / 1160
Output Total 45704 / 31995 7800 / 7800 -200 / -200
Balance -55720 / -57098 -6640 / -6640 200 / 200
Review of Systems
-
History Source: Patient
All other systems: Reviewed and negative
Physical Exam
-
General: Comfortable
HEENT: Normocephalic
Respiratory: Clear to Auscultation
GI: Soft, Nontender and Nondistended
Neuro: Awake, Alert, Oriented and AO x 3
Psych: Calm
[2024-09-30 12:15] VITALS: BP 117/71; PULSE 72; O2SAT 95
--- NOTE | 2024-09-30 12:33 | W.PN.ONC ---
Today's Communication / Plan
-
Follow up with Dr. Pearson outpatient for adjuvent/alternative therapy recommendations.
Impression
Impression
Elier Delgadillo is an 78M with a past medical history of prostate adenocarcinoma with a [place] score of 9 and disease metastatic to bone and soft tissue. He is a patient of Dr. Pearson and is currently being treated with Orgovyx 120mg PO daily,
dexamethasone 2mg PO daily and Xgeva 120mg SQ q4wk. He has also recently been treated with one fraction of 800 cGY to L1-L4. Notably patient was initially treated with enzalutamide but developed pneumonitis. He presented to [facility] with 7 days of
hematuria and LLE swelling/weight gain. He is status post cystoscopy/clot evac/fulgaration with Dr. Finley.
Plan
Plan
We discussed adjuvant/alternative therapies with the patient.
These therapies will be discussed at greater length with patient and family in the outpatient setting, and there is no indication to change the patient's regimen while in the hospital.
Pneumonitis secondary to enzalutamide is a class effect and thus patient would not be a candidate for other ASRIs.
Aberiterone has been discussed with the patient by Dr. Eddy in the outpatient setting multiple times, and this would likely be the next step in treatment.
Patient would be an unlikely candidate for systemic chemotherapy with taxanes given his history of myotonic dystrophy type 2, although cabazitaxel may be an option given gentler side effect profile.
Also can consider Pluvicto if the above therapies fail.
Subjective/Objective
Subjective/Objective
Patient seen and examined at bedside. Feeling better today. TOV as managed by urology.
Vital Signs:
Vital Signs
Temp Pulse Resp BP Pulse Ox
98.1 F 76 18 115/63 95
09/30/24 07:55 09/30/24 07:55 09/30/24 07:55 09/30/24 07:55 09/30/24 07:55
Lab Results:
Laboratory Data
WBC 8.1 10^3/uL (4.8-10.8) 09/30/24 06:15
Hgb 8.4 g/dL (13.0-18.0) L 09/30/24 06:15
Plt Count 374 10^3/uL (130-400) 09/30/24 06:15
eGFR > 60.00 09/30/24 06:15
Orders
Orders
None.
--- NOTE | 2024-09-30 12:54 | W.DCSUMMARY ---
Discharge Summary
Discharge Data
Date of Admission: 09/27/24
Date of Discharge: 09/30/24
-
Pending Results: No
Hospital Course
78yo M with PMHx of CAD s/p CABG, metastatic prostate cancer with metastasis to the bone, HLD, HTN, BPH, Hx of acute hypoxic failure 2/2 pneumonia in October 2023 came with 1 week of hematuria and LLE swelling lasted for the same period of time. found
in acute urinary retention. No LLE trauma noted. Started on CBI in ED and ruled out DVT with US. Had Cystoscopy, fulguration of multiple bleeding sites, evacuation of clot on 09/29/24, TOV starte don 09/30/24. However patient did not pass and Anderson
was reinserted with successful drainage of 500ml mostly yellow urine, holding ASA for 5 more days. patient to follow with his Oncology for treatment of his CA. Developed transient cough so started on Abx due to immunosuppressive state. Patient to be
d/c with anderson and follow up with urologist upon d/c
I have spent at least 56min reviewing chart, test results, communication with consultants and direct patient care
Patient was managed for:
#acute blood loss anemia 2/2 Hematuria due to bleeding CA
#Prostate CA with osseous mets with Hx of RT to bladder, cannot exclude radiation cystitis
#BPH
#Acute urinary retention
#Bilateral hydronephrosis 2/2 distal ureteral obstruction by CA
#chills with new cough in immunosuppressed patient
#LLE swelling
#GOC
#CAD s/p CABG
#Essential HTN
#HLD
#myotonic dystrophy
#chronic ambulatory dysfunction
#Dry eye
#Diverticulosis w/o diverticulitis
Discharge Plan
-
Patient Disposition: Home (Routine Discharge)
Discharge Diagnosis/Procedures: hematuria
Diet: Regular
Activity: As tolerated
Blood Work: CBC in 5 days with family doctor, weekly BMP
Activity Restrictions/Additional Instructions:
Thigh-high compression stockings on LLE
Referrals:
Denise Grant MD [Active, Hematology / Oncology] - in less than 1 week
Linda Ng DO [Family Provider, Family Practice]
Dylan Tam MD [Active, Urology] - in one to two weeks
Referral Note: For urinary retention
Prescriptions:
New
cefuroxime axetil 500 mg tablet
500 mg PO BID Qty: 5 0RF
doxycycline hyclate 100 mg Capsule
100 mg PO Q12 Qty: 5 0RF
Continued
atorvastatin 40 mg tablet
40 mg PO QPM
tamsulosin 0.4 mg Capsule
0.4 mg PO BID Qty: 60 0RF
cholecalciferol (vitamin D3) [Vitamin D3] 10 mcg (400 unit) Tablet
25 mcg PO DAILY
folic acid 0.8 mg Capsule
0.8 mg PO DAILY
Orgovyx 120 mg Tablet
120 mg PO DAILY
polyethylene glycol 3350 [Miralax] 17 gram Powder In Packet
17 g PO DAILY
bisacodyl [Dulcolax (bisacodyl)] 5 mg Tablet,Delayed Release (Dr/Ec)
5 mg PO BID
Xgeva 120 mg/1.7 mL (70 mg/mL) Solution
120 mg SC Q4W
metoprolol succinate [Toprol XL] 25 mg Tablet Extended Release 24 Hr
12.5 mg PO DAILY
acetaminophen [Tylenol Extra Strength] 500 mg Tablet
1,000 mg PO TID
dexamethasone 2 mg Tablet
2 mg PO DAILY
gabapentin 300 mg Capsule
600 mg PO HS
oxycodone 5 mg Tablet
5 mg PO Q6HPRN PRN (Reason: severe pain)
fentanyl 12 mcg/hr Patch 72 Hour
1 patch TRANSDERMAL Q72H
Rx Instructions:
placed on 09/27/24
Held
aspirin 81 MG tablet,delayed release (DR/EC)
81 mg PO DAILY
Hold Instructions: Resume on 10/05/24.
Discharge Orders:
Discharge Patient (As Directed); Ordered 09/30/24
Ordered By: Kota Seo
Discharge Date and Time
Print Language: ARABIC
[2024-09-30] MEDS: STERILE WATER FOR INJECTION 10 ML IV (14:19)
[2024-09-30] MEDS: ROCEPHIN 1000 MG IV (14:20)
[2024-09-30 15:49] VITALS: BP 126/71
--- NOTE | 2024-09-30 16:24 | PTCARENOTE ---
education on anderson care provided to patient and family. Patient states verbal understanding. pt prepared for d/c
== END 2024-09-30 16:39 | disposition home health service (06) | DRG 715 ==
LOC: 4 WEST ACU 14:48
PROVIDERS: Clinical Nurse Specialist Family Health; ADMITTING PHYSICIAN Internal Medicine; CONSULT PHYSICIAN Nurse Practitioner Gerontology; CONSULT PHYSICIAN Specialist; EMERGENCY PHYSICIAN Emergency Medicine; FAMILY PHYSICIAN Family Medicine; OTHER PHYSICIAN Internal Medicine Hematology & Oncology
PROC: 0T5B8ZZ Destruction of Bladder, Via Natural or Artificial Opening Endoscopic (ICD-10-PCS; 2024-09-29)
PROC: 0TCB8ZZ Extirpation of Matter from Bladder, Via Natural or Artificial Opening Endoscopic (ICD-10-PCS; 2024-09-29)
DX: C61 Malignant neoplasm of prostate (principal); C79.51 Secondary malignant neoplasm of bone; N30.41 Irradiation cystitis with hematuria; D62 Acute posthemorrhagic anemia; N13.1 Hydronephrosis with ureteral stricture, not elsewhere classified; Y84.2 Radiological procedure and radiotherapy as the cause of abnormal reaction of the patient, or of later complication, without mention of misadventure at the time of the procedure; N40.1 Benign prostatic hyperplasia with lower urinary tract symptoms; I10 Essential (primary) hypertension; I25.10 Atherosclerotic heart disease of native coronary artery without angina pectoris; Z95.5 Presence of coronary angioplasty implant and graft; Z95.1 Presence of aortocoronary bypass graft; G71.11 Myotonic muscular dystrophy; K57.30 Diverticulosis of large intestine without perforation or abscess without bleeding; Z11.52 Encounter for screening for COVID-19; Z79.82 Long term (current) use of aspirin; Z87.01 Personal history of pneumonia (recurrent)
CPT/HCPCS: 51702; 51798; 71046; 74176; 80048; 80053; 81003; 81015; 82607; 82728; 82746; 83540; 83550; 85025; 86850; 86900; 86901; 87070; 87147; 87502; 87811; 93971; 96360; 96361; 97163; 97167; 97530; 97535; 99285

== ENCOUNTER 2024-10-07 15:15 | Emergency (ER) | payer MEDICARE, OTHER, SELFPAY ==
[2024-10-07 15:20] VITALS: BP 92/58
--- NOTE | 2024-10-07 17:27 | HPS.HSE ---
Family Physician
-
Family Physician: NOT KNOW UNKNOWN - PT DOES
Chief Complaint
-
Urinary retention from Crow catheter due to hematuria
Medical History
Past Medical History
Past Medical History: Reports Other
Past Surgical History: Reports Other
Social History
Tobacco: Non-smoker
Alcohol: None
Drug: None
Personal:
Living: With Family ()
Employment: Retired
Family History
Family History: Not pertinent
Allergies / Home Medications
Allergies reflects when Allergies were last updated in [facility].
Home Medications with original date entered in [facility]
Review of Systems
-
History Source: Patient
A 12 point ROS was completed and negative except as noted: Yes
Constitutional: Denies Fever or Fatigue
EENT: Denies Sore Throat, Mouth Swelling or Runny Nose
Respiratory: Denies Cough or Trouble Breathing
Cardiac: Denies Chest Pain, Diaphoresis, Palpitations or Syncope
Abdomen/GI: Denies Abdominal Pain, Nausea, Vomiting, Diarrhea or Constipated
: Reports Crow (Without urine output since this a.m.)
Musculoskeletal: Reports Joint Pain and Edema (Chronic left leg edema/lymphadenopathy due to metastatic prostate CA)
Skin: Denies Itching or Rash
Neurological: Denies Dizzy, Headache or Weakness
Endocrine: Reports No Symptoms
Hematologic/Lymphatic: Reports No Symptoms
Psych: Reports Calm
Physical Exam
Vital Signs
Vital Signs
Temp Pulse Resp BP Pulse Ox
98.5 F 88 16 92/58 96
10/07/24 15:20 10/07/24 15:20 10/07/24 15:20 10/07/24 15:20 10/07/24 15:20
Physical Exam
HEENT: NormoCephalic, Anicteric, Moist mucous membranes, PERRLA, [place] Conjunctivae and No Ptosis
Respiratory: No Wheezes, Rales or Rhonchi
Cardiac: S1/S2, Regular Rhythm and Peripheral Edema (Left thigh +1 nonpitting edema, no edema left lower extremity only upper, right leg no edema); No Murmur, Rub or Gallop
Breast: Deferred by me
GI: Soft, Non Tender, Non Distended, Normal Bowel Sounds and No Hepatosplenomegaly
Genito-urinary: Crow (Will require three-way Crow)
Musculoskeletal: No Clubbing, No Cyanosis and Edema, Left Lower Extremity (Plus to the left upper thigh due to metastatic prostatic CA); No Edema, Left Upper Extremity, Edema, Right Upper Extremity or Edema, Right Lower Extremity
Skin: Warm and Dry; No Rash or Jaundice
--- NOTE | 2024-10-07 17:32 | ED.GENMED ---
Addendum entered and electronically signed by Ludwin Kaplan MD 10/07/24 19:33:
Patient's bladder irrigation is incredibly clear. He only had 2 tiny clots. The hospitalist discussed with urology who felt he could be discharged and did not need to be admitted. Changed to a to a Crow. Medically stable no infectious symptoms.
Normal white count hemoglobin is stable renal function stable
Original Note:
History of Present Illness
General
Chief Complaint: Male Genito-Urinary Symptoms
Source: patient and family
Exam Limitations: none
Time Seen by Provider: 10/07/24 16:43
History of Present Illness
History of Present Illness:
Patient with recurrent hematuria clots and Crow obstruction. Has been irrigated multiple times at home with recurrence of issues. Recent admission for metastatic prostate CA radiation cystitis bladder cauterization and recurrent Crow placement.
No fever chills or other complaints.
Past History
Past History
ED Past Medical History: CAD, Cancer (Metastatic prostate CA), HTN, Other (Myotonic dystrophy) and Other (Lower extremity edema)
ED Past Surgical History: Cardiac (cabg x 3, stents x 2)
Social History
Tobacco: Non-smoker
Alcohol: None
Drug: None
Personal:
Living: with family
Review of Systems
Review of Systems
All Other Systems: Not applicable
Constitutional: Denies fever or chills
Cardiac: Reports no symptoms
ABD/GI: Reports no symptoms
Phy Exam
Physical Exam
Physical Exam:
GENERAL: Alert and oriented in no apparent distress. Generally weak appearing
EYE: Orbits normal.
NECK: Supple, no significant adenopathy.
ENT: Pharynx without erythema
CARDIAC: Regular rate and rhythm without any obvious murmurs.
LUNGS: Clear breath sounds,normal
ABDOMEN: Soft, without focal tenderness or distention. Crow in place. Genitalia normal. No outflow from the catheter. Small amount of blood urine and clots in the bag
NEUROLOGICAL: Alert and oriented , grossly non-focal
SKIN: Warm and dry, no rash or lesion, no discoloration, skin intact.
MUSCULOSKELETAL: Left greater than right edema
PSYCH: Normal and appropriate interaction.
Course
Orders/Labs/Results
Orders:
Orders
10/07/24 17:04
CBI- Treatment PRN
Solution: nss
IV Insert/Care/Rem.- Treatment PRN
Basic Metabolic Panel Urgent
Complete Blood Count/With Diff Urgent
10/07/24 17:22
Lidocaine 2% [Lidocaine Uro-Jet 2%] 1 syringe .ROUTE .[employer] ONE
10/07/24 17:40
Type And Crossmatch [Type+Screen] Urgent
Vital Signs
Initial and Last Documented VS:
Initial Vital Signs
Temp Pulse Resp BP Pulse Ox
98.5 F 88 16 92/58 96
10/07/24 15:20 10/07/24 15:20 10/07/24 15:20 10/07/24 15:20 10/07/24 15:20
Last Documented Vital Signs
Temp Pulse Resp BP Pulse Ox
98.5 F 88 16 92/58 96
10/07/24 15:20 10/07/24 15:20 10/07/24 15:20 10/07/24 15:20 10/07/24 15:20
MDM/Problems Addressed
Differential Diagnosis Includes:
Recurring episodes of catheter obstruction secondary to clots. CBI. Check labs and renal function. Discussed with urology. Nothing supportive issue.
*Pulse Oximetry
Patient hypoxic: no (96%)
*Critical Care Note
Total Time (30-74mins, 75-104mins- exclusive of procedures): Not Applicable
Update Note
Update Note:
Discussed with hospitalist and with urology. They will admit for possible recurrent cauterization. Cleared well with CBI
ED Attending Note
-
Portions of this chart may have been created with voice recognition software.� Occasional wrong word or��sound alike� substitutions may have occurred due to the inherent limitations of voice recognition software.
Discharge Plan
Departure
Patient Disposition: Admit
Date of Disposition: 10/07/24
Time of Disposition: 18:08
Presentation/result/management discussed w/ accepting MD/DO: Urology
Discharge Problem:
Recurrent catheter obstruction, Secondary to hematuria/clots, History of metastatic prostate CA
Prescriptions:
No Action
aspirin 81 MG tablet,delayed release (DR/EC)
81 mg PO DAILY
atorvastatin 40 mg tablet
40 mg PO QPM
tamsulosin 0.4 mg Capsule
0.4 mg PO BID Qty: 60 0RF
cholecalciferol (vitamin D3) [Vitamin D3] 10 mcg (400 unit) Tablet
25 mcg PO DAILY
folic acid 0.8 mg Capsule
0.8 mg PO DAILY
Orgovyx 120 mg Tablet
120 mg PO DAILY
polyethylene glycol 3350 [Miralax] 17 gram Powder In Packet
17 g PO DAILY
bisacodyl [Dulcolax (bisacodyl)] 5 mg Tablet,Delayed Release (Dr/Ec)
5 mg PO BID
Xgeva 120 mg/1.7 mL (70 mg/mL) Solution
120 mg SC Q4W
metoprolol succinate [Toprol XL] 25 mg Tablet Extended Release 24 Hr
12.5 mg PO DAILY
acetaminophen [Tylenol Extra Strength] 500 mg Tablet
1,000 mg PO TID
dexamethasone 2 mg Tablet
2 mg PO DAILY
gabapentin 300 mg Capsule
600 mg PO HS
oxycodone 5 mg Tablet
5 mg PO Q6HPRN PRN (Reason: severe pain)
fentanyl 12 mcg/hr Patch 72 Hour
1 patch TRANSDERMAL Q72H
Rx Instructions:
placed on 09/27/24
cefuroxime axetil 500 mg tablet
500 mg PO BID Qty: 5 0RF
doxycycline hyclate 100 mg Capsule
100 mg PO Q12 Qty: 5 0RF
Referrals:
UNKNOWN - PT DOES,NOT KNOW [Family Provider]
Interventions
Interventions:
*Risk Screen - Suicide Last Done: 10/07/24 15:20
*Neglect/Abuse Screening Last Done: 10/07/24 15:20
Discharge Date and Time
Print Language: IVORIAN
--- NOTE | 2024-10-07 18:07 | W.PN.UPDATE ---
Update Note
Progress Note Update
CONSULTATION TO UROLOGIST by Hospitalist
This note serves as an addendum to the H&P by child caregiver private home [facility] Jacqueline Evangelista
HPI
78M of CAD s/p CABG, metastatic prostate cancer with metastasis to the bone, XRT cystitis, recurrent Hematuria HLD, HTN, BPH, HX LLE swelling , acute urinary retention, CBI. He was ruled out DVT with US on last admission.
He also had Cystoscopy, fulguration of multiple bleeding sites, evacuation of clot on 09/29/24. Failed TOV on 09/30/24. Anderson was reinserted with successful drainage of 500ml mostly yellow urine, holding ASA for 5 more days. patient to follow with
his Oncology for treatment of his CA. Prior to DC on last admission , he developed transient cough so started on Abx due to immunosuppressive state. He was DC'd on anderson and follow up with urologist upon d/c
He retured to ER for
- stop drainage of indwelling F Cath
- Recurrent clot retention ?
Vital Signs
Temp Pulse Resp BP Pulse Ox
98.5 F 88 16 92/58 96
10/07/24 15:20 10/07/24 15:20 10/07/24 15:20 10/07/24 15:20 10/07/24 15:20
PE
Gen: no toxic , appropriately conversant
HEENT: anicteric
Neck: supple
Lungs: CTA
Cor: RRR S1 S2
Abdomen: soft , benign
: clear 500 cc urine coming out following one large clot
[employer]ATIONS DEPUTY DIRECTOR: AAO3 , NFND
MS: no edema
Psych: appropriate
Data: pending
09/27/24 CT Abd/pelvis Wo Iv Cont
- Bilateral hydroureteronephrosis, moderate to severe left and mild right.
- Likely secondary to distal ureteral obstruction from the patient's known prostate cancer with extraprostatic extension into the adjacent pelvic soft tissues, left greater than right, and marjan metastases in the pelvis.
- Hyperattenuating blood products in the urinary bladder lumen.
- Osteoblastic metastatic disease.
- Cholelithiasis.
Last hospitalist admission: 09/27/24 -09/30/24
DXS:
acute blood loss anemia 2/2 Hematuria due to bleeding CA
Prostate CA with osseous mets with Hx of RT to bladder, cannot exclude radiation cystitis
BPH
Acute urinary retention
Bilateral hydronephrosis 2/2 distal ureteral obstruction by CA
chills with new cough in immunosuppressed patient
LLE swelling
GOC
CAD s/p CABG
Essential HTN
HLD
Myotonic dystrophy
Chronic ambulatory dysfunction
Dry eye
Diverticulosis w/o diverticulitis
ASSESSMENT & PLAN
Pending Rx reconciliation
Immunosuppressed host
Recurrent clot urinary retention: clear 500 cc urine coming out following one large clot on CBI
Clot blockage of indwelling F cath
Known B/L Lt > Rt mod to severe hydroureteronephrosis
Underlying distal ureteral obstruction due to invasive prostate cancer with extraprostatic extension of pelvic soft tissues,
Underlying Prostate adenocarcinoma with a Washburn score of 9 and disease metastatic to bone and soft tissue
Of note: Per Onco, patient would be an unlikely candidate for systemic chemotherapy with taxanes given his history of myotonic dystrophy type 2, although cabazitaxel may be an option given gentler side effect
- status post cystoscopy/clot evac/fulgaration with Dr. Finley. (09/09/24)
- Known to Dr. Pearson : s/p adjuvant/alternative therapies discussion with oncologist on ast admission
- Current Chemo: being treated with Orgovyx 120mg PO daily, dexamethasone 2mg PO daily and Xgeva 120mg SQ q4wk.
- recently s/p Tx with one fraction of 800 cGY to L1-L4.
- NPO tonight per Uro
- B/L PCN tube vs. Tranexamic acid with repeat cystoscopy/clot evac/fulgaration with Dr. Finley.
- tamsulosin
- Uro consulted to hospitalist
Goal of care:
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
However is time patient will prefer to work with oncologist on possible options, not ready for hospice
Onco consult: Aberiterone has been discussed with the patient by Dr. Eddy in the outpatient setting multiple times, and this would like be the next step in treatment.
- On fentanyl 12 mcg/hr Patch 72 Hour
- Oncology consult
HX Blood loss anemia 2/2 Hematuria due to bleeding CA
Prior Normal Cr - pending admission labs
- Follow H&H
- Avoid antiplatelets and anticoagulation
HX LLE swelling
- due to 2/2 CA progression+ lymphostasis due to lymphadenopathy +CA invasion of extraprostatic soft tissue
- NEG DVT on last admission
- Compression stockings thigh high can help
Diverticulosis w/o diverticulitis
- NPO
HX CAD s/p CABG
Essential HTN
- on metoprolol succinate [Toprol XL] 2
HLD
- atorvastatin
Myotonic dystrophy
Chronic ambulatory dysfunction , use WC
Dry eye
Lives at home with spouse
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
- cont home Meds
DNR confirmed by patient in the presence of family
Disposition:
Hospitalist CLOTH WEIGHER d/w ER attd ( DR Kaplan) and Urologist ( Dr Acuña)
ER attd dw Family - family opted to DC and go home, and OP VN FU ( ER conulst for VN )
Family already signed up for home core driller helper
[2024-10-07 19:01] LABS: % Basophils 0.6 % (0-2); % Eosinophils 2.1 % (0-6); % Immature Granulocytes 0.4 % (0-0.5); % Lymphocytes 16.6 % (20.5-51.1); % Monocytes 9.8 % (1.7-9.3); % Neutrophils 70.5 % (42.2-75.2); Absolute Eosinophils 0.2 10^3/uL (0-0.7); Absolute Lymphocytes 1.2 10^3/uL (1.2-3.4); Absolute Monocytes 0.7 10^3/uL (0.1-0.6); Absolute Neutrophils 5.1 10^3/uL (1.4-6.5); Hemoglobin 9.6 g/dL (13.0-18.0); Mean Corp Hgb Conc. 34.3 g/dL (33.0-37.0); Mean Corpuscular Hgb 33.6 pg (27.0-31.0); Mean Corpuscular Volume 97.9 fL (80.0-94.0); Nucleated Red Blood Cells % 0 % (-); Platelet Count 315 10^3/uL (130-400); Red Blood Cell Count 2.86 10^6/uL (4.70-6.10); Red Cell Dist. Width 14.1 % (11.5-14.5); White Blood Cell Count 7.2 10^3/uL (4.8-10.8)
--- NOTE | 2024-10-07 19:03 | CON.HOSP ---
Family Physician
-
Family Physician: NOT KNOW UNKNOWN - PT DOES
Chief Complaint
-
Obstructed Crow catheter
History of Present Illness
78-year-old male who arrives to the ER stating that his indwelling Crow catheter that was placed 2 days ago on 10/05/2024 has stopped draining this a.m. He has history of chronic hematuria metastatic prostate cancer to bone with chronic bilateral
hydronephrosis. He had recent radiation cystitis admission 09/27-09/30 requiring CBI, cystoscopy with transischemic acid application by Dr. Finley he was made aware according to urology that this was likely to bleed again. HE is currently being
treated with Orgovyx 120mg PO daily, dexamethasone 2mg PO daily and Xgeva 120mg SQ q4wk. He has also recently been treated with one fraction of 800 cGY to L1-L4 He is followed by [facility] Dr. Pearson. He denies fever, chills, chest
pain, palpitations, cough, shortness of breath, abdominal pain, nausea, vomiting, diarrhea. We were asked by Dr. Finley from urology to admit the patient as he would likely need procedure however after patient was fully worked up in the ER he had
500 cc of retained urine with a single clot only he had CBI 1500 cc draining completely clear. The urologist was updated on this and stated he did not need to be admitted now he should go home with a larger Crow catheter follow-up outpatient and
visiting nurses should show them how to flush the catheter at home if it becomes obstructed
Past medical history includes chronic urinary retention due to metastatic prostate cancer requiring chronic Crow catheter September 2024, metastatic prostate cancer to bone and right hydroureter with progression Dx 2023 on current chemotherapy, new
metastatic prostate cancer to further intra-abdominal and left thigh causing lymphedema found on CT July chronic pain secondary to metastatic prostate cancer to bone on chronic oral opiates, HTN, HLD, CAD status post multiple stents, CABG x 3
vessel 13 years ago follows with [facility] [place] cardiology, myotonic dystrophy, RLD, pneumonia with hypoxic respiratory failure October 2023 secondary to Xtandi dry eye syndrome.
Medical History
Past Medical History
Past Medical History: Reports Other
Additional Past Medical History:
Chronic urinary retention due to metastatic prostate cancer requiring chronic Crow catheter September 2024
New metastatic progression to left thigh causing chronic lymphedema�Dx September 2024
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
Chronic pain secondary to metastatic prostate cancer to bone on chronic oral opiates
Radiation cystitis requiring cystoscopy and transischemic acid due to hematuria Dx September 2024
pneumonia with hypoxic respiratory failure October 2023 secondary to Xtandi
HTN
HLD
CAD status post multiple stents
CABG x 3 vessel 13 years ago follows with [facility] cardiology
myotonic dystrophy,
RLD
dry eye syndrome
Chronic ambulatory dysfunction uses rollator baseline
Past Surgical History: Reports Other
Additional Past Surgical History:
CABG x 3 vessel 13 years ago follows with [facility]ology
Multiple cardiac stents
Prostate biopsy 2023
Radiation cystitis requiring cystoscopy and transischemic acid due to hematuria Dx September 2024
Social History
Tobacco: Non-smoker
Alcohol: None
Drug: None
Personal:
Living: With Family
Employment: Retired
Family History
Family History: Reviewed & Not Pertinent
Allergies / Home Medications
Allergies reflects when Allergies were last updated in [facility].
Home Medications with original date entered in [facility]
Allergy/Medication List:
Allergies
Allergy/AdvReac Type Severity Reaction Status Date / Time
clopidogrel bisulfate (From Allergy Hives Verified 10/07/24 15:20
Plavix)
ezetimibe (From Vytorin Allergy muscle Verified 10/07/24 15:20
10-10) aches
simvastatin (From Vytorin Allergy muscle Verified 10/07/24 15:20
10-10) aches
succinylcholine Allergy does not Verified 10/07/24 15:20
wake up
Home Medications
atorvastatin 40 mg tablet 40 mg PO QPM High cholesterol 07/02/22
cholecalciferol (vitamin D3) 10 mcg (400 unit) tablet (Vitamin D3) 25 mcg PO DAILY Supplement 10/25/23
folic acid 0.8 mg capsule 0.8 mg PO DAILY Supplement 10/25/23
relugolix 120 mg tablet (Orgovyx) 120 mg PO DAILY PROSTATE CANCER 10/25/23
bisacodyl 5 mg tablet,delayed release (Dulcolax (bisacodyl)) 5 mg PO BID Constipation 04/03/24
denosumab 120 mg/1.7 mL (70 mg/mL) subcutaneous solution (Xgeva) 120 mg SC Q4W 04/03/24
polyethylene glycol 3350 17 gram oral powder packet (Miralax) 17 g PO DAILYPRN PRN constipation 04/03/24
acetaminophen 500 mg tablet (Tylenol Extra Strength) 1,000 mg PO BID mild Pain 09/27/24
fentanyl 12 mcg/hr transdermal patch 1 patch transdermal Q72H Pain 09/27/24
gabapentin 300 mg capsule 600 mg PO HS Neurological Condition 09/27/24
metoprolol succinate 25 mg tablet,extended release 24 hr (Toprol XL) 12.5 mg PO DAILY Blood Pressure 09/27/24
oxycodone 5 mg tablet 5 mg PO Q6HPRN PRN severe pain 09/27/24
Review of Systems
-
History Source: Patient and Family (Son and at bedside)
A 12 point Review of Systems was completed except as noted: Yes
Constitutional: Denies Fever or Fatigue
EENT: Denies Sore Throat or Runny Nose
Respiratory: Denies Cough, Hemoptysis or Trouble Breathing
Cardiac: Denies Chest Pain, Palpitations or Syncope
Abdomen/GI: Denies Abdominal Pain, Nausea, Vomiting, Diarrhea, Constipated or Bloody Stools
: Reports Crow (Obstructed)
Musculoskeletal: Reports Edema (Bilateral leg edema left upper thigh slightly increased than right patient has been wearing teds dressings); Denies Joint Pain
Skin: Denies Itching or Rash
Neurological: Denies Dizzy, Headache or Weakness
Endocrine: Reports No Symptoms
Hematologic/Lymphatic: Reports No Symptoms
Psych: Reports Calm
Physical Exam
Vital Signs
Vital Signs
Temp Pulse Resp BP Pulse Ox
98.5 F 88 16 92/58 96
10/07/24 15:20 10/07/24 15:20 10/07/24 15:20 10/07/24 15:20 10/07/24 15:20
Physical Exam
General: No Apparent Distress; Negative Pain or Fever
HEENT: Normocephalic, Anicteric and Moist Mucous Membranes
Respiratory: Clear; Negative Wheezes, Rales or Rhonchi
Cardiac: S1/S2, Regular Rhythm and Peripheral Edema (Bilateral leg lymphedema left upper calf greater than right with known prostate mets); Negative Murmur or Rub
Breast: Deferred by me
GI: Soft, Non Tender, Non Distended, Normal Bowel Sounds and No Hepatosplenomegaly
Rectal: Deferred by Provider
Musculoskeletal: No Clubbing, No Cyanosis and Edema (Bilateral leg lymphedema left upper calf greater than right with known prostate mets)
Skin: Warm and Dry; Negative Rash or Jaundice
Neuro: AO x 3 and No Motor Deficits; Negative Slurred Speech, Facial Droop, Tremors or Nonfocal/Grossly Intact
Psych: Calm
Laboratory Results
-
Laboratory Results
10/07/24 18:39
Impression / Plan
-
Impression/plan:
Medication consult from urology
# Obstructed Crow catheter single clot with urinary retention/chronic indwelling Crow catheter -urinary retention (placed recent admission 09/27/2024) due to radiation cystitis in setting of metastatic prostate cancer to Bone
#Chronic bilateral hydronephrosis
#BPH
-Completed outpatient course cefuroxime 500 mg twice daily and doxycycline 100 mg every 12 hours on 10/02/24
Catheter was changed on 10/05/2024
-Consult UROLOGY �Dr. Finley aware
500 cc of clear yellow urine was obtained after single clot was irrigated by nurse in the ER today 10/07/2024
Catheter was changed in ER to CBI is draining clear in color no hematuria
- Continue Flomax 0.4 mg p.o. twice daily with hold parameters
- Hold aspirin 81 mg daily- this was d//c'd by pcp per family
UPDATE @1900
We were asked by Dr. Finley from urology to admit the patient as he would likely need procedure however after patient was fully worked up in the ER he had 500 cc of retained urine with a single clot only he had CBI 1500 cc draining completely
clear.
The urologist was updated on this and stated
PLAN: he did not need to be admitted now he should go home with a larger Crow catheter follow-up outpatient and visiting nurses should show them how to flush the catheter at home if it becomes obstructed
#Prostate CA with osseous mets and R hydroureter with progression and invasion of left thigh causing lymphedema /lymphadenopathy and invasion of extra prostatic soft tissue
#History of pneumonitis with hypoxic respiratory failure October 2023 from Xtandi
- Continue dexamethasone 2 mg daily, Orgovyx 120 mg daily
- Patient receives Xgeva 120 mg SQ every 4 weeks
He was seen by oncology recent made admission with discussion of adjunct alternative therapies such as aberitaterone or Pluvicto if therapies fail
#Essential HTN with history of labile hypotension
BP 92/58
-Continue metoprolol succinate 6.25 mg mg daily(was just decreased from 12.5 mg daily 0with hold parameters, Flomax 0.4 mg p.o. twice daily with hold parameters
- Patient had lisinopril DC'd did take yesterday 10/06/2024 and metoprolol decreased in half due to hypotension
#Chronic pain secondary to metastatic prostate cancer to bone on chronic oral opiates
-Continue Tylenol 1000 mg 3 times daily, fentanyl patch 12 mcg every 72 H, oxycodone 5 mg every 6 hours as needed severe pain, bowel regimen
# Chronic left thigh swelling due to CA progression/lymphadenopathy with invasion extraprostatic soft tissue
DVT ruled out May admission
-2/2 CA progression and lymphostasis due to lymphadenopathy and CA invasion of extraprostatic soft tissue
-Compression stockings thigh high can help
#CAD s/p CABG x 3 vessel 13 years ago
#History of CAD with multiple stents
follows with [facility]ology
-Hold aspirin
-Continue statin
#HLD
-Continue statin
#Myotonic dystrophy
#RLD
#Chronic ambulatory dysfunction uses rollator baseline
#Dry eye syndrome�continue Systane
DNR per patient with at bedside
[2024-10-07 19:14] LABS: Blood Urea Nitrogen 18 mg/dl (9-20); Calcium 9.2 mg/dl (8.4-10.2); Carbon Dioxide 24 mmol/L (22-30); Chloride 108 mmol/L (98-107); Glucose 95 mg/dl (70-99); Potassium 4.5 mmol/L (3.5-5.1); Sodium 138 mmol/L (135-145); eGFR > 60.00
[2024-10-07 20:29] VITALS: BP 109/72
== END 2024-10-07 20:34 | disposition home or self-care (01) ==
LOC: EMR 15:15
PROVIDERS: EMERGENCY PHYSICIAN Emergency Medicine; OTHER PHYSICIAN Internal Medicine
DX: T83.091A Other mechanical complication of indwelling urethral catheter, initial encounter (principal); X58.XXXA Exposure to other specified factors, initial encounter; C61 Malignant neoplasm of prostate; C79.51 Secondary malignant neoplasm of bone; D50.0 Iron deficiency anemia secondary to blood loss (chronic); E78.5 Hyperlipidemia, unspecified; I10 Essential (primary) hypertension; I25.10 Atherosclerotic heart disease of native coronary artery without angina pectoris; Z79.52 Long term (current) use of systemic steroids; Z95.1 Presence of aortocoronary bypass graft; Z95.5 Presence of coronary angioplasty implant and graft; G71.11 Myotonic muscular dystrophy; Z79.899 Other long term (current) drug therapy
CPT/HCPCS: 51702; 99283; 80048; 85025; 86850; 86900; 86901